=== PATIENT | male | born 1965 | race Caucasian/White ===

== ENCOUNTER 2017-09-18 12:34 | Day surgery (SDC) | payer OTHER ==
[~2017-09-18 12:34] MED LIST: ACET325 PO; ALBIPROI INH; ALBU90OI INH; ATOR20 PO; AZIT250 PO; Augmentin 875-1 EACH PO; Bactrim Ds Tab1 EACH PO; CODACE30 PO; FLUV80CR; GLIP10 PO; HYDACE5 PO; HYDGUAL120 PO; JANUMET PO; Janumet 50-5001 EACH PO; K-Dur 20 meq T20 MEQ PO; LISHYD2012; LISHYD2012 PO; LISI20 PO; LOVA20 PO; Lasix40 MG PO; Norco 10-325 T1 EACH PO; OXYACE5T PO; PRED20 PO; RXHYDACE PO; SITA50T2 PO; ZESTORETIC 20-1 EAC1 PO; ZESTORETIC 20-121 EA; [UNRECOGNIZED DRUG - OTHER]; [UNRECOGNIZED DRUG - REMARK]
[2018-01-01] MEDS ORDERED: LISI20 PO (14:42)
[2018-01-01] MEDS ORDERED: Bactrim Ds Tab1 EACH PO (14:43)
[2018-01-01] MEDS ORDERED: HYDR1TAB94 PO (14:44)
== END 2017-09-18 22:50 | disposition home or self-care (01) ==
LOC: WOUND 12:34
PROC: 0HBMXZZ Excision of Right Foot Skin, External Approach (ICD-10-PCS; principal; 2017-09-18)
DX: Z48.00 Encounter for change or removal of nonsurgical wound dressing (principal); E11.621 Type 2 diabetes mellitus with foot ulcer; I10 Essential (primary) hypertension; L97.519 Non-pressure chronic ulcer of other part of right foot with unspecified severity
CPT/HCPCS: 87070; 87075; 87077; 87147; 87186; 87205; G0463

== ENCOUNTER 2017-09-25 13:00 | Day surgery (SDC) | payer OTHER ==
[2018-01-01] MEDS ORDERED: LISI20 PO (14:42)
[2018-01-01] MEDS ORDERED: Bactrim Ds Tab1 EACH PO (14:43)
[2018-01-01] MEDS ORDERED: HYDR1TAB94 PO (14:44)
== END 2017-09-25 23:19 | disposition home or self-care (01) ==
LOC: WOUND 13:00
PROC: 0HBMXZZ Excision of Right Foot Skin, External Approach (ICD-10-PCS; principal; 2017-09-25)
DX: E11.621 Type 2 diabetes mellitus with foot ulcer (principal); L97.519 Non-pressure chronic ulcer of other part of right foot with unspecified severity; I10 Essential (primary) hypertension; L89.899 Pressure ulcer of other site, unspecified stage
CPT/HCPCS: G0463

== ENCOUNTER 2017-10-02 11:31 | Day surgery (SDC) | payer OTHER ==
[2018-01-01] MEDS ORDERED: LISI20 PO (14:42)
[2018-01-01] MEDS ORDERED: Bactrim Ds Tab1 EACH PO (14:43)
[2018-01-01] MEDS ORDERED: HYDR1TAB94 PO (14:44)
== END 2017-10-02 16:26 | disposition home or self-care (01) ==
LOC: WOUND 11:31
PROC: 0HBMXZZ Excision of Right Foot Skin, External Approach (ICD-10-PCS; principal; 2017-10-02)
DX: Z48.00 Encounter for change or removal of nonsurgical wound dressing (principal); E11.621 Type 2 diabetes mellitus with foot ulcer; I10 Essential (primary) hypertension; L89.899 Pressure ulcer of other site, unspecified stage
CPT/HCPCS: G0463

== ENCOUNTER 2017-10-08 12:59 | Day surgery (SDC) | payer OTHER ==
[2018-01-01] MEDS ORDERED: LISI20 PO (14:42)
[2018-01-01] MEDS ORDERED: Bactrim Ds Tab1 EACH PO (14:43)
[2018-01-01] MEDS ORDERED: HYDR1TAB94 PO (14:44)
== END 2017-10-08 22:58 | disposition home or self-care (01) ==
LOC: WOUND 12:59
DX: Z48.00 Encounter for change or removal of nonsurgical wound dressing (principal); E11.621 Type 2 diabetes mellitus with foot ulcer; I10 Essential (primary) hypertension; L89.899 Pressure ulcer of other site, unspecified stage; L97.519 Non-pressure chronic ulcer of other part of right foot with unspecified severity
CPT/HCPCS: G0463

== ENCOUNTER 2017-10-09 13:40 | Day surgery (SDC) | payer OTHER ==
[2018-01-01] MEDS ORDERED: LISI20 PO (14:42)
[2018-01-01] MEDS ORDERED: Bactrim Ds Tab1 EACH PO (14:43)
[2018-01-01] MEDS ORDERED: HYDR1TAB94 PO (14:44)
== END 2017-10-09 16:12 | disposition home or self-care (01) ==
LOC: WOUND
DX: Z48.00 Encounter for change or removal of nonsurgical wound dressing (principal); E11.621 Type 2 diabetes mellitus with foot ulcer; I10 Essential (primary) hypertension; L89.899 Pressure ulcer of other site, unspecified stage; L97.519 Non-pressure chronic ulcer of other part of right foot with unspecified severity
CPT/HCPCS: G0463

== ENCOUNTER 2017-10-16 12:58 | Day surgery (SDC) | payer OTHER ==
[2018-01-01] MEDS ORDERED: LISI20 PO (14:42)
[2018-01-01] MEDS ORDERED: Bactrim Ds Tab1 EACH PO (14:43)
[2018-01-01] MEDS ORDERED: HYDR1TAB94 PO (14:44)
== END 2017-10-16 15:57 | disposition home or self-care (01) ==
LOC: WOUND 12:58
PROC: 0HBMXZZ Excision of Right Foot Skin, External Approach (ICD-10-PCS; principal; 2017-10-16)
DX: Z48.00 Encounter for change or removal of nonsurgical wound dressing (principal); E11.621 Type 2 diabetes mellitus with foot ulcer; I10 Essential (primary) hypertension; L89.899 Pressure ulcer of other site, unspecified stage; L97.519 Non-pressure chronic ulcer of other part of right foot with unspecified severity
CPT/HCPCS: G0463

== ENCOUNTER 2017-11-05 12:55 | Inpatient (IN) | payer OTHER ==
[~2017-11-05] VITALS: Ht 172.7 cm; Wt 127.3 kg
[2017-11-05] MEDS ORDERED: Mobic15 MG PO (13:39)
[2017-11-05] MEDS ORDERED: FURO80 PO (13:40)
[2017-11-05] MEDS ORDERED: GLIP10 PO (13:40)
[2017-11-05] MEDS ORDERED: ZESTORETIC 20-121 EA PO (13:40)
[2017-11-05] MEDS ORDERED: JANUMET XR 50-1 EACH PO (13:40)
[2017-11-05] MEDS ORDERED: ATOR20 PO (13:41)
[2017-11-05] MEDS ORDERED: POTCHL20ER PO (13:41)
[2017-11-05 14:47] LABS: BASOPHILS ABSOLUTE AUTO 0.03 K/mm3 (0.00-0.23); BASOPHILS PERCENT AUTO 0 % (0-2); EOSINOPHILS PERCENT AUTO 2 % (0-6); Hematocrit 40.2 % (37.0-53.0); Hemoglobin 13.9 g/dL (13.5-17.5); IMMATURE GRAN ABSOLUTE AUTO 0.06 K/mm3 (0.00-0.10); IMMATURE GRAN PERCENT AUTO 1 % (0-1); LYMPHOCYTES PERCENT AUTO 15 % (21-46); MONOCYTES ABSOLUTE AUTO 0.88 K/mm3 (0.16-1.47); MONOCYTES PERCENT AUTO 10 % (4-13); Mean Corpuscular HGB 29.6 pg (26.0-34.0); Mean Corpuscular HGB Conc 34.6 g/dL (31.5-36.5); Mean Corpuscular Volume 86 fL (80-100); Mean Platelet Volume 10.5 fL (9.1-12.4); NEUTROPHILS ABSOLUTE AUTO 6.63 K/mm3 (1.96-9.15); NEUTROPHILS PERCENT AUTO 72 % (41-73); Platelet Count 288 K/mm3 (150-400); RDW Coefficient Variation 12.7 % (11.7-14.2); RDW Standard Deviation 39.6 fL (35.1-46.3)
[2017-11-05 15:19] LABS: Alanine Aminotransfer (ALT/SGP 34 U/L (12-78); Albumin, Blood 3.2 g/dL (3.4-5.0); Albumin/Globulin Ratio 0.7 (0.8-1.8); Alk Phos 94 U/L (50-136); Anion Gap 12 mmol/L (6-16); Aspartate Aminotrans (AST/SGOT 11 U/L (12-37); Bilirubin, Total 1.2 mg/dL (0.1-1.0); Blood Urea Nitrogen 18 mg/dL (8-24); Bun/Creatinine Ratio 28.7 (12.0-20.0); CO2, Blood 21 mmol/L (21-32); Calcium, Blood 8.8 mg/dL (8.5-10.1); Chloride, Blood 96 mmol/L (98-108); Creatinine, Blood 0.63 mg/dL (0.60-1.20); Globulin, Blood 4.6 g/dL (2.2-4.0); Glomerular Filtration Rate >60 (60-); Glucose, Blood 294 mg/dL (70-99); Potassium, Blood 4.1 mmol/L (3.5-5.5); Sodium, Blood 129 mmol/L (136-145); Total Protein, Blood 7.8 g/dL (6.4-8.2)
[2017-11-06 15:26] LABS: Vancomycin, Trough 18.5 ug/mL (5.0-10.0)
[2017-11-07 05:47] LABS: BASOPHILS ABSOLUTE AUTO 0.04 K/mm3 (0.00-0.23); BASOPHILS PERCENT AUTO 1 % (0-2); EOSINOPHILS ABSOLUTE AUTO 0.25 K/mm3 (0.00-0.68); EOSINOPHILS PERCENT AUTO 3 % (0-6); Hematocrit 39.9 % (37.0-53.0); Hemoglobin 13.9 g/dL (13.5-17.5); IMMATURE GRAN ABSOLUTE AUTO 0.02 K/mm3 (0.00-0.10); IMMATURE GRAN PERCENT AUTO 0 % (0-1); LYMPHOCYTES PERCENT AUTO 16 % (21-46); MONOCYTES ABSOLUTE AUTO 0.79 K/mm3 (0.16-1.47); MONOCYTES PERCENT AUTO 11 % (4-13); Mean Corpuscular HGB Conc 34.8 g/dL (31.5-36.5); Mean Corpuscular Volume 86 fL (80-100); Mean Platelet Volume 10.7 fL (9.1-12.4); NEUTROPHILS ABSOLUTE AUTO 5.05 K/mm3 (1.96-9.15); NEUTROPHILS PERCENT AUTO 69 % (41-73); Platelet Count 314 K/mm3 (150-400); RDW Coefficient Variation 12.8 % (11.7-14.2); RDW Standard Deviation 39.9 fL (35.1-46.3); Red Blood Cell Count 4.63 M/mm3 (4.30-5.90); White Blood Cell Count 7.35 K/mm3 (4.00-11.30)
[2017-11-07 06:11] LABS: Alanine Aminotransfer (ALT/SGP 45 U/L (12-78); Albumin/Globulin Ratio 0.6 (0.8-1.8); Alk Phos 90 U/L (50-136); Anion Gap 9 mmol/L (6-16); Aspartate Aminotrans (AST/SGOT 23 U/L (12-37); Bilirubin, Total 0.8 mg/dL (0.1-1.0); Blood Urea Nitrogen 15 mg/dL (8-24); Bun/Creatinine Ratio 25.1 (12.0-20.0); CO2, Blood 24 mmol/L (21-32); Calcium, Blood 8.6 mg/dL (8.5-10.1); Chloride, Blood 101 mmol/L (98-108); Globulin, Blood 4.7 g/dL (2.2-4.0); Glomerular Filtration Rate >60 (60-); Glucose, Blood 253 mg/dL (70-99); Potassium, Blood 4.1 mmol/L (3.5-5.5); Sodium, Blood 134 mmol/L (136-145); Total Protein, Blood 7.7 g/dL (6.4-8.2)
[2017-11-07 15:51] LABS: Vancomycin, Trough 19.2 ug/mL (5.0-10.0)
[2017-11-08 05:22] LABS: BASOPHILS ABSOLUTE AUTO 0.03 K/mm3 (0.00-0.23); BASOPHILS PERCENT AUTO 0 % (0-2); EOSINOPHILS ABSOLUTE AUTO 0.31 K/mm3 (0.00-0.68); EOSINOPHILS PERCENT AUTO 4 % (0-6); Hematocrit 38.6 % (37.0-53.0); Hemoglobin 13.2 g/dL (13.5-17.5); IMMATURE GRAN ABSOLUTE AUTO 0.03 K/mm3 (0.00-0.10); IMMATURE GRAN PERCENT AUTO 0 % (0-1); LYMPHOCYTES ABSOLUTE AUTO 1.57 K/mm3 (0.84-5.20); LYMPHOCYTES PERCENT AUTO 22 % (21-46); MONOCYTES ABSOLUTE AUTO 0.87 K/mm3 (0.16-1.47); MONOCYTES PERCENT AUTO 12 % (4-13); Mean Corpuscular HGB 29.2 pg (26.0-34.0); Mean Corpuscular HGB Conc 34.2 g/dL (31.5-36.5); Mean Corpuscular Volume 85 fL (80-100); Mean Platelet Volume 10.5 fL (9.1-12.4); NEUTROPHILS ABSOLUTE AUTO 4.47 K/mm3 (1.96-9.15); NEUTROPHILS PERCENT AUTO 61 % (41-73); Platelet Count 328 K/mm3 (150-400); RDW Coefficient Variation 12.6 % (11.7-14.2); RDW Standard Deviation 39.4 fL (35.1-46.3); Red Blood Cell Count 4.52 M/mm3 (4.30-5.90); White Blood Cell Count 7.28 K/mm3 (4.00-11.30)
[2017-11-08 05:47] LABS: Anion Gap 13 mmol/L (6-16); Blood Urea Nitrogen 21 mg/dL (8-24); Bun/Creatinine Ratio 32.8 (12.0-20.0); CO2, Blood 21 mmol/L (21-32); Calcium, Blood 8.6 mg/dL (8.5-10.1); Chloride, Blood 97 mmol/L (98-108); Creatinine, Blood 0.64 mg/dL (0.60-1.20); Glomerular Filtration Rate >60 (60-); Glucose, Blood 250 mg/dL (70-99); Potassium, Blood 3.6 mmol/L (3.5-5.5); Sodium, Blood 131 mmol/L (136-145)
[2017-11-11] MEDS ORDERED: CEPH500 PO (09:48)
[2017-11-11] MEDS ORDERED: INSDET100 SC (09:49)
[2018-01-01] MEDS ORDERED: LISI20 PO (14:42)
[2018-01-01] MEDS ORDERED: Bactrim Ds Tab1 EACH PO (14:43)
[2018-01-01] MEDS ORDERED: HYDR1TAB94 PO (14:44)
== END 2017-11-11 14:28 | disposition home or self-care (01) | DRG 616 ==
LOC: ER 12:55 → MEDS 16:39 → ENPENDDIS 11-11 09:00 → MEDS 11-11 14:28
PROVIDERS: Family Medicine; Nurse Practitioner Family; Podiatrist Foot & Ankle Surgery
PROC: 0Y6P0Z0 Detachment at Right 1st Toe, Complete, Open Approach (ICD-10-PCS; principal; 2017-11-06 13:15)
DX: E11.69 Type 2 diabetes mellitus with other specified complication (principal); L89.894 Pressure ulcer of other site, stage 4; I96 Gangrene, not elsewhere classified; E11.65 Type 2 diabetes mellitus with hyperglycemia; M86.9 Osteomyelitis, unspecified; E66.01 Morbid (severe) obesity due to excess calories; Z68.41 Body mass index [BMI] 40.0-44.9, adult; E11.52 Type 2 diabetes mellitus with diabetic peripheral angiopathy with gangrene; B95.61 Methicillin susceptible Staphylococcus aureus infection as the cause of diseases classified elsewhere; B95.1 Streptococcus, group B, as the cause of diseases classified elsewhere; E78.5 Hyperlipidemia, unspecified; I10 Essential (primary) hypertension; F17.220 Nicotine dependence, chewing tobacco, uncomplicated; Z91.040 Latex allergy status; Z91.048 Other nonmedicinal substance allergy status; Z79.84 Long term (current) use of oral hypoglycemic drugs; Z79.899 Other long term (current) drug therapy
CPT/HCPCS: 36415; 73630; 80048; 80053; 80202; 82947; 84295; 85025; 85651; 87071; 87075; 87077; 87147; 87186; 87205; 88305; 88311; 96365; 96375; 99285; A9270; J0690; J1815; J2250; J2543; J3010; J3370; J7030; J7050; J7120

== ENCOUNTER 2017-12-27 16:12 | Emergency (ER) | payer OTHER ==
[~2017-12-27] VITALS: Ht 172.7 cm; Wt 92.1 kg
[~2017-12-27 16:12] MED LIST changes: +CEPH500 PO; +FURO80 PO; +INSDET100 SC; +JANUMET XR 50-1 EACH PO; +Mobic15 MG PO; +POTCHL20ER PO; +ZESTORETIC 20-121 EA PO
[2017-12-27 17:40] LABS: BASOPHILS ABSOLUTE AUTO 0.03 K/mm3 (0.00-0.23); BASOPHILS PERCENT AUTO 0 % (0-2); EOSINOPHILS ABSOLUTE AUTO 0.23 K/mm3 (0.00-0.68); EOSINOPHILS PERCENT AUTO 3 % (0-6); Hematocrit 38.3 % (37.0-53.0); Hemoglobin 13.2 g/dL (13.5-17.5); IMMATURE GRAN ABSOLUTE AUTO 0.02 K/mm3 (0.00-0.10); IMMATURE GRAN PERCENT AUTO 0 % (0-1); LYMPHOCYTES ABSOLUTE AUTO 1.87 K/mm3 (0.84-5.20); LYMPHOCYTES PERCENT AUTO 27 % (21-46); MONOCYTES ABSOLUTE AUTO 0.85 K/mm3 (0.16-1.47); MONOCYTES PERCENT AUTO 12 % (4-13); Mean Corpuscular HGB 29.5 pg (26.0-34.0); Mean Corpuscular HGB Conc 34.5 g/dL (31.5-36.5); Mean Corpuscular Volume 86 fL (80-100); Mean Platelet Volume 10.4 fL (9.1-12.4); NEUTROPHILS ABSOLUTE AUTO 3.85 K/mm3 (1.96-9.15); NEUTROPHILS PERCENT AUTO 56 % (41-73); Platelet Count 285 K/mm3 (150-400); RDW Coefficient Variation 13.4 % (11.7-14.2); RDW Standard Deviation 41.2 fL (35.1-46.3); Red Blood Cell Count 4.48 M/mm3 (4.30-5.90); White Blood Cell Count 6.85 K/mm3 (4.00-11.30)
[2017-12-27] MEDS ORDERED: Vibramycin100 MG PO (17:51)
[2017-12-27 17:56] LABS: Alanine Aminotransfer (ALT/SGP 34 U/L (12-78); Albumin, Blood 3.4 g/dL (3.4-5.0); Albumin/Globulin Ratio 0.8 (0.8-1.8); Alk Phos 111 U/L (50-136); Anion Gap 9 mmol/L (6-16); Aspartate Aminotrans (AST/SGOT 16 U/L (12-37); Bilirubin, Total 0.6 mg/dL (0.1-1.0); Blood Urea Nitrogen 27 mg/dL (8-24); Bun/Creatinine Ratio 26.2 (12.0-20.0); CO2, Blood 20 mmol/L (21-32); Calcium, Blood 8.5 mg/dL (8.5-10.1); Chloride, Blood 103 mmol/L (98-108); Creatinine, Blood 1.03 mg/dL (0.60-1.20); Glomerular Filtration Rate >60 (60-); Glucose, Blood 196 mg/dL (70-99); Potassium, Blood 4.7 mmol/L (3.5-5.5); Sodium, Blood 132 mmol/L (136-145); Total Protein, Blood 7.4 g/dL (6.4-8.2)
[2018-01-01] MEDS ORDERED: LISI20 PO (14:42)
[2018-01-01] MEDS ORDERED: Bactrim Ds Tab1 EACH PO (14:43)
[2018-01-01] MEDS ORDERED: HYDR1TAB94 PO (14:44)
== END 2017-12-27 19:04 | disposition home or self-care (01) ==
LOC: ER 16:12
PROVIDERS: Emergency Medicine
DX: L03.031 Cellulitis of right toe (principal); E11.621 Type 2 diabetes mellitus with foot ulcer; L97.519 Non-pressure chronic ulcer of other part of right foot with unspecified severity; E78.00 Pure hypercholesterolemia, unspecified; I10 Essential (primary) hypertension; Z91.048 Other nonmedicinal substance allergy status; Z91.040 Latex allergy status; Z79.899 Other long term (current) drug therapy; Z79.4 Long term (current) use of insulin
CPT/HCPCS: 36415; 73660; 80053; 85025; 96365; 99283; J3370

== ENCOUNTER 2018-01-02 10:21 | Observation (INO) | payer OTHER ==
[~2018-01-02] VITALS: Ht 154.9 cm; Wt 127.5 kg
[~2018-01-02 10:21] MED LIST changes: +HYDR1TAB94 PO; +Vibramycin100 MG PO
== END 2018-01-03 12:55 | disposition home or self-care (01) ==
LOC: ORSCMMR 10:21 → SURS 15:38 → ORSCMMR 15:39 → SURS 16:32
DX: M86.171 Other acute osteomyelitis, right ankle and foot (principal); E11.621 Type 2 diabetes mellitus with foot ulcer; L97.512 Non-pressure chronic ulcer of other part of right foot with fat layer exposed
CPT/HCPCS: 82947; 87071; 87075; 87077; 87205; 88305; 88311; G0378; J0690; J2250; J3010; J7120

== ENCOUNTER 2018-03-25 20:52 | Emergency (ER) | payer OTHER ==
[~2018-03-25] VITALS: Ht 172.7 cm; Wt 124.7 kg
[2018-03-25 21:18] LABS: BASOPHILS ABSOLUTE AUTO 0.03 K/mm3 (0.00-0.23); BASOPHILS PERCENT AUTO 0 % (0-2); EOSINOPHILS ABSOLUTE AUTO 0.28 K/mm3 (0.00-0.68); EOSINOPHILS PERCENT AUTO 4 % (0-6); Hematocrit 39.6 % (37.0-53.0); Hemoglobin 13.9 g/dL (13.5-17.5); IMMATURE GRAN ABSOLUTE AUTO 0.03 K/mm3 (0.00-0.10); IMMATURE GRAN PERCENT AUTO 0 % (0-1); LYMPHOCYTES ABSOLUTE AUTO 2.74 K/mm3 (0.84-5.20); LYMPHOCYTES PERCENT AUTO 36 % (21-46); MONOCYTES ABSOLUTE AUTO 0.77 K/mm3 (0.16-1.47); MONOCYTES PERCENT AUTO 10 % (4-13); Mean Corpuscular HGB 30.1 pg (26.0-34.0); Mean Corpuscular HGB Conc 35.1 g/dL (31.5-36.5); Mean Corpuscular Volume 86 fL (80-100); Mean Platelet Volume 10.9 fL (9.1-12.4); NEUTROPHILS ABSOLUTE AUTO 3.76 K/mm3 (1.96-9.15); NEUTROPHILS PERCENT AUTO 49 % (41-73); Platelet Count 280 K/mm3 (150-400); RDW Coefficient Variation 12.5 % (11.7-14.2); RDW Standard Deviation 38.8 fL (35.1-46.3); Red Blood Cell Count 4.62 M/mm3 (4.30-5.90); White Blood Cell Count 7.61 K/mm3 (4.00-11.30)
[2018-03-25 21:36] LABS: Alanine Aminotransfer (ALT/SGP 58 U/L (12-78); Albumin, Blood 3.4 g/dL (3.4-5.0); Albumin/Globulin Ratio 0.9 (0.8-1.8); Alk Phos 84 U/L (50-136); Anion Gap 14 mmol/L (6-16); Aspartate Aminotrans (AST/SGOT 22 U/L (12-37); Bilirubin, Total 0.6 mg/dL (0.1-1.0); Blood Urea Nitrogen 11 mg/dL (8-24); Bun/Creatinine Ratio 14.6 (12.0-20.0); CO2, Blood 20 mmol/L (21-32); Calcium, Blood 8.3 mg/dL (8.5-10.1); Chloride, Blood 100 mmol/L (98-108); Creatinine, Blood 0.75 mg/dL (0.60-1.20); Globulin, Blood 3.7 g/dL (2.2-4.0); Glomerular Filtration Rate >60 (60-); Glucose, Blood 137 mg/dL (70-99); Potassium, Blood 3.6 mmol/L (3.5-5.5); Sodium, Blood 134 mmol/L (136-145); Total Protein, Blood 7.1 g/dL (6.4-8.2)
[2018-03-25] MEDS ORDERED: Pepcid20 MG PO (23:09)
== END 2018-03-25 23:18 | disposition home or self-care (01) ==
LOC: ER 20:52
PROVIDERS: Emergency Medicine
DX: K29.70 Gastritis, unspecified, without bleeding (principal); E66.01 Morbid (severe) obesity due to excess calories; R62.50 Unspecified lack of expected normal physiological development in childhood; Z91.048 Other nonmedicinal substance allergy status; Z91.040 Latex allergy status; Z79.899 Other long term (current) drug therapy; E11.9 Type 2 diabetes mellitus without complications; E78.5 Hyperlipidemia, unspecified; I10 Essential (primary) hypertension
CPT/HCPCS: 36415; 74022; 80053; 83690; 85025; 93005; 93010; 96374; 96375; 99284-25; J1885; J2405; J3010

== ENCOUNTER → 2018-04-29 | Outpatient (CLI) | payer OTHER ==
[~2018-04-29] MED LIST changes: +Pepcid20 MG PO
== END | disposition home or self-care (01) ==
LOC: PLD 10:43 → LAB SHORT 10:43
DX: M86.171 Other acute osteomyelitis, right ankle and foot (principal); L97.512 Non-pressure chronic ulcer of other part of right foot with fat layer exposed; E11.621 Type 2 diabetes mellitus with foot ulcer; L03.031 Cellulitis of right toe; Z89.421 Acquired absence of other right toe(s)
CPT/HCPCS: 88305; 88311

== ENCOUNTER → 2018-04-29 | Outpatient (CLI) | payer OTHER | END | disposition home or self-care (01) | LOC: LAB SHORT 15:00 → LAB 15:00 | DX: E11.621 Type 2 diabetes mellitus with foot ulcer (principal); L97.512 Non-pressure chronic ulcer of other part of right foot with fat layer exposed; L03.031 Cellulitis of right toe | CPT/HCPCS: 87071; 87075; 87077; 87147; 87186; 87205 ==

== ENCOUNTER 2018-05-02 10:38 | Day surgery (SDC) | payer OTHER | END 2018-05-02 11:04 | disposition home or self-care (01) | LOC: ATC 10:38 | DX: Z89.421 Acquired absence of other right toe(s) (principal); E11.9 Type 2 diabetes mellitus without complications; L03.031 Cellulitis of right toe | CPT/HCPCS: 96374; J0696 ==

== ENCOUNTER 2018-05-03 10:35 | Day surgery (SDC) | payer OTHER | END 2018-05-03 11:00 | disposition home or self-care (01) | LOC: ATC 10:35 | DX: Z89.421 Acquired absence of other right toe(s) (principal); E11.9 Type 2 diabetes mellitus without complications; L03.031 Cellulitis of right toe | CPT/HCPCS: 96374; J0696 ==

== ENCOUNTER 2018-05-03 11:08 | Emergency (ER) | payer OTHER ==
[~2018-05-03] VITALS: Ht 172.7 cm; Wt 93.0 kg
== END 2018-05-03 12:42 | disposition home or self-care (01) ==
LOC: ER 11:08
DX: S98.1 Traumatic amputation of one toe (principal); I10 Essential (primary) hypertension; E11.9 Type 2 diabetes mellitus without complications; E78.00 Pure hypercholesterolemia, unspecified; F17.220 Nicotine dependence, chewing tobacco, uncomplicated; Z91.048 Other nonmedicinal substance allergy status; Z91.040 Latex allergy status; Z79.899 Other long term (current) drug therapy
CPT/HCPCS: 99282

== ENCOUNTER 2018-05-22 17:04 | Emergency (ER) | payer OTHER ==
[~2018-05-22] VITALS: Ht 172.7 cm; Wt 104.8 kg
[2018-05-22] MEDS ORDERED: Amox Tr-K Clv1 EAC1 PO (17:13)
[2018-05-22] MEDS ORDERED: FURO40 PO (17:14)
[2018-05-22] MEDS ORDERED: GLIP10 PO (17:14)
[2018-05-22] MEDS ORDERED: Janumet 50-5001 EACH (17:15)
[2018-05-22] MEDS ORDERED: INSULANPEN (17:16)
[2018-05-22] MEDS ORDERED: POTCHL20ER PO (17:16)
[2018-05-22 18:31] LABS: BASOPHILS ABSOLUTE AUTO 0.04 K/mm3 (0.00-0.23); BASOPHILS PERCENT AUTO 1 % (0-2); EOSINOPHILS PERCENT AUTO 3 % (0-6); Hematocrit 40.2 % (37.0-53.0); Hemoglobin 13.9 g/dL (13.5-17.5); IMMATURE GRAN ABSOLUTE AUTO 0.03 K/mm3 (0.00-0.10); IMMATURE GRAN PERCENT AUTO 0 % (0-1); LYMPHOCYTES ABSOLUTE AUTO 2.04 K/mm3 (0.84-5.20); LYMPHOCYTES PERCENT AUTO 27 % (21-46); MONOCYTES PERCENT AUTO 11 % (4-13); Mean Corpuscular HGB Conc 34.6 g/dL (31.5-36.5); Mean Corpuscular Volume 87 fL (80-100); Mean Platelet Volume 10.6 fL (9.1-12.4); NEUTROPHILS ABSOLUTE AUTO 4.49 K/mm3 (1.96-9.15); NEUTROPHILS PERCENT AUTO 59 % (41-73); Platelet Count 316 K/mm3 (150-400); RDW Coefficient Variation 13.1 % (11.7-14.2); RDW Standard Deviation 40.9 fL (35.1-46.3); Red Blood Cell Count 4.64 M/mm3 (4.30-5.90)
[2018-05-22 18:46] LABS: Anion Gap 10 mmol/L (6-16); Blood Urea Nitrogen 25 mg/dL (8-24); Bun/Creatinine Ratio 31.7 (12.0-20.0); CO2, Blood 23 mmol/L (21-32); Calcium, Blood 9.2 mg/dL (8.5-10.1); Chloride, Blood 100 mmol/L (98-108); Creatinine, Blood 0.79 mg/dL (0.60-1.20); Glomerular Filtration Rate >60 (60-); Glucose, Blood 153 mg/dL (70-99); Potassium, Blood 3.5 mmol/L (3.5-5.5); Sodium, Blood 133 mmol/L (136-145)
== END 2018-05-22 19:55 | disposition home or self-care (01) ==
LOC: ER 17:04
PROVIDERS: Emergency Medicine
DX: L03.031 Cellulitis of right toe (principal); E11.9 Type 2 diabetes mellitus without complications; E78.5 Hyperlipidemia, unspecified; I10 Essential (primary) hypertension; Z91.048 Other nonmedicinal substance allergy status; Z91.040 Latex allergy status; Z79.899 Other long term (current) drug therapy; Z79.4 Long term (current) use of insulin
CPT/HCPCS: 36415; 73660; 80048; 85025; 85651; 86140; 99284-25

== ENCOUNTER → 2018-06-01 | Outpatient (CLI) | payer OTHER ==
[~2018-06-01] MED LIST changes: +Amox Tr-K Clv1 EAC1 PO; +FURO40 PO; +INSULANPEN; +Janumet 50-5001 EACH
== END | disposition home or self-care (01) ==
LOC: LAB SHORT 16:00 → LAB 16:00
DX: E11.621 Type 2 diabetes mellitus with foot ulcer (principal); L97.514 Non-pressure chronic ulcer of other part of right foot with necrosis of bone; M86.271 Subacute osteomyelitis, right ankle and foot
CPT/HCPCS: 87071; 87075; 87077; 87186; 87205

== ENCOUNTER 2018-06-08 10:23 | Day surgery (SDC) | payer OTHER ==
[~2018-06-08] VITALS: Ht 172.7 cm; Wt 127.3 kg
== END 2018-06-08 13:48 | disposition home or self-care (01) ==
LOC: ORSCSDS 10:23
PROVIDERS: Podiatrist
PROC: 0Y6R0Z0 Detachment at Right 2nd Toe, Complete, Open Approach (ICD-10-PCS; principal; 2018-06-08 12:00)
DX: E11.621 Type 2 diabetes mellitus with foot ulcer (principal); L97.514 Non-pressure chronic ulcer of other part of right foot with necrosis of bone; L03.031 Cellulitis of right toe; R62.50 Unspecified lack of expected normal physiological development in childhood; I10 Essential (primary) hypertension; E78.5 Hyperlipidemia, unspecified; Z79.84 Long term (current) use of oral hypoglycemic drugs; Z79.899 Other long term (current) drug therapy
CPT/HCPCS: 82947; 88305; 88311; J0690; J2250; J7120

== ENCOUNTER 2018-11-30 21:26 | Emergency (ER) | payer OTHER ==
[~2018-11-30] VITALS: Ht 172.7 cm; Wt 121.6 kg
== END 2018-12-01 00:36 | disposition home or self-care (01) ==
LOC: ER 21:26
DX: E11.621 Type 2 diabetes mellitus with foot ulcer (principal); L97.519 Non-pressure chronic ulcer of other part of right foot with unspecified severity; Z91.048 Other nonmedicinal substance allergy status; Z91.040 Latex allergy status; Z79.899 Other long term (current) drug therapy; Z79.4 Long term (current) use of insulin; E11.9 Type 2 diabetes mellitus without complications; I10 Essential (primary) hypertension; E78.00 Pure hypercholesterolemia, unspecified
CPT/HCPCS: 73620; 99283-25

== ENCOUNTER 2018-12-21 20:02 | Emergency (ER) | payer OTHER ==
[~2018-12-21] VITALS: Ht 172.7 cm; Wt 131.8 kg
[2018-12-21 20:31] LABS: BASOPHILS ABSOLUTE AUTO 0.04 K/mm3 (0.00-0.23); BASOPHILS PERCENT AUTO 1 % (0-2); EOSINOPHILS ABSOLUTE AUTO 0.23 K/mm3 (0.00-0.68); EOSINOPHILS PERCENT AUTO 3 % (0-6); Hematocrit 41.3 % (37.0-53.0); Hemoglobin 14.1 g/dL (13.5-17.5); IMMATURE GRAN ABSOLUTE AUTO 0.04 K/mm3 (0.00-0.10); IMMATURE GRAN PERCENT AUTO 1 % (0-1); LYMPHOCYTES ABSOLUTE AUTO 2.42 K/mm3 (0.84-5.20); LYMPHOCYTES PERCENT AUTO 32 % (21-46); MONOCYTES ABSOLUTE AUTO 0.89 K/mm3 (0.16-1.47); MONOCYTES PERCENT AUTO 12 % (4-13); Mean Corpuscular HGB 30.3 pg (26.0-34.0); Mean Corpuscular HGB Conc 34.1 g/dL (31.5-36.5); Mean Corpuscular Volume 89 fL (80-100); Mean Platelet Volume 10.5 fL (9.1-12.4); NEUTROPHILS ABSOLUTE AUTO 3.97 K/mm3 (1.96-9.15); NEUTROPHILS PERCENT AUTO 52 % (41-73); Platelet Count 264 K/mm3 (150-400); RDW Standard Deviation 44.8 fL (35.1-46.3); Red Blood Cell Count 4.66 M/mm3 (4.30-5.90); White Blood Cell Count 7.59 K/mm3 (4.00-11.30)
[2018-12-21 20:54] LABS: Alanine Aminotransfer (ALT/SGP 52 U/L (12-78); Albumin, Blood 3.4 g/dL (3.4-5.0); Albumin/Globulin Ratio 0.9 (0.8-1.8); Alk Phos 79 U/L (50-136); Anion Gap 11 mmol/L (6-16); Aspartate Aminotrans (AST/SGOT 23 U/L (12-37); Bilirubin, Total 0.6 mg/dL (0.1-1.0); Blood Urea Nitrogen 20 mg/dL (8-24); Bun/Creatinine Ratio 29.9 (12.0-20.0); CO2, Blood 23 mmol/L (21-32); Calcium, Blood 8.3 mg/dL (8.5-10.1); Chloride, Blood 97 mmol/L (98-108); Creatinine, Blood 0.67 mg/dL (0.60-1.20); Globulin, Blood 3.9 g/dL (2.2-4.0); Glomerular Filtration Rate >60 (60-); Glucose, Blood 241 mg/dL (70-99); Potassium, Blood 3.4 mmol/L (3.5-5.5); Sodium, Blood 131 mmol/L (136-145); Total Protein, Blood 7.3 g/dL (6.4-8.2); Troponin I <0.015 ng/mL (0.000-0.040)
== END 2018-12-21 22:32 | disposition home or self-care (01) ==
LOC: ER 20:02
PROVIDERS: Physician Assistant
DX: R07.9 Chest pain, unspecified (principal); R06.02 Shortness of breath; I10 Essential (primary) hypertension; E11.9 Type 2 diabetes mellitus without complications; E78.00 Pure hypercholesterolemia, unspecified; Z91.048 Other nonmedicinal substance allergy status; Z91.040 Latex allergy status; Z79.899 Other long term (current) drug therapy; Z79.4 Long term (current) use of insulin
CPT/HCPCS: 36415; 71046; 80053; 84484; 85025; 93005; 93010; 99284-25

== ENCOUNTER 2019-02-28 12:50 | Emergency (ER) | payer OTHER ==
[~2019-02-28] VITALS: Ht 172.7 cm; Wt 121.6 kg
[2019-02-28 13:16] LABS: Base Excess Venous -7.2 mmol/L; Bicarbonate Venous 19.6 mmol/L (24.0-30.0); PCO2 Venous 31.4 mmHg (38-42); PO2 Venous 150 mmHg (38-42); pH Blood Venous 7.37 (7.34-7.37)
[2019-02-28 13:21] LABS: BASOPHILS ABSOLUTE AUTO 0.05 K/mm3 (0.00-0.23); BASOPHILS PERCENT AUTO 1 % (0-2); EOSINOPHILS ABSOLUTE AUTO 0.16 K/mm3 (0.00-0.68); EOSINOPHILS PERCENT AUTO 2 % (0-6); Hematocrit 40.8 % (37.0-53.0); Hemoglobin 13.9 g/dL (13.5-17.5); IMMATURE GRAN ABSOLUTE AUTO 0.07 K/mm3 (0.00-0.10); IMMATURE GRAN PERCENT AUTO 1 % (0-1); LYMPHOCYTES ABSOLUTE AUTO 1.76 K/mm3 (0.84-5.20); LYMPHOCYTES PERCENT AUTO 26 % (21-46); MONOCYTES ABSOLUTE AUTO 0.78 K/mm3 (0.16-1.47); MONOCYTES PERCENT AUTO 11 % (4-13); Mean Corpuscular HGB 29.8 pg (26.0-34.0); Mean Corpuscular HGB Conc 34.1 g/dL (31.5-36.5); Mean Corpuscular Volume 87 fL (80-100); Mean Platelet Volume 11.3 fL (9.1-12.4); NEUTROPHILS ABSOLUTE AUTO 4.08 K/mm3 (1.96-9.15); NEUTROPHILS PERCENT AUTO 59 % (41-73); Platelet Count 260 K/mm3 (150-400); RDW Coefficient Variation 12.7 % (11.7-14.2); RDW Standard Deviation 40.8 fL (35.1-46.3); Red Blood Cell Count 4.67 M/mm3 (4.30-5.90)
[2019-02-28 13:21] LABS: Source, Urine Clean Catch
[2019-02-28 13:32] LABS: Bilirubin, Urine Neg (Neg); Blood, Urine Neg (Neg); Glucose Qualitative, Urine 4+ (Neg); Ketones, Urine Neg (Neg); Leukocyte Esterase, Urine Neg (Neg); Nitrite, Urine Neg (Neg); Protein, Urine Neg (Neg); Specific Gravity, Urine 1.005 (1.003-1.022); Urobilinogen, Urine NORM (Normal); pH, Urine 6.5 (5.0-8.0)
[2019-02-28 13:41] LABS: Alanine Aminotransfer (ALT/SGP 42 U/L (12-78); Albumin, Blood 3.6 g/dL (3.4-5.0); Alk Phos 100 U/L (50-136); Anion Gap 14 mmol/L (6-16); Aspartate Aminotrans (AST/SGOT 12 U/L (12-37); Beta-hydroxybutyrate 0.9 mg/dL (0.2-2.8); Bilirubin, Total 0.4 mg/dL (0.1-1.0); Blood Urea Nitrogen 13 mg/dL (8-24); Bun/Creatinine Ratio 17.6 (12.0-20.0); CO2, Blood 19 mmol/L (21-32); Calcium, Blood 8.2 mg/dL (8.5-10.1); Chloride, Blood 97 mmol/L (98-108); Creatinine, Blood 0.74 mg/dL (0.60-1.20); Globulin, Blood 3.7 g/dL (2.2-4.0); Glomerular Filtration Rate >60 (60-); Glucose, Blood 518 mg/dL (70-99); Sodium, Blood 130 mmol/L (136-145); Total Protein, Blood 7.3 g/dL (6.4-8.2)
[2019-02-28 13:43] LABS: Appearance, Urine Clear (Clear); Color, Urine Pale Yellow (P-Yellow)
== END 2019-02-28 14:42 | disposition home or self-care (01) ==
LOC: ER 12:50
PROVIDERS: Emergency Medicine
DX: E11.621 Type 2 diabetes mellitus with foot ulcer (principal); E11.65 Type 2 diabetes mellitus with hyperglycemia; L97.519 Non-pressure chronic ulcer of other part of right foot with unspecified severity; Z91.048 Other nonmedicinal substance allergy status; Z91.040 Latex allergy status; Z79.899 Other long term (current) drug therapy; Z79.4 Long term (current) use of insulin; E78.00 Pure hypercholesterolemia, unspecified; I10 Essential (primary) hypertension
CPT/HCPCS: 36415; 71045; 80053; 81003; 82010; 82803; 85025; 93005; 93010; 99284-25; J1815

== ENCOUNTER 2019-03-14 01:10 | Inpatient (IN) | payer OTHER ==
[~2019-03-14] VITALS: Ht 172.7 cm; Wt 112.0 kg
[2019-03-14 02:34] LABS: BASOPHILS ABSOLUTE AUTO 0.03 K/mm3 (0.00-0.23); BASOPHILS PERCENT AUTO 0 % (0-2); EOSINOPHILS ABSOLUTE AUTO 0.26 K/mm3 (0.00-0.68); EOSINOPHILS PERCENT AUTO 3 % (0-6); Hematocrit 43.8 % (37.0-53.0); Hemoglobin 14.8 g/dL (13.5-17.5); IMMATURE GRAN ABSOLUTE AUTO 0.06 K/mm3 (0.00-0.10); IMMATURE GRAN PERCENT AUTO 1 % (0-1); LYMPHOCYTES ABSOLUTE AUTO 2.32 K/mm3 (0.84-5.20); LYMPHOCYTES PERCENT AUTO 28 % (21-46); MONOCYTES ABSOLUTE AUTO 0.76 K/mm3 (0.16-1.47); MONOCYTES PERCENT AUTO 9 % (4-13); Mean Corpuscular HGB 29.6 pg (26.0-34.0); Mean Corpuscular HGB Conc 33.8 g/dL (31.5-36.5); Mean Corpuscular Volume 88 fL (80-100); Mean Platelet Volume 10.9 fL (9.1-12.4); NEUTROPHILS ABSOLUTE AUTO 4.79 K/mm3 (1.96-9.15); NEUTROPHILS PERCENT AUTO 58 % (41-73); Platelet Count 292 K/mm3 (150-400); RDW Standard Deviation 41.3 fL (35.1-46.3); White Blood Cell Count 8.22 K/mm3 (4.00-11.30)
[2019-03-14 02:53] LABS: Albumin, Blood 3.8 g/dL (3.4-5.0); Albumin/Globulin Ratio 0.8 (0.8-1.8); Bilirubin, Total 0.4 mg/dL (0.1-1.0); Bun/Creatinine Ratio 18.8 (12.0-20.0); Calcium, Blood 9.8 mg/dL (8.5-10.1); Creatinine, Blood 1.33 mg/dL (0.60-1.20); Globulin, Blood 4.5 g/dL (2.2-4.0); Potassium, Blood 3.4 mmol/L (3.5-5.5); Total Protein, Blood 8.3 g/dL (6.4-8.2)
[2019-03-14 05:51] LABS: BASOPHILS ABSOLUTE AUTO 0.05 K/mm3 (0.00-0.23); BASOPHILS PERCENT AUTO 1 % (0-2); EOSINOPHILS ABSOLUTE AUTO 0.27 K/mm3 (0.00-0.68); EOSINOPHILS PERCENT AUTO 4 % (0-6); Hematocrit 41.9 % (37.0-53.0); Hemoglobin 14.2 g/dL (13.5-17.5); IMMATURE GRAN ABSOLUTE AUTO 0.07 K/mm3 (0.00-0.10); IMMATURE GRAN PERCENT AUTO 1 % (0-1); LYMPHOCYTES ABSOLUTE AUTO 2.04 K/mm3 (0.84-5.20); LYMPHOCYTES PERCENT AUTO 27 % (21-46); MONOCYTES ABSOLUTE AUTO 0.82 K/mm3 (0.16-1.47); MONOCYTES PERCENT AUTO 11 % (4-13); Mean Corpuscular HGB 29.5 pg (26.0-34.0); Mean Corpuscular HGB Conc 33.9 g/dL (31.5-36.5); Mean Corpuscular Volume 87 fL (80-100); Mean Platelet Volume 10.6 fL (9.1-12.4); NEUTROPHILS ABSOLUTE AUTO 4.46 K/mm3 (1.96-9.15); NEUTROPHILS PERCENT AUTO 58 % (41-73); Platelet Count 277 K/mm3 (150-400); RDW Coefficient Variation 13.2 % (11.7-14.2); RDW Standard Deviation 41.7 fL (35.1-46.3); Red Blood Cell Count 4.81 M/mm3 (4.30-5.90); White Blood Cell Count 7.71 K/mm3 (4.00-11.30)
[2019-03-14 06:04] LABS: Bun/Creatinine Ratio 18.2 (12.0-20.0); Calcium, Blood 9.5 mg/dL (8.5-10.1); Creatinine, Blood 1.43 mg/dL (0.60-1.20); Potassium, Blood 3.6 mmol/L (3.5-5.5)
--- NOTE | 2019-03-14 17:54 | NUR ---
SHIFT SUMMARY PT HAS DONE WELL TODAY, AMBULATING SEVERAL TIMES IN HALLWAYS. PAIN CONTROLLED WITH TYLENOL. HOSPITALIST AWARE NO PODIATRY CONSULT UNTIL FRIDAY.
[2019-03-15 05:02] LABS: Anion Gap 5 mmol/L (6-16); Blood Urea Nitrogen 21 mg/dL (8-24); Bun/Creatinine Ratio 23.2 (12.0-20.0); CO2, Blood 24 mmol/L (21-32); Calcium, Blood 8.9 mg/dL (8.5-10.1); Chloride, Blood 108 mmol/L (98-108); Creatinine, Blood 0.91 mg/dL (0.60-1.20); Glomerular Filtration Rate >60 (60-); Glucose, Blood 241 mg/dL (70-99); Potassium, Blood 4.6 mmol/L (3.5-5.5); Sodium, Blood 137 mmol/L (136-145)
--- NOTE | 2019-03-15 07:46 | NUR ---
SHIFT SUMMARY PT RESTED WELL T/O NIGHT. AAOX4. DISCOMFORT WNL, NO NAUSEA/EMESIS. WOUND TO RLE BOBBY WITH NON-SKID SOCK IN PLACE. PT UP AMBULATING WELL IN ROOM. IV ABX PER ORDERS. NO CHANGES THIS SHIFT. ELEVATED BP NOTED, PT REPORTING TO BEING "WOKE UP". REPORT TO DAY SHIFT RN. PT OUT IN HALLS AMBULATING AND TALKING WITH STAFF AT THIS TIME.
--- NOTE | 2019-03-15 08:28 | NUR ---
HTN HTN NOTED; WILL ASK TO RESUME HOME BP MEDS WHEN MD ROUNDS. PT DENIES DIZZINESS, CP, PALPTATIONS, OR SOB.
--- NOTE | 2019-03-15 11:31 | NUR ---
DR BANKS CONSULT DR BEATTY'S OFFICE CALLED THIS AM, OFFICE RETURNED CALL AND DR BANKS TO SEE PATIENT THIS EVENING AFTER CLINIC. PT UPDATED AND EXCITED.
--- NOTE | 2019-03-15 15:21 | NUR ---
Initial palliative care consult: John is a 53 year old gentleman with a non-healing foot wound on his right foot that he states he has had for about a year and a half. 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 He used to work at [employer], however at this time due to his foot infection he is unable to work. He does not drive, he relies on his caregiver and friends for transportation. He reports that he has a caregiver, Michelle, who comes to help with cooking and sometimes grocery shopping Wednesdays and . His spring encaser through [employer] is Abad. He reports that Abad is working on increasing his caregiver hours at home. At this time he is ambulatory and reports that he walks about 2.5 miles per day to help with his blood sugar control. He reports hyperglycemia at home despite following a diabetic diet and managing his carbohydrates. He blames his foot infection for his elevated blood sugars. He has a nurse, Gely, who helps with medication management in the home. Michelle draws up his insulin for him as he has difficulty seeing the small markings on the syringe. He reports that his insurance company will not cover the insulin pens, however the current system of Michelle drawing up the scheduled daily dose of insulin seems to be working at this time according to him. He currently has no discomfort. He reports the medical case worker visited with him earlier today and he has the new dietary paperwork put in a safe place for when he goes home. We discussed weight loss, dietary restrictions, activity per MD orders. Plan is for Dr. Stanton to consult with pt this evening. John is familiar with Dr. Stanton as he is his certified medical records coder as an outpatient. He confirms his full code status at this time. PC will continue to follow for advanced care planning and symptom management.
[2019-03-15 16:54] LABS: Vancomycin, Trough 12.8 ug/mL (5.0-10.0)
--- NOTE | 2019-03-15 18:08 | NUR ---
SHIFT SUMMARY PT HAS DONE VERY WELL TODAY. AMBULATING FREQ, PAIN MANAGED WITH NON-PHARMALOGICAL, CONSULT CALLED AND AWAITING DR BANKS TO VISIT PT JOE, HOSPITALIST CALLED DUE TO TRENDING BS AND NEW ORDERS RECIEVED.
--- NOTE | 2019-03-16 06:15 | NUR ---
PT HAD NO ACUTE CHANGES T/O NIGHT; VSS. NO DRNG NOTED FROM RIGHT FOOT ULCER. PT DENIED PAIN/N/V. PT AMB INDEP IN HALLS FREQUENTLY T/O NIGHT. PT NPO POST MIDNIGHT, AWAITING PODIATRY CONSULT. IV ABX CONT PER ORDERS. PT PLEASANT AND COOPERATIVE W/CARE, IS USING CALL LIGHT FOR ASSISTANCE, WILL CONT TO MONITOR UNTIL REP GIVEN TO ONCOMING RN.
--- NOTE | 2019-03-16 17:22 | NUR ---
SHIFT SUMMARY PT HAS DONE WELL TODAY. DR BANKS INTO SEE PT AND EVAL FOOT. WILL COME BACK TOMORROW AND POSSIBILY PLACE CAST. VIKTORIYA APPLIED PER HIS REQUEST.
--- NOTE | 2019-03-16 19:59 | NUR ---
PT OUT OF ROOM. WILL DO ASSESSMENT WHEN PT RETURNS.
[2019-03-17 04:22] LABS: Vancomycin, Trough 13.1 ug/mL (5.0-10.0)
--- NOTE | 2019-03-17 06:19 | NUR ---
PT VSS T/O NIGHT. PT DENIED PAIN/N/V. DRESSING TO R FOOT INTACT. RLE SWOLLEN, PT ENC TO ELEVATE WHILE IN BED. PT AMB FREQUENTLY IN HALLS. IV ABX CONT PER ORDERS. PLAN FOR DEBRIEDMENT BY DR NIX TODAY.
--- NOTE | 2019-03-17 07:25 | NUR ---
PT SLEEPING WAKES TO VERBAL STIMULI PT OOB TO BATHROOM THEN BACK TO BED ASKED PT IF HE HAS ANY PAIN STATED NO DUE TO THE NEUROPATHY STATED DR IS COMING THIS AM TO DEBRIDE THE R FOOT POSS CASTING
--- NOTE | 2019-03-17 09:46 | NUR ---
DR LEONARDO BY TO SEE PT CALLED DR NIX OFFICE RE PLAN
--- NOTE | 2019-03-17 12:23 | NUR ---
PT EATING LUNCH MEDS GIVEN SCHED
--- NOTE | 2019-03-17 15:58 | NUR ---
pt stated he had another bm still awaiting dr proctor
--- NOTE | 2019-03-17 18:50 | NUR ---
dr proctor by to see pt dressing changed with debridement called dr ballesteros not available to discharge pt this robert will discharge pt in am
--- NOTE | 2019-03-17 19:04 | NUR ---
AMBULATING IN HALLWAY WITH IV POLE.
--- NOTE | 2019-03-17 22:00 | NUR ---
AMBULATING IN HALLWAY WITH IV POLE.
--- NOTE | 2019-03-18 05:15 | NUR ---
AMBULATING IN HALLS WITH IV POLE. STOPPING TO TALK WITH STAFF ALONG THE WAY. WILL CONTINUE TO MONITOR.
--- NOTE | 2019-03-18 06:37 | NUR ---
SHIFT SUMMARY HAD AMBULATED IN HALLS MULTIPLE TIMES THIS SHIFT. IS EXCITED ABOUT GOING HOME TODAY. NO C/O PAIN, DISCOMFORT, FURTHER NEEDS AT THIS TIME. SAFETY MEASURES IN PLACE. WILL GIVE HAND OFF TO ONCOMING SHIFT USING SBAR.
[2019-03-18] MEDS ORDERED: LEVFLO500 PO (08:44)
[2019-03-18] MEDS ORDERED: SANTYL30 GM TOP (08:44)
[2019-03-18] MEDS ORDERED: DOCU100 PO (08:45)
[2019-03-18] MEDS ORDERED: TYLENOL325 MG PO (08:45)
--- NOTE | 2019-03-18 08:50 | NUR ---
DISCHARGE PT EDUCATED ON AND RECEIVED PRINTED DC INSTRUCTIONS. PT VERBALIZED AN UNDERSTANDING. IV DC'D. RX FAXED OVER TO [facility] PER PT REQUEST. PT REFUSES WOUND CARE THIS MORNING BEFORE DISCHARGE. PT DENIES PAIN, N/V, SOB. PT INDEPENDENT. PT LEFT WITH ALL PERSONAL BELONGINGS.
== END 2019-03-18 08:50 | disposition home or self-care (01) | DRG 872 ==
LOC: ER 01:10 → SURS 05:12
PROVIDERS: Emergency Medicine; Internal Medicine; ADMIT Hospitalist
PROC: 0HBMXZZ Excision of Right Foot Skin, External Approach (ICD-10-PCS; principal; 2019-03-17)
DX: A41.9 Sepsis, unspecified organism (principal); N17.9 Acute kidney failure, unspecified; E87.1 Hypo-osmolality and hyponatremia; M86.9 Osteomyelitis, unspecified; R65.20 Severe sepsis without septic shock; I95.9 Hypotension, unspecified; E11.621 Type 2 diabetes mellitus with foot ulcer; I10 Essential (primary) hypertension; E66.01 Morbid (severe) obesity due to excess calories; L97.511 Non-pressure chronic ulcer of other part of right foot limited to breakdown of skin; E11.42 Type 2 diabetes mellitus with diabetic polyneuropathy; E78.5 Hyperlipidemia, unspecified; F17.200 Nicotine dependence, unspecified, uncomplicated; Z66 Do not resuscitate; Z91.040 Latex allergy status; Z91.048 Other nonmedicinal substance allergy status; Z89.421 Acquired absence of other right toe(s); Z79.84 Long term (current) use of oral hypoglycemic drugs; Z79.899 Other long term (current) drug therapy; Z68.37 Body mass index [BMI] 37.0-37.9, adult
CPT/HCPCS: 36415; 73620; 80048; 80053; 80202; 82565; 82947; 83605; 85025; 85651; 86140; 87040; 93925; 96365; 96375; 99284-25; A9270; J1650; J2543; J3370; J3480; J7030; J7050

== ENCOUNTER 2019-03-18 20:46 | Emergency (ER) | payer OTHER ==
[~2019-03-18] VITALS: Ht 180.3 cm; Wt 112.5 kg
[~2019-03-18 20:46] MED LIST changes: +DOCU100 PO; +LEVFLO500 PO; +SANTYL30 GM TOP; +TYLENOL325 MG PO
== END 2019-03-18 23:14 | disposition home or self-care (01) ==
LOC: ER 20:46
DX: L97.519 Non-pressure chronic ulcer of other part of right foot with unspecified severity (principal); E11.9 Type 2 diabetes mellitus without complications; I10 Essential (primary) hypertension; Z91.048 Other nonmedicinal substance allergy status; Z91.040 Latex allergy status; Z79.899 Other long term (current) drug therapy; Z79.4 Long term (current) use of insulin; Z87.891 Personal history of nicotine dependence
CPT/HCPCS: 99283

== ENCOUNTER 2019-03-22 22:01 | Emergency (ER) | payer OTHER ==
[~2019-03-22] VITALS: Ht 172.7 cm; Wt 115.2 kg
[2019-03-22] MEDS ORDERED: Tylenol325 MG PO (22:34)
== END 2019-03-22 22:42 | disposition home or self-care (01) ==
LOC: ER 22:01
DX: E11.621 Type 2 diabetes mellitus with foot ulcer (principal); L97.519 Non-pressure chronic ulcer of other part of right foot with unspecified severity; G89.18 Other acute postprocedural pain; Z91.048 Other nonmedicinal substance allergy status; Z91.040 Latex allergy status; Z79.899 Other long term (current) drug therapy; Z79.4 Long term (current) use of insulin; E78.00 Pure hypercholesterolemia, unspecified; I10 Essential (primary) hypertension
CPT/HCPCS: 99283

== ENCOUNTER 2019-05-18 01:47 | Emergency (ER) | payer OTHER ==
[~2019-05-18] VITALS: Ht 172.7 cm; Wt 122.5 kg
[~2019-05-18 01:47] MED LIST changes: +Tylenol325 MG PO
[2019-05-18 02:13] LABS: Source, Urine Clean Catch
[2019-05-18 02:15] LABS: Bilirubin, Urine Neg (Neg); Blood, Urine Neg (Neg); Glucose Qualitative, Urine 4+ (Neg); Ketones, Urine Neg (Neg); Leukocyte Esterase, Urine Neg (Neg); Nitrite, Urine Neg (Neg); Protein, Urine Neg (Neg); Urobilinogen, Urine NORM (Normal)
[2019-05-18 02:19] LABS: Appearance, Urine Clear (Clear); Color, Urine Yellow (P-Yellow)
[2019-05-18 02:43] LABS: BASOPHILS ABSOLUTE AUTO 0.04 K/mm3 (0.00-0.23); BASOPHILS PERCENT AUTO 1 % (0-2); EOSINOPHILS ABSOLUTE AUTO 0.24 K/mm3 (0.00-0.68); EOSINOPHILS PERCENT AUTO 3 % (0-6); Hematocrit 39.8 % (37.0-53.0); Hemoglobin 13.3 g/dL (13.5-17.5); IMMATURE GRAN ABSOLUTE AUTO 0.02 K/mm3 (0.00-0.10); IMMATURE GRAN PERCENT AUTO 0 % (0-1); LYMPHOCYTES ABSOLUTE AUTO 2.27 K/mm3 (0.84-5.20); LYMPHOCYTES PERCENT AUTO 30 % (21-46); MONOCYTES ABSOLUTE AUTO 0.77 K/mm3 (0.16-1.47); MONOCYTES PERCENT AUTO 10 % (4-13); Mean Corpuscular HGB 29.2 pg (26.0-34.0); Mean Corpuscular HGB Conc 33.4 g/dL (31.5-36.5); Mean Corpuscular Volume 87 fL (80-100); Mean Platelet Volume 10.9 fL (9.1-12.4); NEUTROPHILS ABSOLUTE AUTO 4.31 K/mm3 (1.96-9.15); NEUTROPHILS PERCENT AUTO 56 % (41-73); Platelet Count 245 K/mm3 (150-400); RDW Coefficient Variation 12.7 % (11.7-14.2); RDW Standard Deviation 40.5 fL (35.1-46.3); Red Blood Cell Count 4.56 M/mm3 (4.30-5.90); White Blood Cell Count 7.65 K/mm3 (4.00-11.30)
[2019-05-18 03:03] LABS: Alanine Aminotransfer (ALT/SGP 63 U/L (12-78); Albumin, Blood 3.4 g/dL (3.4-5.0); Albumin/Globulin Ratio 0.9 (0.8-1.8); Alk Phos 73 U/L (50-136); Anion Gap 11 mmol/L (6-16); Aspartate Aminotrans (AST/SGOT 23 U/L (12-37); Bilirubin, Total 0.6 mg/dL (0.1-1.0); Blood Urea Nitrogen 23 mg/dL (8-24); Bun/Creatinine Ratio 36.5 (12.0-20.0); CO2, Blood 21 mmol/L (21-32); Calcium, Blood 8.6 mg/dL (8.5-10.1); Chloride, Blood 106 mmol/L (98-108); Creatinine, Blood 0.63 mg/dL (0.60-1.20); Globulin, Blood 3.7 g/dL (2.2-4.0); Glomerular Filtration Rate >60 (60-); Glucose, Blood 197 mg/dL (70-99); Potassium, Blood 3.5 mmol/L (3.5-5.5); Sodium, Blood 138 mmol/L (136-145); Total Protein, Blood 7.1 g/dL (6.4-8.2)
== END 2019-05-18 03:25 | disposition home or self-care (01) ==
LOC: ER 01:47
PROVIDERS: Emergency Medicine
DX: L97.919 Non-pressure chronic ulcer of unspecified part of right lower leg with unspecified severity (principal); E11.9 Type 2 diabetes mellitus without complications; I10 Essential (primary) hypertension; E78.00 Pure hypercholesterolemia, unspecified; Z91.040 Latex allergy status; Z91.048 Other nonmedicinal substance allergy status; Z79.4 Long term (current) use of insulin; Z79.899 Other long term (current) drug therapy
CPT/HCPCS: 80053; 81003; 85025; 99283

== ENCOUNTER 2019-06-18 10:56 | Day surgery (SDC) | payer OTHER ==
[~2019-06-18] VITALS: Ht 172.7 cm; Wt 126.5 kg
--- NOTE | 2019-06-18 12:26 | NUR ---
06/18/19 1226 Yessi Aguirre PT NOTED TO HAVE MULTIPLE SMALL OPEN SORES ON LOWER LEG AND FOOT.
--- NOTE | 2019-06-18 13:14 | NUR ---
06/18/19 1314 Toya Calle REPORT TO LAURYN CHEUNG
== END 2019-06-18 13:30 | disposition home or self-care (01) ==
LOC: ORSCSDS 10:56
PROVIDERS: Podiatrist Foot & Ankle Surgery
PROC: 0L8N0ZZ Division of Right Lower Leg Tendon, Open Approach (ICD-10-PCS; principal; 2019-06-18 12:00)
DX: E11.621 Type 2 diabetes mellitus with foot ulcer (principal); M24.573 Contracture, unspecified ankle; I10 Essential (primary) hypertension; Z79.4 Long term (current) use of insulin; Z79.899 Other long term (current) drug therapy; G47.33 Obstructive sleep apnea (adult) (pediatric); E66.01 Morbid (severe) obesity due to excess calories; Z68.41 Body mass index [BMI] 40.0-44.9, adult
CPT/HCPCS: 82947; J0171; J0690; J2704; J3010; J7120

== ENCOUNTER 2019-08-23 20:47 | Emergency (ER) | payer OTHER ==
[~2019-08-23] VITALS: Ht 172.7 cm; Wt 117.0 kg
[2019-08-23 21:17] LABS: BASOPHILS ABSOLUTE AUTO 0.04 K/mm3 (0.00-0.23); BASOPHILS PERCENT AUTO 0 % (0-2); EOSINOPHILS ABSOLUTE AUTO 0.25 K/mm3 (0.00-0.68); EOSINOPHILS PERCENT AUTO 3 % (0-6); Hematocrit 40.5 % (37.0-53.0); Hemoglobin 13.7 g/dL (13.5-17.5); IMMATURE GRAN ABSOLUTE AUTO 0.06 K/mm3 (0.00-0.10); IMMATURE GRAN PERCENT AUTO 1 % (0-1); LYMPHOCYTES ABSOLUTE AUTO 2.38 K/mm3 (0.84-5.20); LYMPHOCYTES PERCENT AUTO 24 % (21-46); MONOCYTES ABSOLUTE AUTO 0.87 K/mm3 (0.16-1.47); MONOCYTES PERCENT AUTO 9 % (4-13); Mean Corpuscular HGB 29.4 pg (26.0-34.0); Mean Corpuscular HGB Conc 33.8 g/dL (31.5-36.5); Mean Corpuscular Volume 87 fL (80-100); Mean Platelet Volume 10.8 fL (9.1-12.4); NEUTROPHILS ABSOLUTE AUTO 6.21 K/mm3 (1.96-9.15); NEUTROPHILS PERCENT AUTO 63 % (41-73); Platelet Count 308 K/mm3 (150-400); RDW Coefficient Variation 13.6 % (11.7-14.2); RDW Standard Deviation 42.5 fL (35.1-46.3); Red Blood Cell Count 4.66 M/mm3 (4.30-5.90); White Blood Cell Count 9.81 K/mm3 (4.00-11.30)
[2019-08-23 21:32] LABS: Alanine Aminotransfer (ALT/SGP 62 U/L (12-78); Albumin, Blood 3.4 g/dL (3.4-5.0); Albumin/Globulin Ratio 0.8 (0.8-1.8); Alk Phos 84 U/L (50-136); Anion Gap 14 mmol/L (6-16); Aspartate Aminotrans (AST/SGOT 20 U/L (12-37); Bilirubin, Total 0.4 mg/dL (0.1-1.0); Blood Urea Nitrogen 20 mg/dL (8-24); Bun/Creatinine Ratio 29.3 (12.0-20.0); CO2, Blood 21 mmol/L (21-32); Calcium, Blood 8.8 mg/dL (8.5-10.1); Chloride, Blood 99 mmol/L (98-108); Creatinine, Blood 0.68 mg/dL (0.60-1.20); Glomerular Filtration Rate >60 (60-); Glucose, Blood 239 mg/dL (70-99); Potassium, Blood 3.4 mmol/L (3.5-5.5); Sodium, Blood 134 mmol/L (136-145); Total Protein, Blood 7.4 g/dL (6.4-8.2); Troponin I <0.015 ng/mL (0.000-0.040)
[2019-08-24] MEDS ORDERED: Protonix40 MG PO (00:31)
[2019-08-24] MEDS ORDERED: BENZ100A PO (00:34)
== END 2019-08-24 00:58 | disposition home or self-care (01) ==
LOC: ER 20:47
PROVIDERS: Emergency Medicine
DX: J20.9 Acute bronchitis, unspecified (principal); K21.9 Gastro-esophageal reflux disease without esophagitis; E11.9 Type 2 diabetes mellitus without complications; I10 Essential (primary) hypertension; E78.00 Pure hypercholesterolemia, unspecified; Z91.048 Other nonmedicinal substance allergy status; Z91.040 Latex allergy status; Z79.899 Other long term (current) drug therapy; Z79.4 Long term (current) use of insulin
CPT/HCPCS: 36415; 71046; 71260; 80053; 83880; 84484; 85025; 85379; 93005; 93010; 99285-25; Q9967

== ENCOUNTER 2019-09-27 10:13 | Emergency (ER) | payer OTHER ==
[~2019-09-27] VITALS: Ht 172.7 cm; Wt 107.0 kg
[~2019-09-27 10:13] MED LIST changes: +BENZ100A PO; +Protonix40 MG PO
[2019-09-27] MEDS ORDERED: Keflex500 MG PO (12:14)
[2019-09-27] MEDS ORDERED: Bactrim Ds Tab1 EACH PO (12:14)
== END 2019-09-27 12:20 | disposition home or self-care (01) ==
LOC: ER 10:13
DX: L02.811 Cutaneous abscess of head [any part, except face] (principal); L03.811 Cellulitis of head [any part, except face]; Z91.048 Other nonmedicinal substance allergy status; Z91.040 Latex allergy status; Z79.899 Other long term (current) drug therapy; Z79.4 Long term (current) use of insulin; E11.9 Type 2 diabetes mellitus without complications; E78.00 Pure hypercholesterolemia, unspecified; I10 Essential (primary) hypertension; K21.9 Gastro-esophageal reflux disease without esophagitis
CPT/HCPCS: 99282

== ENCOUNTER 2019-11-06 23:10 | Emergency (ER) | payer OTHER ==
[~2019-11-06] VITALS: Ht 172.7 cm; Wt 136.1 kg
[~2019-11-06 23:10] MED LIST changes: +Keflex500 MG PO
== END 2019-11-07 01:00 | disposition home or self-care (01) ==
LOC: ER 23:10
DX: F41.9 Anxiety disorder, unspecified (principal); J06.9 Acute upper respiratory infection, unspecified; Z91.040 Latex allergy status; Z91.048 Other nonmedicinal substance allergy status; Z79.899 Other long term (current) drug therapy; Z79.4 Long term (current) use of insulin; E11.9 Type 2 diabetes mellitus without complications; I10 Essential (primary) hypertension; K21.9 Gastro-esophageal reflux disease without esophagitis; F17.220 Nicotine dependence, chewing tobacco, uncomplicated
CPT/HCPCS: 71046; 99283-25

== ENCOUNTER 2019-11-12 23:56 | Emergency (ER) | payer OTHER ==
[~2019-11-12] VITALS: Ht 172.7 cm; Wt 120.2 kg
[2019-11-13] MEDS ORDERED: Janumet 50-1,01 EACH PO (00:41)
[2019-11-13] MEDS ORDERED: ALBU90OI INH (01:44)
[2019-11-13] MEDS ORDERED: Pseudoephedrine30 MG PO (01:44)
== END 2019-11-13 01:52 | disposition home or self-care (01) ==
LOC: ER 23:56
DX: J40 Bronchitis, not specified as acute or chronic (principal); J34.89 Other specified disorders of nose and nasal sinuses; Z91.048 Other nonmedicinal substance allergy status; Z91.040 Latex allergy status; Z79.4 Long term (current) use of insulin; Z79.899 Other long term (current) drug therapy; E11.9 Type 2 diabetes mellitus without complications; I10 Essential (primary) hypertension; K21.9 Gastro-esophageal reflux disease without esophagitis; F17.220 Nicotine dependence, chewing tobacco, uncomplicated
CPT/HCPCS: 71046; 99283-25

== ENCOUNTER 2019-11-23 18:06 | Observation (INO) | payer OTHER ==
[~2019-11-23] VITALS: Ht 172.7 cm; Wt 136.1 kg
[~2019-11-23 18:06] MED LIST changes: -INSULANPEN; +INSULANPEN SC; +Janumet 50-1,01 EACH PO; +Pseudoephedrine30 MG PO
[2019-11-23 19:22] LABS: BASOPHILS ABSOLUTE AUTO 0.03 K/mm3 (0.00-0.23); BASOPHILS PERCENT AUTO 0 % (0-2); EOSINOPHILS PERCENT AUTO 1 % (0-6); Hematocrit 40.9 % (37.0-53.0); IMMATURE GRAN ABSOLUTE AUTO 0.09 K/mm3 (0.00-0.10); IMMATURE GRAN PERCENT AUTO 1 % (0-1); LYMPHOCYTES ABSOLUTE AUTO 1.55 K/mm3 (0.84-5.20); LYMPHOCYTES PERCENT AUTO 17 % (21-46); MONOCYTES ABSOLUTE AUTO 0.78 K/mm3 (0.16-1.47); MONOCYTES PERCENT AUTO 9 % (4-13); Mean Corpuscular HGB 29.5 pg (26.0-34.0); Mean Corpuscular HGB Conc 34.2 g/dL (31.5-36.5); Mean Corpuscular Volume 86 fL (80-100); Mean Platelet Volume 10.1 fL (9.1-12.4); NEUTROPHILS PERCENT AUTO 72 % (41-73); Platelet Count 290 K/mm3 (150-400); RDW Coefficient Variation 14.2 % (11.7-14.2); RDW Standard Deviation 44.5 fL (35.1-46.3); Red Blood Cell Count 4.75 M/mm3 (4.30-5.90); White Blood Cell Count 9.15 K/mm3 (4.00-11.30)
[2019-11-23 19:44] LABS: Alanine Aminotransfer (ALT/SGP 75 U/L (12-78); Albumin, Blood 3.8 g/dL (3.4-5.0); Alk Phos 71 U/L (50-136); Anion Gap 15 mmol/L (6-16); Aspartate Aminotrans (AST/SGOT 38 U/L (12-37); Bilirubin, Total 0.7 mg/dL (0.1-1.0); Blood Urea Nitrogen 17 mg/dL (8-24); Bun/Creatinine Ratio 16.8 (12.0-20.0); CO2, Blood 19 mmol/L (21-32); Calcium, Blood 8.6 mg/dL (8.5-10.1); Chloride, Blood 90 mmol/L (98-108); Creatinine, Blood 1.01 mg/dL (0.60-1.20); Globulin, Blood 3.8 g/dL (2.2-4.0); Glomerular Filtration Rate >60 (60-); Glucose, Blood 51 mg/dL (70-99); Potassium, Blood 3.5 mmol/L (3.5-5.5); Sodium, Blood 124 mmol/L (136-145); Total Protein, Blood 7.6 g/dL (6.4-8.2); Troponin I <0.015 ng/mL (0.000-0.040)
[2019-11-24] MEDS ORDERED: POTCHL20ER PO (12:02)
[2019-11-24] MEDS ORDERED: FAMO20 PO (12:03)
[2019-11-24] MEDS ORDERED: ZESTORETIC 20-121 EA PO (12:04)
[2019-11-24] MEDS ORDERED: FURO80 PO (12:05)
[2019-11-24] MEDS ORDERED: PANT40 PO (12:09)
== END 2019-11-24 10:59 | disposition home or self-care (01) ==
LOC: ER 18:06 → ERHOLD 18:07
PROVIDERS: Physician Assistant; ADMIT Internal Medicine
DX: E11.649 Type 2 diabetes mellitus with hypoglycemia without coma (principal); I10 Essential (primary) hypertension; E66.01 Morbid (severe) obesity due to excess calories; F17.220 Nicotine dependence, chewing tobacco, uncomplicated; E78.5 Hyperlipidemia, unspecified; Z91.040 Latex allergy status; Z88.8 Allergy status to other drugs, medicaments and biological substances; Z79.4 Long term (current) use of insulin; Z68.42 Body mass index [BMI] 45.0-49.9, adult
CPT/HCPCS: 36415; 71260; 80053; 82947; 83880; 84484; 85025; 93005; 93010; 93971; 94640; 96361; 96374; 99285-25; G0378; J7042; Q9967

== ENCOUNTER 2020-03-20 23:53 | Emergency (ER) | payer OTHER ==
[~2020-03-20] VITALS: Ht 172.7 cm; Wt 113.4 kg
[~2020-03-20 23:53] MED LIST changes: +FAMO20 PO; +PANT40 PO
== END 2020-03-21 00:16 | disposition home or self-care (01) ==
LOC: ER 23:53
DX: N39.0 Urinary tract infection, site not specified (principal); M79.671 Pain in right foot; Z91.048 Other nonmedicinal substance allergy status; Z91.040 Latex allergy status; Z79.4 Long term (current) use of insulin; Z79.899 Other long term (current) drug therapy; E11.9 Type 2 diabetes mellitus without complications; E78.00 Pure hypercholesterolemia, unspecified; I10 Essential (primary) hypertension
CPT/HCPCS: 99283

== ENCOUNTER 2020-09-14 18:30 | Emergency (ER) | payer OTHER ==
[~2020-09-14] VITALS: Ht 172.7 cm; Wt 127.0 kg
== END 2020-09-14 19:57 | disposition home or self-care (01) ==
LOC: ER 18:30
DX: S43.401A Unspecified sprain of right shoulder joint, initial encounter (principal); E11.9 Type 2 diabetes mellitus without complications; E78.00 Pure hypercholesterolemia, unspecified; I10 Essential (primary) hypertension; Z91.09 Other allergy status, other than to drugs and biological substances; Z91.040 Latex allergy status; Z79.899 Other long term (current) drug therapy; Z79.4 Long term (current) use of insulin; W01.0XXA Fall on same level from slipping, tripping and stumbling without subsequent striking against object, initial encounter
CPT/HCPCS: 73030; 99283-25

== ENCOUNTER 2020-10-07 08:20 | Emergency (ER) | payer OTHER ==
[~2020-10-07] VITALS: Ht 172.7 cm; Wt 136.1 kg
[~2020-10-07 08:20] MED LIST changes: +ATOR40TA PO; +INSULANI SC; -INSULANPEN SC
[2020-10-07] MEDS ORDERED: CYCL10 PO (10:11)
[2020-10-07] MEDS ORDERED: HYDR1TAB94 PO (10:11)
== END 2020-10-07 11:41 | disposition home or self-care (01) ==
LOC: ER 08:20
DX: M54.32 Sciatica, left side (principal); E78.00 Pure hypercholesterolemia, unspecified; I10 Essential (primary) hypertension; E11.9 Type 2 diabetes mellitus without complications; Z79.4 Long term (current) use of insulin; Z79.899 Other long term (current) drug therapy; Z91.09 Other allergy status, other than to drugs and biological substances; Z91.040 Latex allergy status
CPT/HCPCS: 99283; A9270

== ENCOUNTER 2020-10-16 09:33 | Emergency (ER) | payer OTHER ==
[~2020-10-16] VITALS: Ht 172.7 cm; Wt 113.4 kg
[~2020-10-16 09:33] MED LIST changes: +CYCL10 PO
[2020-10-16 10:35] LABS: BASOPHILS ABSOLUTE AUTO 0.03 K/mm3 (0.00-0.23); BASOPHILS PERCENT AUTO 0 % (0-2); EOSINOPHILS ABSOLUTE AUTO 0.08 K/mm3 (0.00-0.68); EOSINOPHILS PERCENT AUTO 1 % (0-6); Hemoglobin 15.4 g/dL (13.5-17.5); IMMATURE GRAN ABSOLUTE AUTO 0.04 K/mm3 (0.00-0.10); IMMATURE GRAN PERCENT AUTO 0 % (0-1); LYMPHOCYTES ABSOLUTE AUTO 1.37 K/mm3 (0.84-5.20); LYMPHOCYTES PERCENT AUTO 14 % (21-46); MONOCYTES PERCENT AUTO 12 % (4-13); Mean Corpuscular HGB 30.1 pg (26.0-34.0); Mean Corpuscular HGB Conc 33.5 g/dL (31.5-36.5); Mean Corpuscular Volume 90 fL (80-100); Mean Platelet Volume 10.7 fL (9.1-12.4); NEUTROPHILS ABSOLUTE AUTO 7.04 K/mm3 (1.96-9.15); NEUTROPHILS PERCENT AUTO 72 % (41-73); Platelet Count 277 K/mm3 (150-400); RDW Coefficient Variation 13.6 % (11.7-14.2); RDW Standard Deviation 44.5 fL (35.1-46.3); Red Blood Cell Count 5.12 M/mm3 (4.30-5.90); White Blood Cell Count 9.76 K/mm3 (4.00-11.30)
[2020-10-16 10:49] LABS: Alanine Aminotransfer (ALT/SGP 72 U/L (12-78); Albumin, Blood 3.4 g/dL (3.4-5.0); Albumin/Globulin Ratio 0.8 (0.8-1.8); Alk Phos 85 U/L (50-136); Anion Gap 14 mmol/L (6-16); Aspartate Aminotrans (AST/SGOT 28 U/L (12-37); Bilirubin, Total 0.7 mg/dL (0.1-1.0); Blood Urea Nitrogen 24 mg/dL (8-24); Bun/Creatinine Ratio 25.7 (12.0-20.0); CO2, Blood 21 mmol/L (21-32); Calcium, Blood 9.8 mg/dL (8.5-10.1); Chloride, Blood 99 mmol/L (98-108); Creatinine, Blood 0.93 mg/dL (0.60-1.20); Globulin, Blood 4.4 g/dL (2.2-4.0); Glomerular Filtration Rate >60 (60-); Glucose, Blood 182 mg/dL (70-99); Sodium, Blood 134 mmol/L (136-145); Total Protein, Blood 7.8 g/dL (6.4-8.2)
[2020-10-16] MEDS ORDERED: ACETAMINOPHEN500 MG PO (11:37)
== END 2020-10-16 11:51 | disposition home or self-care (01) ==
LOC: ER 09:33
PROVIDERS: Physician Assistant
DX: M79.605 Pain in left leg (principal); E11.9 Type 2 diabetes mellitus without complications; E78.00 Pure hypercholesterolemia, unspecified; I10 Essential (primary) hypertension; F17.220 Nicotine dependence, chewing tobacco, uncomplicated; Z91.09 Other allergy status, other than to drugs and biological substances; Z91.040 Latex allergy status; Z79.4 Long term (current) use of insulin; Z79.899 Other long term (current) drug therapy
CPT/HCPCS: 36415; 80053; 85025; 93971; 99284-25

== ENCOUNTER 2020-11-15 13:53 | Emergency (ER) | payer OTHER ==
[~2020-11-15] VITALS: Ht 172.7 cm; Wt 136.1 kg
[~2020-11-15 13:53] MED LIST changes: +ACETAMINOPHEN500 MG PO
[2020-11-15 14:29] LABS: BASOPHILS ABSOLUTE AUTO 0.03 K/mm3 (0.00-0.23); BASOPHILS PERCENT AUTO 0 % (0-2); EOSINOPHILS ABSOLUTE AUTO 0.15 K/mm3 (0.00-0.68); EOSINOPHILS PERCENT AUTO 2 % (0-6); Hematocrit 40.4 % (37.0-53.0); Hemoglobin 13.5 g/dL (13.5-17.5); IMMATURE GRAN ABSOLUTE AUTO 0.04 K/mm3 (0.00-0.10); IMMATURE GRAN PERCENT AUTO 1 % (0-1); LYMPHOCYTES ABSOLUTE AUTO 1.73 K/mm3 (0.84-5.20); LYMPHOCYTES PERCENT AUTO 25 % (21-46); MONOCYTES ABSOLUTE AUTO 0.63 K/mm3 (0.16-1.47); MONOCYTES PERCENT AUTO 9 % (4-13); Mean Corpuscular HGB 29.9 pg (26.0-34.0); Mean Corpuscular HGB Conc 33.4 g/dL (31.5-36.5); Mean Corpuscular Volume 90 fL (80-100); Mean Platelet Volume 9.7 fL (9.1-12.4); NEUTROPHILS ABSOLUTE AUTO 4.41 K/mm3 (1.96-9.15); NEUTROPHILS PERCENT AUTO 63 % (41-73); Platelet Count 280 K/mm3 (150-400); RDW Standard Deviation 45.7 fL (35.1-46.3); Red Blood Cell Count 4.51 M/mm3 (4.30-5.90); White Blood Cell Count 6.99 K/mm3 (4.00-11.30)
[2020-11-15 14:57] LABS: Alanine Aminotransfer (ALT/SGP 89 U/L (12-78); Albumin/Globulin Ratio 0.7 (0.8-1.8); Alk Phos 68 U/L (50-136); Anion Gap 13 mmol/L (6-16); Aspartate Aminotrans (AST/SGOT 54 U/L (12-37); Bilirubin, Total 0.5 mg/dL (0.1-1.0); Blood Urea Nitrogen 15 mg/dL (8-24); Bun/Creatinine Ratio 19.5 (12.0-20.0); CO2, Blood 22 mmol/L (21-32); Chloride, Blood 101 mmol/L (98-108); Creatinine, Blood 0.77 mg/dL (0.60-1.20); Globulin, Blood 4.1 g/dL (2.2-4.0); Glomerular Filtration Rate >60 (60-); Glucose, Blood 122 mg/dL (70-99); Potassium, Blood 4.2 mmol/L (3.5-5.5); Sodium, Blood 136 mmol/L (136-145); Total Protein, Blood 7.1 g/dL (6.4-8.2); Troponin I <0.015 ng/mL (0.000-0.040)
[2020-11-15] MEDS ORDERED: PROAIR RESPICL90 MCG INH (16:51)
== END 2020-11-15 17:10 | disposition home or self-care (01) ==
LOC: ER 13:53
PROVIDERS: Physician Assistant
DX: J40 Bronchitis, not specified as acute or chronic (principal); R06.02 Shortness of breath; E11.9 Type 2 diabetes mellitus without complications; E78.5 Hyperlipidemia, unspecified; I10 Essential (primary) hypertension; Z79.4 Long term (current) use of insulin; Z91.09 Other allergy status, other than to drugs and biological substances; Z79.899 Other long term (current) drug therapy; Z91.040 Latex allergy status
CPT/HCPCS: 36415; 71045; 80053; 84484; 85025; 93005; 93010; 94640; 99285-25

== ENCOUNTER 2021-01-05 05:28 | Emergency (ER) | payer OTHER ==
[~2021-01-05] VITALS: Ht 172.7 cm; Wt 120.2 kg
[~2021-01-05 05:28] MED LIST changes: -ATOR40TA PO; -INSULANI SC; +INSULANPEN SC; +PROAIR RESPICL90 MCG INH
== END 2021-01-05 09:10 | disposition home or self-care (01) ==
LOC: ER 05:28
DX: Z48.03 Encounter for change or removal of drains (principal); M79.671 Pain in right foot; E11.9 Type 2 diabetes mellitus without complications; I10 Essential (primary) hypertension; E78.00 Pure hypercholesterolemia, unspecified; F17.220 Nicotine dependence, chewing tobacco, uncomplicated
CPT/HCPCS: 99283; A9270

== ENCOUNTER 2021-01-17 10:30 | Inpatient (IN) | payer OTHER, MEDICARE ==
[~2021-01-17] VITALS: Ht 172.7 cm; Wt 130.5 kg
[~2021-01-17 10:30] MED LIST changes: +ATOR40TA PO; +INSULANI SC; -INSULANPEN SC
[2021-01-17 11:25] LABS: Alanine Aminotransfer (ALT/SGP 22 U/L (12-78); Albumin, Blood 2.9 g/dL (3.4-5.0); Albumin/Globulin Ratio 0.5 (0.8-1.8); Alk Phos 81 U/L (50-136); Anion Gap 13 mmol/L (6-16); Aspartate Aminotrans (AST/SGOT 13 U/L (12-37); Bilirubin, Total 1.2 mg/dL (0.1-1.0); Blood Urea Nitrogen 17 mg/dL (8-24); CO2, Blood 22 mmol/L (21-32); Calcium, Blood 9.2 mg/dL (8.5-10.1); Chloride, Blood 93 mmol/L (98-108); Globulin, Blood 5.3 g/dL (2.2-4.0); Glomerular Filtration Rate >60 (60-); Glucose, Blood 166 mg/dL (70-99); Potassium, Blood 3.9 mmol/L (3.5-5.5); Sodium, Blood 128 mmol/L (136-145); Total Protein, Blood 8.2 g/dL (6.4-8.2)
[2021-01-17 12:21] LABS: International Normalized Ratio 1.04; Prothrombin Time Results 11.2 Sec (9.7-11.5)
[2021-01-17 12:27] LABS: Influenza A, PCR NEGATIVE (NEGATIVE); Influenza B, PCR NEGATIVE (NEGATIVE); Resp Syncytial Virus, PCR NEGATIVE (NEGATIVE); SARS-Cov-2 (COVID-19) PCR, MMC NEGATIVE (NEGATIVE)
[2021-01-17] MEDS ORDERED: TRULICITY1.5 MG/0.1 SC (13:06)
[2021-01-17 13:07] LABS: BASOPHILS ABSOLUTE AUTO 0.04 K/mm3 (0.00-0.23); BASOPHILS PERCENT AUTO 0 % (0-2); EOSINOPHILS ABSOLUTE AUTO 0.06 K/mm3 (0.00-0.68); EOSINOPHILS PERCENT AUTO 0 % (0-6); Hematocrit 42.9 % (37.0-53.0); Hemoglobin 14.6 g/dL (13.5-17.5); IMMATURE GRAN PERCENT AUTO 1 % (0-1); LYMPHOCYTES ABSOLUTE AUTO 1.16 K/mm3 (0.84-5.20); LYMPHOCYTES PERCENT AUTO 7 % (21-46); MONOCYTES ABSOLUTE AUTO 1.52 K/mm3 (0.16-1.47); MONOCYTES PERCENT AUTO 10 % (4-13); Mean Corpuscular HGB 30.3 pg (26.0-34.0); Mean Corpuscular Volume 89 fL (80-100); NEUTROPHILS PERCENT AUTO 82 % (41-73); RDW Coefficient Variation 13.2 % (11.7-14.2); RDW Standard Deviation 43.1 fL (35.1-46.3); Red Blood Cell Count 4.82 M/mm3 (4.30-5.90); White Blood Cell Count 15.58 K/mm3 (4.00-11.30)
[2021-01-17] MEDS ORDERED: GLIP10ER PO (13:07)
[2021-01-17] MEDS ORDERED: JARDIANCE25 MG PO (13:07)
[2021-01-17 13:08] LABS: Mean Platelet Volume 10.7 fL (9.1-12.4)
[2021-01-17] MEDS ORDERED: JANUMET 50-5001 EACH PO (13:08)
[2021-01-17] MEDS ORDERED: MOBIC15 MG PO (13:08)
[2021-01-17 13:27] LABS: Source, Urine Catheter
[2021-01-17 13:28] LABS: Platelet Count 382 K/mm3 (150-400)
[2021-01-17 13:34] LABS: Appearance, Urine Clear (Clear); Bilirubin, Urine Neg (Neg); Blood, Urine Neg (Neg); Color, Urine Yellow (P-Yellow); Glucose Qualitative, Urine 4+ (Neg); Ketones, Urine 3+ (Neg); Leukocyte Esterase, Urine Neg (Neg); Nitrite, Urine Neg (Neg); Protein, Urine Neg (Neg); Urobilinogen, Urine NORM (Normal)
[2021-01-17] MEDS ORDERED: ALBU90OI INH (13:57)
--- NOTE | 2021-01-17 19:07 | NUR ---
ADMISSION AND SHIFT SUMMARY PT ARRIVED TO UNIT @ APPROX 1630 VIA WHEELCHAIR. PT WAS ABLE TO STAND AND TRANSFER TO BED c MINIMAL ASSISTANCE. FLUID BOLUS WAS STARTED UPON ARRIVAL TO UNIT, IV ABX AND CONTINUOUS FLUID INFUSION STARTED AFTER BOLUS WAS COMPLETED. TELE MONITOR IN PLACE. PT IS SINUS TACHYCARDIC, WAS TACHYCARDIC IN THE ED. A&Ox4, RA, NPO AFTER MIDNIGHT FOR POSSIBLE SURGERY TOMORROW. DENIES ANY DISTRESS. PODIATRY STILL NEEDING TO BE CONSULTED, WILL PASS ONTO ONCOMING RN. DRESSING IN PLACE ON R FOOT, C/D/I. DRESSING CHANGED PRIOR TO ARRIVAL TO UNIT. REPORTS PAIN PRIMARILY WITH MOVEMENT OF FOOT. TREATED PER EMAR x1. BED ALARM ON, CALL LIGHT WITHIN REACH. PT IS CURRENTLY SLEEPING. ADMISSION COMPLETED.
--- NOTE | 2021-01-18 01:15 | NUR ---
ATEMPTED TO CALL CONSULT FOR DR. NIX, ANSWERING SERVICE NUMBER NO LONGER IN SERVICE. MESSAGE LEFT ON OFFICE ANSWERING MACHINE TO CALL FOR NAME OF PATIENT. wILL HAVE DAY SHIFT FOLLOW UP NEEDED.
[2021-01-18 05:20] LABS: BASOPHILS ABSOLUTE AUTO 0.05 K/mm3 (0.00-0.23); BASOPHILS PERCENT AUTO 0 % (0-2); EOSINOPHILS ABSOLUTE AUTO 0.02 K/mm3 (0.00-0.68); EOSINOPHILS PERCENT AUTO 0 % (0-6); Hematocrit 37.6 % (37.0-53.0); Hemoglobin 12.9 g/dL (13.5-17.5); IMMATURE GRAN ABSOLUTE AUTO 0.09 K/mm3 (0.00-0.10); IMMATURE GRAN PERCENT AUTO 1 % (0-1); LYMPHOCYTES PERCENT AUTO 6 % (21-46); MONOCYTES ABSOLUTE AUTO 1.42 K/mm3 (0.16-1.47); MONOCYTES PERCENT AUTO 9 % (4-13); Mean Corpuscular HGB 30.6 pg (26.0-34.0); Mean Corpuscular HGB Conc 34.3 g/dL (31.5-36.5); Mean Corpuscular Volume 89 fL (80-100); Mean Platelet Volume 10.2 fL (9.1-12.4); NEUTROPHILS ABSOLUTE AUTO 13.03 K/mm3 (1.96-9.15); NEUTROPHILS PERCENT AUTO 84 % (41-73); Platelet Count 374 K/mm3 (150-400); RDW Coefficient Variation 13.3 % (11.7-14.2); RDW Standard Deviation 43.8 fL (35.1-46.3); Red Blood Cell Count 4.22 M/mm3 (4.30-5.90); White Blood Cell Count 15.61 K/mm3 (4.00-11.30)
--- NOTE | 2021-01-18 05:22 | NUR ---
Rn summary: Patient is a very pleasant delightful patient. He has been medicated x2 with ultram for rt foot burning pain. Patient did walk with walker to the BR at beginning of the shift using a walker and 2 assist. Also used urinal at bedside. Patient receiving IV fluids and ABX as ordered. Plan is for possible I/D of foot by Dr. Trujillo. Unable to reach answering service, will call consult on day shift. Uses call light appropriately. Will continue to monitor.
[2021-01-18 05:52] LABS: Alanine Aminotransfer (ALT/SGP 19 U/L (12-78); Albumin, Blood 2.5 g/dL (3.4-5.0); Albumin/Globulin Ratio 0.5 (0.8-1.8); Alk Phos 75 U/L (50-136); Anion Gap 12 mmol/L (6-16); Aspartate Aminotrans (AST/SGOT 18 U/L (12-37); Bilirubin, Total 0.9 mg/dL (0.1-1.0); Blood Urea Nitrogen 16 mg/dL (8-24); Bun/Creatinine Ratio 20.7 (12.0-20.0); CO2, Blood 21 mmol/L (21-32); Calcium, Blood 8.6 mg/dL (8.5-10.1); Chloride, Blood 95 mmol/L (98-108); Creatinine, Blood 0.77 mg/dL (0.60-1.20); Globulin, Blood 4.8 g/dL (2.2-4.0); Glomerular Filtration Rate >60 (60-); Glucose, Blood 121 mg/dL (70-99); Potassium, Blood 3.3 mmol/L (3.5-5.5); Sodium, Blood 128 mmol/L (136-145); Total Protein, Blood 7.3 g/dL (6.4-8.2)
--- NOTE | 2021-01-18 18:16 | NUR ---
Shift Summary A/Ox4, patient has been extremely pleasant to have. Up with SBA and FWW to bathroom. Consent to photo signed and photos taken of R foot ulcer prior to I&D. Medicated x 1 with good effect. Had I/D with Dr. Stanton this afternoon, arrived back at approx. 1800, slide transfer. Denies pain post op. Gauze and al wrap to R foot. R foot elevated above hip level. NS @ 100. Sitting in bed having dinner. Caregiver Michelle notified. Post-op vitals started. WCTM.
[2021-01-18 19:41] LABS: Vancomycin, Trough 15.3 ug/mL (5.0-10.0)
--- NOTE | 2021-01-19 04:56 | NUR ---
CALL TO HOSPITALIST / HR 160-180'S RECEIVED CALL FROM TELE MONITOR. PT HR 160-170'S SINUS W/PAC'S. CALL TO DR. WADDELL. RECEIVED OT ORDER FOR IV LOPRESSOR. PT DENIES CHEST PAIN, SOB. STATES HE FEELS JUST FINE.
[2021-01-19 05:24] LABS: Hematocrit 35.4 % (37.0-53.0); Hemoglobin 11.9 g/dL (13.5-17.5); Mean Corpuscular HGB 30.4 pg (26.0-34.0); Mean Corpuscular HGB Conc 33.6 g/dL (31.5-36.5); Mean Corpuscular Volume 90 fL (80-100); Mean Platelet Volume 10.2 fL (9.1-12.4); Platelet Count 365 K/mm3 (150-400); RDW Coefficient Variation 13.5 % (11.7-14.2); RDW Standard Deviation 44.5 fL (35.1-46.3); Red Blood Cell Count 3.92 M/mm3 (4.30-5.90); White Blood Cell Count 11.91 K/mm3 (4.00-11.30)
--- NOTE | 2021-01-19 05:51 | NUR ---
SHIFT SUMMARY: BP STABLE. TACHCARDIC. HR NOW 110'S PER TELE DATABASE MANAGER AFTER OT IV LOPRESSOR ADMINISTERED. SINUS TACHY W/ MANY PAC'S PER TELE MONITOR. PT DENIES ALL PAIN. DENIES CHEST PAIN. APPEARS SOB BUT STATES HE DOES NOT FEEL SOB. 02 SAT 95% ON RA. LSCTA. NO COUGHING. PT IS CURRENTLY SLEEPING. DRESSING TO RLE CDI. SMALL TO MODERATE AMT OF STRIKE THROUGH BLEEDING OBSERVED ON BANDAGE- OUTLINED AND TIME NOTED. PT INSTRUCTED TO NOT STAND ON FOOT TONIGHT. BLOOD HAS NOT SPREAD BEYOND MARKED BORDER AT THIS TIME. MEDICATED FOR PAIN X1 AT HS AND HAS REMAINED PAIN FREE FOR THE REST OF THE NIGHT. IV FLUIDS INFUSING PER ORDERS. WCTM.
[2021-01-19 05:53] LABS: Alanine Aminotransfer (ALT/SGP 16 U/L (12-78); Albumin, Blood 2.3 g/dL (3.4-5.0); Albumin/Globulin Ratio 0.5 (0.8-1.8); Alk Phos 69 U/L (50-136); Anion Gap 12 mmol/L (6-16); Aspartate Aminotrans (AST/SGOT 12 U/L (12-37); Bilirubin, Total 0.7 mg/dL (0.1-1.0); Blood Urea Nitrogen 15 mg/dL (8-24); Bun/Creatinine Ratio 19.8 (12.0-20.0); CO2, Blood 19 mmol/L (21-32); Calcium, Blood 8.5 mg/dL (8.5-10.1); Chloride, Blood 96 mmol/L (98-108); Creatinine, Blood 0.76 mg/dL (0.60-1.20); Globulin, Blood 4.9 g/dL (2.2-4.0); Glomerular Filtration Rate >60 (60-); Glucose, Blood 114 mg/dL (70-99); Potassium, Blood 3.8 mmol/L (3.5-5.5); Sodium, Blood 127 mmol/L (136-145); Total Protein, Blood 7.2 g/dL (6.4-8.2)
--- NOTE | 2021-01-19 10:40 | NUR ---
DIANNE NORMAL SALINE PATIENT TOLERATING PO WELL, DRINKING FLUIDS. PER DR. HOLMAN, DC NS.
--- NOTE | 2021-01-19 16:54 | NUR ---
WOUND PHOTO Photo and measurements were taken of wound prior to placing wound vac on. Photo could not be printed d/t printing issues. Size: 3 cm x 2 cm, Depth: 2 cm. Wound has exposed tissue within the wound bed. Edges are callused. No apparent odor. Patient denied pain during wound cleansing and vac placement. Suction to 120 mmHg, seal is intact, black foam used.
--- NOTE | 2021-01-19 19:25 | NUR ---
Shift Summary Wound vac placed and maintaining continuous suction @ 120 mmHg. Tolerating NPWT well. Michelle (caregiver) updated. Please see previous note on wound picture for measurements. Boot to R leg for all ambulation, weight bearing as tolerated. Tele: ST 100 PVCs. No acute changes, report given to oncoming RN.
[2021-01-19 19:29] LABS: Vancomycin, Trough 18.4 ug/mL (5.0-10.0)
[2021-01-20 05:22] LABS: Hematocrit 34.9 % (37.0-53.0); Hemoglobin 11.8 g/dL (13.5-17.5); Mean Corpuscular HGB Conc 33.8 g/dL (31.5-36.5); Mean Corpuscular Volume 89 fL (80-100); Mean Platelet Volume 10.2 fL (9.1-12.4); Platelet Count 359 K/mm3 (150-400); RDW Coefficient Variation 13.4 % (11.7-14.2); RDW Standard Deviation 43.8 fL (35.1-46.3); Red Blood Cell Count 3.93 M/mm3 (4.30-5.90); White Blood Cell Count 11.99 K/mm3 (4.00-11.30)
[2021-01-20 06:05] LABS: Alanine Aminotransfer (ALT/SGP 18 U/L (12-78); Albumin, Blood 2.3 g/dL (3.4-5.0); Albumin/Globulin Ratio 0.5 (0.8-1.8); Alk Phos 76 U/L (50-136); Anion Gap 11 mmol/L (6-16); Aspartate Aminotrans (AST/SGOT 19 U/L (12-37); Bilirubin, Total 0.7 mg/dL (0.1-1.0); Blood Urea Nitrogen 16 mg/dL (8-24); Bun/Creatinine Ratio 22.3 (12.0-20.0); CO2, Blood 19 mmol/L (21-32); Calcium, Blood 8.8 mg/dL (8.5-10.1); Chloride, Blood 96 mmol/L (98-108); Creatinine, Blood 0.72 mg/dL (0.60-1.20); Globulin, Blood 4.7 g/dL (2.2-4.0); Glomerular Filtration Rate >60 (60-); Glucose, Blood 160 mg/dL (70-99); Magnesium, Blood 2.1 mg/dL (1.6-2.4); Potassium, Blood 3.7 mmol/L (3.5-5.5); Sodium, Blood 126 mmol/L (136-145)
--- NOTE | 2021-01-20 06:08 | NUR ---
PT IS DEVELOPMENTALLY DELAYED, PLEASANT, NEW WOUNDVAC TO RIGHT FOOT, MEDICATED X1 FOR PAIN THIS SHIFT. TELE MONIOR. PT CONVERTED THIS SHIFT FROM SR TO AFIB, T/O DR CAMPOS FOR METOPROLOL 5MG X1 THEN A SECOND DOSE IN 30 MIN. PT WAS ASLEEP WHEN REPORT OF AFIB AND HR 130-160 REPORTED. WILL CONTINUE TO MONITOR AND REPORT TO ONCOMING SHIFT.
--- NOTE | 2021-01-20 18:32 | NUR ---
SHIFT SUMMARY PT A&OX4, ABLE TO MAKE NEEDS KNOWN. PLEASANT AND COOPERATIVE WITH CARE. PT MEDICATED FOR PAIN PER EMAR. DENIES CP / SOB N&V. PT CONT ON IV ABX, NO ASE NOTED. WOUND VAC TO R FOOT WOUND C/D/I. NO ISSUES WITH WOUND VAC NOTED. PT CALM AND COMFORTABLE IN ROOM THIS SHIFT, PT REQUIRES SBA WITH FWW. BED AT LOWEST POSITION. CALL LIGHT WITHIN REACH.
--- NOTE | 2021-01-20 19:00 | NUR ---
ASSUMED CARE RECEIVED REPORT FROM SKYE CHRISTIAN. PT RESTING, IN NO ACUTE DISTRESS. NO ACUTE NEEDS ASSESSED AT THIS TIME. CALL LIGHT, POSSESSIONS IN REACH.
[2021-01-21 05:13] LABS: Hematocrit 35.8 % (37.0-53.0); Hemoglobin 12.2 g/dL (13.5-17.5); Mean Corpuscular HGB 29.9 pg (26.0-34.0); Mean Corpuscular HGB Conc 34.1 g/dL (31.5-36.5); Mean Corpuscular Volume 88 fL (80-100); Mean Platelet Volume 9.9 fL (9.1-12.4); Platelet Count 367 K/mm3 (150-400); RDW Coefficient Variation 13.2 % (11.7-14.2); RDW Standard Deviation 42.8 fL (35.1-46.3); Red Blood Cell Count 4.08 M/mm3 (4.30-5.90); White Blood Cell Count 10.99 K/mm3 (4.00-11.30)
--- NOTE | 2021-01-21 05:29 | NUR ---
MILL HAND PLATE MILL SUMMARY PT RESTING, IN NO ACUTE DISTRESS. VS REVIEWED,WNL. PT HAS HAD NO ACUTE CHANGES IN CONDITION OVERNIGHT. HAS MAINTAINED NORMAL SINUS RHYTHM T/O NIGHT, NO EPISODES OF AFIB NOTED. SLEPT T/O. WOUND VAC REMAINS IN PLACE, DRSG C/D/I. DENIES NEEDS AT THIS TIME. CALL LIGHT, POSSESSIONS IN REACH, BED IN LOW POSITION. WILL REPORT OFF TO DAY RN.
[2021-01-21 05:48] LABS: Alanine Aminotransfer (ALT/SGP 20 U/L (12-78); Albumin, Blood 2.1 g/dL (3.4-5.0); Albumin/Globulin Ratio 0.4 (0.8-1.8); Alk Phos 74 U/L (50-136); Anion Gap 9 mmol/L (6-16); Aspartate Aminotrans (AST/SGOT 20 U/L (12-37); Bilirubin, Total 0.5 mg/dL (0.1-1.0); Blood Urea Nitrogen 13 mg/dL (8-24); Bun/Creatinine Ratio 20.9 (12.0-20.0); CO2, Blood 22 mmol/L (21-32); Calcium, Blood 8.8 mg/dL (8.5-10.1); Chloride, Blood 95 mmol/L (98-108); Creatinine, Blood 0.62 mg/dL (0.60-1.20); Globulin, Blood 4.9 g/dL (2.2-4.0); Glomerular Filtration Rate >60 (60-); Glucose, Blood 125 mg/dL (70-99); Potassium, Blood 3.7 mmol/L (3.5-5.5); Sodium, Blood 126 mmol/L (136-145)
[2021-01-21 05:51] LABS: C-REACTIVE PROTEIN, EXT RANGE >19.000 mg/dL (0.000-0.300)
--- NOTE | 2021-01-21 16:28 | NUR ---
SHIFT SUMMARY NO ACUTE CHANGES NOTE TO PT THIS SHIFT. PT A&OX4, ABLE TO MAKE NEEDS KNOWN, PLEASANT AND COOPERATIVE WITH CARE. PT MEDICATED FOR PAIN PER EMAR. NO C/O CP, SOB, OR N&V. WOUND VAC TO R FOOT IN PLACE, NO ISSUES NOTED TO DRESSING ON AA. PT CONTINUES ON IV ABX ORDERED, NO ASE NOTED. BED AT LOWEST POSITION. CALL LIGHT WITHIN REACH.
--- NOTE | 2021-01-21 19:00 | NUR ---
ASSUMED CARE RECEIVED REPORT FROM ANAHI Jauregiu RN. PT RESTING, IN NO ACUTE DISTRESS. NO ACUTE NEEDS ASSESSED AT THIS TIME, CALL LIGHT IN REACH
--- NOTE | 2021-01-22 03:49 | NUR ---
WEB CONTENT DEVELOPER SUMMARY PT ASLEEP, IN NO ACUTE DISTRESS. VS REVIEWED,WNL. WOUND VAC TO RT HEEL INTACT, DRSG C/D/I, SCANT AMOUNT OF SANGUINEOUS DRAINAGE NOTED. NO ACUTE CHANGES IN CONDITION TO REPORT OVERNIGHT, PAIN MANAGED WELL WITH SCHEDULED TORADOL. SLEPT THROUGHOUT NIGHT. NO ACUTE NEEDS ASSESSED AT THIS TIME. CALL LIGHT, POSSESSIONS IN REACH, BED IN LOW POSITION. WILL CONTINUE TO PROVIDE CARE UNTIL REPORT GIVEN TO ONCOMING RN.
[2021-01-22 05:57] LABS: BASOPHILS ABSOLUTE AUTO 0.03 K/mm3 (0.00-0.23); BASOPHILS PERCENT AUTO 0 % (0-2); EOSINOPHILS PERCENT AUTO 2 % (0-6); Hematocrit 35.9 % (37.0-53.0); Hemoglobin 12.2 g/dL (13.5-17.5); IMMATURE GRAN ABSOLUTE AUTO 0.16 K/mm3 (0.00-0.10); IMMATURE GRAN PERCENT AUTO 2 % (0-1); LYMPHOCYTES ABSOLUTE AUTO 1.43 K/mm3 (0.84-5.20); LYMPHOCYTES PERCENT AUTO 15 % (21-46); MONOCYTES ABSOLUTE AUTO 0.98 K/mm3 (0.16-1.47); MONOCYTES PERCENT AUTO 10 % (4-13); Mean Corpuscular Volume 88 fL (80-100); Mean Platelet Volume 10.1 fL (9.1-12.4); NEUTROPHILS ABSOLUTE AUTO 6.69 K/mm3 (1.96-9.15); NEUTROPHILS PERCENT AUTO 71 % (41-73); Platelet Count 441 K/mm3 (150-400); RDW Coefficient Variation 13.4 % (11.7-14.2); RDW Standard Deviation 43.1 fL (35.1-46.3); Red Blood Cell Count 4.07 M/mm3 (4.30-5.90); White Blood Cell Count 9.49 K/mm3 (4.00-11.30)
[2021-01-22 06:32] LABS: Alanine Aminotransfer (ALT/SGP 29 U/L (12-78); Albumin, Blood 2.1 g/dL (3.4-5.0); Albumin/Globulin Ratio 0.4 (0.8-1.8); Alk Phos 80 U/L (50-136); Anion Gap 10 mmol/L (6-16); Aspartate Aminotrans (AST/SGOT 30 U/L (12-37); Bilirubin, Total 0.4 mg/dL (0.1-1.0); Blood Urea Nitrogen 18 mg/dL (8-24); Bun/Creatinine Ratio 26.9 (12.0-20.0); CO2, Blood 23 mmol/L (21-32); Calcium, Blood 8.9 mg/dL (8.5-10.1); Chloride, Blood 97 mmol/L (98-108); Creatinine, Blood 0.67 mg/dL (0.60-1.20); Glomerular Filtration Rate >60 (60-); Glucose, Blood 158 mg/dL (70-99); Potassium, Blood 3.4 mmol/L (3.5-5.5); Sodium, Blood 130 mmol/L (136-145); Total Protein, Blood 7.1 g/dL (6.4-8.2)
[2021-01-22] MEDS ORDERED: ACET325 PO (14:02)
[2021-01-22] MEDS ORDERED: METO50ER PO (14:02)
[2021-01-22] MEDS ORDERED: TRAM50 PO (14:03)
[2021-01-22] MEDS ORDERED: VISBIOME 112.51 EACH PO (14:07)
[2021-01-22] MEDS ORDERED: AMOCLA875 PO (14:07)
--- NOTE | 2021-01-22 15:56 | NUR ---
DISCHARGE SUMMARY: PATIENT DENIED PAIN OR DISCOMFORT THROUGHOUT SHIFT. PATIENT UP TO CHAIR MULTIPLE TIMES. PATIENT STEADY ON FEET WITH FWW. PATIENT DENIED DIZZINESS OR SOB WITH ACTIVITY. PATIENT READY FOR DISCHARGE. DISCHARGE MEDICATIONS FAXED TO [facility] PER PATIENT REQUEST. SCRIPT FOR ULTRAM GIVEN TO CAREGIVER, JOSE. DISCHARGE INSTRUCTIONS AND EDUCATION PROVIDED. ALL QUESTIONS ADDRESSED. NO CONCERNS AT THIS TIME. WOUND VAC DRESSING CHANGE BY CHARGE RNS, JOSE AND TEETEE. HOME WOUND VAC APPLIANCE ATTACHED AND CHECKED FOR LEAKS. WORKING CORRECTLY. PATIENT DISCHARGED IN WHEELCHAIR WITH CAREGIVER. PATIENT STABLE AT TIME OF DISCHARGE.
== END 2021-01-22 15:40 | disposition home health service (06) | DRG 854 ==
LOC: ER 10:30 → MEDS 14:44 → ENPENDDIS 01-22 11:04 → MEDS 01-22 15:40
PROVIDERS: Internal Medicine; Nurse Practitioner Acute Care; Physician Assistant; Podiatrist; ADMIT Family Medicine
PROC: 0JBQ0ZZ Excision of Right Foot Subcutaneous Tissue and Fascia, Open Approach (ICD-10-PCS; principal; 2021-01-18 17:00)
DX: A41.51 Sepsis due to Escherichia coli [E. coli] (principal); E87.1 Hypo-osmolality and hyponatremia; L02.611 Cutaneous abscess of right foot; L97.412 Non-pressure chronic ulcer of right heel and midfoot with fat layer exposed; E11.52 Type 2 diabetes mellitus with diabetic peripheral angiopathy with gangrene; A40.1 Sepsis due to streptococcus, group B; E78.5 Hyperlipidemia, unspecified; I10 Essential (primary) hypertension; R62.50 Unspecified lack of expected normal physiological development in childhood; Z20.822 Contact with and (suspected) exposure to COVID-19; E11.621 Type 2 diabetes mellitus with foot ulcer; E66.01 Morbid (severe) obesity due to excess calories; I48.91 Unspecified atrial fibrillation; E86.0 Dehydration; K21.9 Gastro-esophageal reflux disease without esophagitis; T50.2X5A Adverse effect of carbonic-anhydrase inhibitors, benzothiadiazides and other diuretics, initial encounter; E11.628 Type 2 diabetes mellitus with other skin complications; F17.220 Nicotine dependence, chewing tobacco, uncomplicated; E11.42 Type 2 diabetes mellitus with diabetic polyneuropathy; Z91.040 Latex allergy status; Z91.048 Other nonmedicinal substance allergy status; Z90.89 Acquired absence of other organs; Z98.890 Other specified postprocedural states; Z89.431 Acquired absence of right foot; Z79.4 Long term (current) use of insulin; Z89.411 Acquired absence of right great toe; Z79.899 Other long term (current) drug therapy
CPT/HCPCS: 0241U; 36415; 73630; 80053; 80202; 81003; 82947; 83605; 83735; 84443; 85025; 85027; 85610; 85651; 85730; 86140; 87040; 87070; 87075; 87077; 87086; 87147; 87186; 87205; 93005; 93010; 93306; 96365; 97116; 97162; 99285-25; A9270; J0696; J1885; J1940; J2405; J2543; J2704; J3010; J3370; J7030; J7050

== ENCOUNTER → 2021-01-24 | Outpatient (CLI) | payer OTHER ==
[~2021-01-24] MED LIST changes: +AMOCLA875 PO; +ASCO500 PO; +Aspir 8181 MG PO; +BASAGLAR K100 UNIT/3 SC; +CEFTRIAXONE2 G7 IV; +FLUT.05NI; +GLIP10ER PO; +JANUMET 50-5001 EACH PO; +JARDIANCE25 MG PO; +LACT PO; +LISI10 PO; +METO50ER PO; +MOBIC15 MG PO; +TICA90TA PO; +TRAM50 PO; +TRULICITY1.5 MG/0.1 SC; +VISBIOME 112.51 EACH PO; +ZINC220 PO; +ZINC50 M3 PO
== END ==
LOC: LAB SHORT 17:28 → LAB 17:28
DX: L03.111 Cellulitis of right axilla (principal)
CPT/HCPCS: 87070; 87205

== ENCOUNTER → 2021-01-29 | Outpatient (CLI) | payer OTHER | END | disposition home or self-care (01) | LOC: PLD 18:48 → LAB SHORT 18:48 | DX: E11.42 Type 2 diabetes mellitus with diabetic polyneuropathy (principal); E11.621 Type 2 diabetes mellitus with foot ulcer; L03.115 Cellulitis of right lower limb; L97.312 Non-pressure chronic ulcer of right ankle with fat layer exposed | CPT/HCPCS: 87070; 87075; 87077; 87147; 87186; 87205 ==

== ENCOUNTER 2021-01-31 00:20 | Day surgery (SDC) | payer OTHER ==
[~2021-01-31 00:20] MED LIST changes: -ASCO500 PO; -Aspir 8181 MG PO; -BASAGLAR K100 UNIT/3 SC; -CEFTRIAXONE2 G7 IV; -FLUT.05NI; -LACT PO; -LISI10 PO; -TICA90TA PO; -ZINC220 PO; -ZINC50 M3 PO
[2021-02-01] MEDS ORDERED: FURO80 PO (17:11)
[2021-02-01] MEDS ORDERED: FLUT.05NI (17:12)
[2021-02-01] MEDS ORDERED: ASCO500 PO (17:16)
[2021-02-01] MEDS ORDERED: ZINC50 M3 PO (17:17)
== END 2021-01-31 10:52 | disposition home or self-care (01) ==
LOC: ATC 00:20
DX: E11.621 Type 2 diabetes mellitus with foot ulcer (principal); L97.412 Non-pressure chronic ulcer of right heel and midfoot with fat layer exposed; L97.312 Non-pressure chronic ulcer of right ankle with fat layer exposed; L03.115 Cellulitis of right lower limb; I10 Essential (primary) hypertension; E11.42 Type 2 diabetes mellitus with diabetic polyneuropathy; M21.41 Flat foot [pes planus] (acquired), right foot; Z79.4 Long term (current) use of insulin; Z79.899 Other long term (current) drug therapy
CPT/HCPCS: 96365; J0696

== ENCOUNTER 2021-02-01 09:31 | Day surgery (SDC) | payer OTHER ==
[2021-02-01] MEDS ORDERED: FURO80 PO (17:11)
[2021-02-01] MEDS ORDERED: FLUT.05NI (17:12)
[2021-02-01] MEDS ORDERED: ASCO500 PO (17:16)
[2021-02-01] MEDS ORDERED: ZINC50 M3 PO (17:17)
== END 2021-02-01 10:59 | disposition home or self-care (01) ==
LOC: ATC 09:31
DX: E11.621 Type 2 diabetes mellitus with foot ulcer (principal); L97.312 Non-pressure chronic ulcer of right ankle with fat layer exposed; L97.412 Non-pressure chronic ulcer of right heel and midfoot with fat layer exposed; L03.115 Cellulitis of right lower limb; Z79.899 Other long term (current) drug therapy; Z79.4 Long term (current) use of insulin; Z91.040 Latex allergy status; I10 Essential (primary) hypertension; E78.00 Pure hypercholesterolemia, unspecified; E66.9 Obesity, unspecified; Z68.38 Body mass index [BMI] 38.0-38.9, adult; Z89.411 Acquired absence of right great toe; Z89.421 Acquired absence of other right toe(s)
CPT/HCPCS: 96365; J0696

== ENCOUNTER 2021-02-02 00:41 | Day surgery (SDC) | payer OTHER ==
[~2021-02-02 00:41] MED LIST changes: +ASCO500 PO; +FLUT.05NI; +ZINC50 M3 PO
== END 2021-02-02 11:10 | disposition home or self-care (01) ==
LOC: ATC 00:41
DX: E11.621 Type 2 diabetes mellitus with foot ulcer (principal); L97.412 Non-pressure chronic ulcer of right heel and midfoot with fat layer exposed; L97.312 Non-pressure chronic ulcer of right ankle with fat layer exposed; L03.115 Cellulitis of right lower limb; E11.42 Type 2 diabetes mellitus with diabetic polyneuropathy; M21.41 Flat foot [pes planus] (acquired), right foot; I10 Essential (primary) hypertension; E78.00 Pure hypercholesterolemia, unspecified; E66.9 Obesity, unspecified; Z68.38 Body mass index [BMI] 38.0-38.9, adult; Z91.040 Latex allergy status; Z79.4 Long term (current) use of insulin; Z79.899 Other long term (current) drug therapy
CPT/HCPCS: 96365; J0696

== ENCOUNTER 2021-02-03 10:06 | Day surgery (SDC) | payer OTHER ==
[2021-02-04] MEDS ORDERED: CEFTRIAXONE2 G7 IV (11:05)
== END 2021-02-03 11:00 | disposition home or self-care (01) ==
LOC: ATC 10:06
DX: E11.621 Type 2 diabetes mellitus with foot ulcer (principal); L97.412 Non-pressure chronic ulcer of right heel and midfoot with fat layer exposed; L97.312 Non-pressure chronic ulcer of right ankle with fat layer exposed; L03.115 Cellulitis of right lower limb; I10 Essential (primary) hypertension; M21.41 Flat foot [pes planus] (acquired), right foot; E11.42 Type 2 diabetes mellitus with diabetic polyneuropathy; Z79.899 Other long term (current) drug therapy; Z79.4 Long term (current) use of insulin
CPT/HCPCS: 96365; J0696

== ENCOUNTER 2021-02-04 10:15 | Day surgery (SDC) | payer OTHER ==
[2021-02-04] MEDS ORDERED: CEFTRIAXONE2 G7 IV (11:05)
== END 2021-02-04 11:20 | disposition home or self-care (01) ==
LOC: ATC 10:15
DX: E11.621 Type 2 diabetes mellitus with foot ulcer (principal); L97.412 Non-pressure chronic ulcer of right heel and midfoot with fat layer exposed; L97.312 Non-pressure chronic ulcer of right ankle with fat layer exposed; L03.115 Cellulitis of right lower limb; I10 Essential (primary) hypertension; Z91.040 Latex allergy status; Z79.4 Long term (current) use of insulin; Z79.899 Other long term (current) drug therapy; M21.41 Flat foot [pes planus] (acquired), right foot; E11.42 Type 2 diabetes mellitus with diabetic polyneuropathy
CPT/HCPCS: 96365; J0696

== ENCOUNTER 2021-02-05 00:23 | Day surgery (SDC) | payer OTHER ==
[~2021-02-05 00:23] MED LIST changes: +CEFTRIAXONE2 G7 IV
== END 2021-02-05 10:54 | disposition home or self-care (01) ==
LOC: ATC 00:23
DX: E11.621 Type 2 diabetes mellitus with foot ulcer (principal); L97.412 Non-pressure chronic ulcer of right heel and midfoot with fat layer exposed; E11.622 Type 2 diabetes mellitus with other skin ulcer; L97.312 Non-pressure chronic ulcer of right ankle with fat layer exposed; L03.115 Cellulitis of right lower limb; I10 Essential (primary) hypertension; E78.00 Pure hypercholesterolemia, unspecified; E66.9 Obesity, unspecified; E11.42 Type 2 diabetes mellitus with diabetic polyneuropathy; Z89.411 Acquired absence of right great toe; Z89.421 Acquired absence of other right toe(s); Z79.4 Long term (current) use of insulin; Z91.040 Latex allergy status; Z68.38 Body mass index [BMI] 38.0-38.9, adult
CPT/HCPCS: 96365; J0696

== ENCOUNTER 2021-02-06 03:40 | Day surgery (SDC) | payer OTHER | END 2021-02-06 11:20 | disposition home or self-care (01) | LOC: ATC 03:40 | DX: E11.621 Type 2 diabetes mellitus with foot ulcer (principal); E11.622 Type 2 diabetes mellitus with other skin ulcer; E11.42 Type 2 diabetes mellitus with diabetic polyneuropathy; L03.115 Cellulitis of right lower limb; L97.312 Non-pressure chronic ulcer of right ankle with fat layer exposed; L97.412 Non-pressure chronic ulcer of right heel and midfoot with fat layer exposed; I10 Essential (primary) hypertension; E66.9 Obesity, unspecified; Z89.411 Acquired absence of right great toe; Z89.421 Acquired absence of other right toe(s); Z79.4 Long term (current) use of insulin; Z68.38 Body mass index [BMI] 38.0-38.9, adult | CPT/HCPCS: 96365; J0696 ==

== ENCOUNTER 2021-02-07 13:28 | Inpatient (IN) | payer OTHER, MEDICARE ==
[~2021-02-07] VITALS: Ht 175.3 cm; Wt 124.7 kg
[2021-02-07 19:09] LABS: SARS-Cov-2 (COVID-19) PCR, MMC NEGATIVE (NEGATIVE)
--- NOTE | 2021-02-07 19:43 | NUR ---
ADMISSION, SHIFT SUMMARY PT ARRIVED TO PCU AT APPROXIMATELY 1815. PT WAS ABLE TO TRANSFER FROM RNEY TO BED THEN TO CHAIR SBA. PT HAD SLIGHTLY ELEVATED BP BUT WAS VERY TALKATIVE AND EXCITED TO BE CHATTING. PT HAS HX OF DEVELOPMENTAL DELAY, HE IS HIGH FUNCTIONING, LIVES ALONE IN AN APARTMENT AND HAS CAREGIVER CHECK ON HIM THROUGHOUT THE WEEK. PT WAS ABLE TO COMPLETE HISTORY AND SCREENING UPON ADMISSION. PT ON RA. PT HAS WOUND VAC ON THE RIGHT FOOT FOR AN ULCER THAT HAS BEEN DEVELOPING AND BEING TREATED WITH IN HOME WOUND CARE SERVICES FOR OVER 1 MONTH. THE WOUND VAC WAS CHANGED AND THE ULCER REDRESSED WHILE PT WAS IN THE ER. PT HAS A HEARING AID AND WAS PROVIDED WITH A CUP FOR HIM TO STORE IT NEEDED WHILE HERE. PT IS ALERT AND ORIENTED AND RESTING IN HIS ROOM AT THIS TIME
[2021-02-08 04:11] LABS: BASOPHILS ABSOLUTE AUTO 0.06 K/mm3 (0.00-0.23); BASOPHILS PERCENT AUTO 1 % (0-2); EOSINOPHILS ABSOLUTE AUTO 0.35 K/mm3 (0.00-0.68); EOSINOPHILS PERCENT AUTO 5 % (0-6); Hematocrit 40.4 % (37.0-53.0); Hemoglobin 13.3 g/dL (13.5-17.5); IMMATURE GRAN ABSOLUTE AUTO 0.02 K/mm3 (0.00-0.10); IMMATURE GRAN PERCENT AUTO 0 % (0-1); LYMPHOCYTES ABSOLUTE AUTO 1.67 K/mm3 (0.84-5.20); LYMPHOCYTES PERCENT AUTO 25 % (21-46); MONOCYTES ABSOLUTE AUTO 0.83 K/mm3 (0.16-1.47); MONOCYTES PERCENT AUTO 13 % (4-13); Mean Corpuscular HGB 29.1 pg (26.0-34.0); Mean Corpuscular HGB Conc 32.9 g/dL (31.5-36.5); Mean Corpuscular Volume 88 fL (80-100); Mean Platelet Volume 10.7 fL (9.1-12.4); NEUTROPHILS ABSOLUTE AUTO 3.66 K/mm3 (1.96-9.15); NEUTROPHILS PERCENT AUTO 56 % (41-73); Platelet Count 317 K/mm3 (150-400); RDW Coefficient Variation 14.3 % (11.7-14.2); RDW Standard Deviation 46.2 fL (35.1-46.3); Red Blood Cell Count 4.57 M/mm3 (4.30-5.90); White Blood Cell Count 6.59 K/mm3 (4.00-11.30)
[2021-02-08 04:32] LABS: Anion Gap 8 mmol/L (6-16); Blood Urea Nitrogen 26 mg/dL (8-24); Bun/Creatinine Ratio 35.6 (12.0-20.0); CO2, Blood 27 mmol/L (21-32); Calcium, Blood 9.5 mg/dL (8.5-10.1); Chloride, Blood 101 mmol/L (98-108); Creatinine, Blood 0.73 mg/dL (0.60-1.20); Glomerular Filtration Rate >60 (60-); Glucose, Blood 118 mg/dL (70-99); Potassium, Blood 3.6 mmol/L (3.5-5.5); Sodium, Blood 136 mmol/L (136-145)
--- NOTE | 2021-02-08 06:07 | NUR ---
SHIFT SUMMARY PT IS A 55 Y/O MALE, ADMITTED FOR CP. HE IS A&O X 3, WITH A MILD DEVELOPMENTAL DELAY. SBA IN THE ROOM. NO C/O CHEST PAIN, SOB OR NAUSEA, BUT PT DID REPORT A MILD DILLON. VITAL SIGNS STABLE. NO ACUTE CHANGES IN PT CONDITION NOTED DURING THE NIGHT. WOUND VAC IN PLACE TO RLE, WITH NO DRAINAGE NOTED. NO ACUTE CHANGES IN PT CONDITION NOTED DURING THE NIGHT. WILL CONTINUE TO MONITOR AND TREAT PER EMAR UNTIL HAND OFF TO DAY SHIFT RN.
--- NOTE | 2021-02-08 12:27 | NUR ---
WOUND CARE PT HAS MULTIPLE ULCERS ON THE RIGHT FOOT, THEY HAVE BEEN THERE FOR ABOUT A MONTH ACCORDING TO THE PT. PT ARRIVED WITH HIS WOUND VAC IN PLACE, A KAYE DECK WORKER WENT TO THE ED AND REDRESSED THE WOUND AND WOUND VAC PRIOR TO THE PT COMING TO PCU. PT REPORTED THE PLACEMENT OF THE WOUND VAC BEING VERY UNCOMFORTABLE TODAY. SKYE Ferro TOOK PICTURES, MEASUREMENTS AND REDRESSED THE WOUND FOR THE PT TODAY 02/08/21. THE PT TOLERATED THE REDRESSING WELL.
--- NOTE | 2021-02-08 19:06 | NUR ---
SHIFT SUMMARY PT HAD 1ST PORTION OF THE 2 DAY STRESS TEST COMPLETED THIS AFTERNOON. PT IS NPO AT MIDNIGHT FOR THE 2ND PORTION TOMORROW 02/09/21. PT HAS BEEN INDEPENDENT IN THE ROOM AND ABLE TO APPROPRIATELY MANAGE THE WOUND VAC. THE WOUND VAC WAS CHANGED TODAY, THE WOUNDS WERE REDRESSED AND THE PT REPORTS IT BEING MUCH MORE COMFORTABLE AND DENIES ANY PAIN. PT IS ALERT AND ORIENTED AND SITTING AT THE EDGE OF THE BED WATCHING TV AND HAVING A SANDWICH AT THIS TIME
[2021-02-09 04:17] LABS: BASOPHILS ABSOLUTE AUTO 0.06 K/mm3 (0.00-0.23); BASOPHILS PERCENT AUTO 1 % (0-2); EOSINOPHILS ABSOLUTE AUTO 0.39 K/mm3 (0.00-0.68); EOSINOPHILS PERCENT AUTO 5 % (0-6); Hematocrit 39.7 % (37.0-53.0); Hemoglobin 13.3 g/dL (13.5-17.5); IMMATURE GRAN ABSOLUTE AUTO 0.02 K/mm3 (0.00-0.10); IMMATURE GRAN PERCENT AUTO 0 % (0-1); LYMPHOCYTES ABSOLUTE AUTO 1.56 K/mm3 (0.84-5.20); LYMPHOCYTES PERCENT AUTO 22 % (21-46); MONOCYTES ABSOLUTE AUTO 0.88 K/mm3 (0.16-1.47); MONOCYTES PERCENT AUTO 12 % (4-13); Mean Corpuscular HGB 29.6 pg (26.0-34.0); Mean Corpuscular HGB Conc 33.5 g/dL (31.5-36.5); Mean Corpuscular Volume 88 fL (80-100); Mean Platelet Volume 10.6 fL (9.1-12.4); NEUTROPHILS ABSOLUTE AUTO 4.31 K/mm3 (1.96-9.15); NEUTROPHILS PERCENT AUTO 60 % (41-73); Platelet Count 294 K/mm3 (150-400); RDW Coefficient Variation 14.2 % (11.7-14.2); RDW Standard Deviation 45.3 fL (35.1-46.3); Red Blood Cell Count 4.49 M/mm3 (4.30-5.90); White Blood Cell Count 7.22 K/mm3 (4.00-11.30)
[2021-02-09 04:35] LABS: Alanine Aminotransfer (ALT/SGP 41 U/L (12-78); Albumin, Blood 3.1 g/dL (3.4-5.0); Albumin/Globulin Ratio 0.7 (0.8-1.8); Alk Phos 84 U/L (50-136); Anion Gap 6 mmol/L (6-16); Aspartate Aminotrans (AST/SGOT 18 U/L (12-37); Bilirubin, Total 0.7 mg/dL (0.1-1.0); Blood Urea Nitrogen 23 mg/dL (8-24); Bun/Creatinine Ratio 28.8 (12.0-20.0); CO2, Blood 29 mmol/L (21-32); Calcium, Blood 9.9 mg/dL (8.5-10.1); Chloride, Blood 98 mmol/L (98-108); Globulin, Blood 4.2 g/dL (2.2-4.0); Glomerular Filtration Rate >60 (60-); Glucose, Blood 185 mg/dL (70-99); Potassium, Blood 3.8 mmol/L (3.5-5.5); Sodium, Blood 133 mmol/L (136-145); Total Protein, Blood 7.3 g/dL (6.4-8.2)
--- NOTE | 2021-02-09 10:49 | NUR ---
PT ALERT AND ORIENTED X4. ON ROOM AIR SATING ABOVE 94%. TELE SHOWING SINUS TACH WITH PVC'S AND HR 107. DENIES CHEST PAIN/PRESSURE. VITAL SIGNS STABLE. DENIES OVERALL PAIN. 2ND PART OF STRESS TEST THIS AM. NPO THIS MORNING. DRINKING WATER WITH MORNING MEDICATIONS. CAREGIVER AT BEDSIDE. WOUND VAC TO RIGHT FOOT. PT ABLE TO MANAGE WOUND VAC APPROPRIATLY. UP TO BATHROOM WITH SBA FOR SAFETY. CALL LIGHT IN REACH. WILL CONTINUE TO MONITOR.
--- NOTE | 2021-02-09 15:15 | NUR ---
MANAGER TREASURY IN TO SEE PT. PT AGREEABLE TO ANGIOGRAM TOMORROW. WILL CONTINUE TO MONITOR.
[2021-02-09 17:11] LABS: SARS-Cov-2 (COVID-19) PCR, MMC NEGATIVE (NEGATIVE)
--- NOTE | 2021-02-09 17:40 | NUR ---
SHIFT SUMMARY: PT REMAINS STABLE, VITAL SIGNS STABLE. NO ACUTE CHANGES. FINISHED SECOND PART OF STRESS TEST TODAY. RIVER ORTIZ IN TO SEE PATIENT WITH RESULTS. CARDIOLOGY CONSULTED AND PLAN FOR ANGIO TOMORROW. PT ANXIOUS ABOUT PROCEDURE. REASSURED WITH DISCUSSION AND EXPLANATION. WOUND VAC DRESSING CHANGED. WOUNDS CLEANED AND PACKED PER WOUND VAC ORDERS. RUNNING AT 120MMHG. PT TOLERATED WELL. EATING DINNER AT THIS TIME, PLAN FOR NPO AFTER MIDNIGHT. CALL LIGHT IN REACH. WILL CONTINUE TO MONITOR AND REPORT OFF. CAREGIVER MARIETTA IN TO DROP OFF HOME MEDICATIONS, VERIFIED BY PHARMACY AND PLACED IN PATIENTS LOCKED DRAWER.
--- NOTE | 2021-02-09 20:14 | NUR ---
SHIFT ASSESSMENT 55 YO MALE PRESENTS IN BED, PLEASANT AFFECT, ABLE TO COMMUNICATE HIS NEEDS. A&O X 4, WITH SOME MILD DEVELOPMENTAL DELAY. AT TIMES MAY NEED REDIRECTION OR CONCISE EXPLANATION ABOUT UPCOMING ANGRIOGRAM. SINUS TACHYCARDIA AT 105, WITH PVC'S. PT SATING ABOVE 94% ON ROOM AIR. WOUND VAC IN PLACE ON RIGHT FOOT TO DIABETIC ULCER, SUCTIONING. PT IS ABLE TO UNCONNECT AND RECONNECT TUBING TO AMBULATE WITH BOOT TO THE BATHROOM, SBA TO MANAGE CORDS. PIV S/L TO RIGHT HAND. PT TO BE NPO AFTER MIDNIGHT FOR ANGIOGRAM IN THE MORNING. PT REPORTS THAT HE "HAD TO GET OUT OF HERE, I CAN'T STAY COOPED UP", SO HE WALKED ACROSS THE STREET TO [place]. CALL LIGHT IN PLACE. WILL CONTINUE TO MONITOR.
[2021-02-10 04:41] LABS: CHOL/HDL RATIO 3.9; Cholesterol 148 mg/dL (50-200); HDL Cholesterol 38 mg/dL (>39); LDL/HDL RATIO 2.1; Low Density Lipoprotein Chol 80 mg/dL (0-110); Triglycerides 149 mg/dL (30-160); Very Low Density Lipoprot Chol 29 mg/dL (6-32)
--- NOTE | 2021-02-10 05:43 | NUR ---
SHIFT SUMMARY PT SLEPT WELL THIS SHIFT. CALLED APPROPRIATELY FOR SBA TO BATHROOM FOR CORD MANAGEMENT. WOUND VAC IN PLACE, SUCTIONING. NO C/O CHEST PAIN OR SOB. NPO AFTER MIDNIGHT FOR ANGIOGRAM AT 0900. CALL LIGHT AT BEDSIDE, WILL CONTINUE TO MONITOR.
--- NOTE | 2021-02-10 09:32 | NUR ---
PT ALERT AND ORIENTED THIS AM. EXPRESSING ANXIETY AND NERVOUSNESS FOR ANGIO. ABLE TO TALK WITH PATIENT AND REASSURE WITH DISCUSISON. ON ROOM AIR SATING ABOVE 94%. TELE SHOWING SINUS TACH WITH HR 100-110'S. DENIES CHEST PAIN/PRESSURE. VITAL SIGNS STABLE. WOUND VAC IN PLACE TO RIGHT FOOT SUCTIONING AT 120 MMHG. PT DENIES OVERALL PAIN. SITTING IN CHAIR THIS AM COLORING. INDEPENDENT TO BATHROOM WITH SBA FOR SAFETY. CALLING APPROPRIATLY. ACHS IN PLACE. [place], HEARING AIR IN RIGHT EAR. WENT FOR ANGIO AT 0830 THIS AM VIA BED.
--- NOTE | 2021-02-10 10:42 | NUR ---
PT RETURNED FROM [facility]ENTER AT 1020. ALERT AND ORIENTED X4. ON ROOM AIR SATING ABOVE 94%. VITAL SIGNS STABLE. EKG DONE PER ORDERS. FLUIDS RUNNING AT 100 ML/HR FOR A TOTAL OF 500 ML. PT IN GOOD SPIRITS. RIGHT RADIAL SIGHT. TR BAND IN PLACE WITH 12ML IN BAND. NO SIGNS OF BLEEDING OR HEMATOMA. WILL CONTINUE TO MONITOR.
--- NOTE | 2021-02-10 15:45 | NUR ---
TR BAND REMOVED AT 1520. NO SIGNS OF BLEEDING, OR HEMATOMA. SIGHT REMAINS SOFT AND NONTENDER. SCANT AMOUNT OF DRAINAGE AT PUNCTURE SIGHT, REMAINS UNCHANGED. TEGADERM AND ARM BOARD IN PLACE. REINFORCED POST ANGIO CARE INSTRUCTIONS. PT VERBALIZED. CALL LIGHT IN REACH. WILL CONTINUE TO MONITOR.
--- NOTE | 2021-02-10 17:20 | NUR ---
SHIFT SUMMARY: ALERT AND ORIENTED X4. REMAINS STABLE, NO ACUTE CHANGES. SEE PREVIOUS NOTES FOR UPDATES. VITAL SIGNS REMAIN STABLE. AT THIS TIME DENIES PAIN AND UP IN CHAIR EATING DINNER. RIGHT RADIAL SIGHT, POST ANGIO. NO SIGNS OF BLEEDING OR HEMATOMA. SIGHT REMAINS SOFT AND NONTENDER. ARM BOARD IN PLACE. STENT CARD IN CHART AND HOME MEDICATIONS IN PATIENT LOCKED DRAWER. CALL LIGHT IN REACH AND BED IN LOW LOCKED POSITION. WILL CONTINUE TO MONITOR AND REPORT OFF.
--- NOTE | 2021-02-10 23:58 | NUR ---
SHIFT ASSESSMENT 5: PT IS SITTING AT BEDSIDE CHAIR. A&O X4. SATING ABOVE 94% ON ROOM AIR. VSS. RADIAL ANGRIOGRAM PERFORMED TODAY, TR BOARD IN PLACE TO RIGHT FOREARM . EDUCATED PT TO NOT BEND HIS HAND. SITE IS COVERED WITH A CLEAR TRANSPARENT DRESSING, NO DRAINAGE, BLEEDING OR BRUISING NOTED. IV IN LEFT AC IS FLUSHED WITH NORMAL SALINE. 8: PT ASLEEP, RESTING COMFORTABLY. WILL CONTINUE TO MONITOR.
[2021-02-11 05:20] LABS: Hematocrit 41.8 % (37.0-53.0); Hemoglobin 14.1 g/dL (13.5-17.5); Mean Corpuscular HGB 29.6 pg (26.0-34.0); Mean Corpuscular HGB Conc 33.7 g/dL (31.5-36.5); Mean Corpuscular Volume 88 fL (80-100); Mean Platelet Volume 10.8 fL (9.1-12.4); Platelet Count 312 K/mm3 (150-400); RDW Coefficient Variation 14.4 % (11.7-14.2); RDW Standard Deviation 46.1 fL (35.1-46.3); Red Blood Cell Count 4.76 M/mm3 (4.30-5.90); White Blood Cell Count 7.47 K/mm3 (4.00-11.30)
[2021-02-11 05:42] LABS: Anion Gap 9 mmol/L (6-16); Blood Urea Nitrogen 23 mg/dL (8-24); Bun/Creatinine Ratio 29.7 (12.0-20.0); CO2, Blood 26 mmol/L (21-32); Calcium, Blood 9.5 mg/dL (8.5-10.1); Chloride, Blood 94 mmol/L (98-108); Creatinine, Blood 0.77 mg/dL (0.60-1.20); Glomerular Filtration Rate >60 (60-); Glucose, Blood 218 mg/dL (70-99); Potassium, Blood 3.8 mmol/L (3.5-5.5); Sodium, Blood 129 mmol/L (136-145)
--- NOTE | 2021-02-11 06:09 | NUR ---
SHIFT SUMMARY PT S/P ANGIOGRAM. NO BRUISING, BLEEDING OR SWELLING NOTED TO RIGHT FOREARM PUNCTURE WOUND. ARMBOARD IN PLACE, EDUCATED TO NOT FLEX THE RIGHT FOREARM. EKG COMPLETED. VSS. NO ACUTE CHANGES, WILL CONTINUE TO MONITOR.
[2021-02-11] MEDS ORDERED: ZINC220 PO (10:18)
[2021-02-11] MEDS ORDERED: Aspir 8181 MG PO (10:18)
[2021-02-11] MEDS ORDERED: TICA90TA PO (10:18)
[2021-02-11] MEDS ORDERED: LISI10 PO (10:18)
--- NOTE | 2021-02-11 18:00 | NUR ---
DISCHARGE SUMMARY: TUFTING MACHINE OPERATOR SINGLE NEEDLE RODRIGUEZ WAS CALLED, PATIENT HAD A SET OF CLOTHES TO CHANGE INTO. IV'S WERE D/C'd WITH NO COMPLICATIONS, DRESSING APPLIED. PATIENT HAD ALREADY SWITCHED TO PERSONAL WOUND VAC AT THE CORRECT SETTINGS. TELEMETRY RETURNED, DISHCHARGE INSTRUCTIONS WERE GIVEN AND RETEACHING WAS UTILIZED, FOR BOTH MEDS AND DISCHARGE INSTRUCTIONS. PATIENT WAS EAGER TO DISCHARGE, PATIENT WAS WHEELED OUT WITH ALL HOME MEDS, PERSONAL BELONGINGS, INCLUDING PERSONAL WOUND VAC.
== END 2021-02-11 11:21 | disposition home health service (06) | DRG 247 ==
LOC: ER 13:28 → ERHOLD 13:29 → PCU 13:29 → UNDODEPER 17:55 → PCU 18:14
PROVIDERS: Emergency Medicine; Internal Medicine; Internal Medicine Cardiovascular Disease; ADMIT Hospitalist
PROC: 027034Z Dilation of Coronary Artery, One Artery with Drug-eluting Intraluminal Device, Percutaneous Approach (ICD-10-PCS; principal; 2021-02-10)
PROC: B2111ZZ Fluoroscopy of Multiple Coronary Arteries using Low Osmolar Contrast (ICD-10-PCS; 2021-02-10)
PROC: 4A023N7 Measurement of Cardiac Sampling and Pressure, Left Heart, Percutaneous Approach (ICD-10-PCS; 2021-02-10)
PROC: B2151ZZ Fluoroscopy of Left Heart using Low Osmolar Contrast (ICD-10-PCS; 2021-02-10)
DX: I21.4 Non-ST elevation (NSTEMI) myocardial infarction (principal); Z68.41 Body mass index [BMI] 40.0-44.9, adult; L97.219 Non-pressure chronic ulcer of right calf with unspecified severity; Z20.822 Contact with and (suspected) exposure to COVID-19; E11.621 Type 2 diabetes mellitus with foot ulcer; E78.5 Hyperlipidemia, unspecified; I48.91 Unspecified atrial fibrillation; I10 Essential (primary) hypertension; K21.9 Gastro-esophageal reflux disease without esophagitis; F17.220 Nicotine dependence, chewing tobacco, uncomplicated; E66.01 Morbid (severe) obesity due to excess calories; F81.89 Other developmental disorders of scholastic skills; Z91.040 Latex allergy status; Z91.048 Other nonmedicinal substance allergy status; Z79.84 Long term (current) use of oral hypoglycemic drugs; Z79.899 Other long term (current) drug therapy
CPT/HCPCS: 36415; 71046; 78452; 80048; 80053; 80061; 82947; 83036; 83735; 84484; 85025; 85027; 85347; 85651; 93005; 93010; 93017; 93458; 96365; 96372; 99152; 99153; 99284-25; 99285-25; A9270; A9500; C1725; C1769; C1874; C1887; C1894; C9600; G0378; J0696; J0706; J1644; J1650; J2250; J2785; J3010; J7030; J7040; J7050; Q9967; U0004

== ENCOUNTER 2021-03-21 14:46 | Inpatient (IN) | payer OTHER ==
[~2021-03-21] VITALS: Ht 172.7 cm; Wt 124.7 kg
[~2021-03-21 14:46] MED LIST changes: +Aspir 8181 MG PO; +LISI10 PO; +TICA90TA PO; +ZINC220 PO
[2021-03-21 15:59] LABS: BASOPHILS ABSOLUTE AUTO 0.04 K/mm3 (0.00-0.23); BASOPHILS PERCENT AUTO 1 % (0-2); EOSINOPHILS PERCENT AUTO 17 % (0-6); Hematocrit 38.3 % (37.0-53.0); Hemoglobin 12.6 g/dL (13.5-17.5); IMMATURE GRAN ABSOLUTE AUTO 0.04 K/mm3 (0.00-0.10); IMMATURE GRAN PERCENT AUTO 1 % (0-1); LYMPHOCYTES ABSOLUTE AUTO 1.81 K/mm3 (0.84-5.20); LYMPHOCYTES PERCENT AUTO 21 % (21-46); MONOCYTES ABSOLUTE AUTO 0.83 K/mm3 (0.16-1.47); MONOCYTES PERCENT AUTO 9 % (4-13); Mean Corpuscular HGB 28.8 pg (26.0-34.0); Mean Corpuscular HGB Conc 32.9 g/dL (31.5-36.5); Mean Corpuscular Volume 88 fL (80-100); Mean Platelet Volume 10.7 fL (9.1-12.4); NEUTROPHILS ABSOLUTE AUTO 4.62 K/mm3 (1.96-9.15); NEUTROPHILS PERCENT AUTO 52 % (41-73); Platelet Count 306 K/mm3 (150-400); RDW Coefficient Variation 16.2 % (11.7-14.2); RDW Standard Deviation 51.5 fL (35.1-46.3); Red Blood Cell Count 4.37 M/mm3 (4.30-5.90); White Blood Cell Count 8.84 K/mm3 (4.00-11.30)
[2021-03-21 16:21] LABS: Alanine Aminotransfer (ALT/SGP 26 U/L (12-78); Albumin, Blood 2.9 g/dL (3.4-5.0); Albumin/Globulin Ratio 0.6 (0.8-1.8); Alk Phos 115 U/L (50-136); Anion Gap 9 mmol/L (6-16); Aspartate Aminotrans (AST/SGOT 15 U/L (12-37); Bilirubin, Total 0.5 mg/dL (0.1-1.0); Blood Urea Nitrogen 17 mg/dL (8-24); Bun/Creatinine Ratio 24.3 (12.0-20.0); CO2, Blood 22 mmol/L (21-32); Calcium, Blood 9.1 mg/dL (8.5-10.1); Chloride, Blood 105 mmol/L (98-108); Globulin, Blood 4.6 g/dL (2.2-4.0); Glomerular Filtration Rate >60 (60-); Glucose, Blood 204 mg/dL (70-99); Sodium, Blood 136 mmol/L (136-145); Total Protein, Blood 7.5 g/dL (6.4-8.2)
[2021-03-21] MEDS ORDERED: BASAGLAR K100 UNIT/3 SC (20:02)
[2021-03-21] MEDS ORDERED: JANUMET 50-5001 EACH PO (20:05)
--- NOTE | 2021-03-22 06:31 | NUR ---
SHIFT SUMMARY; LIUDMILA WAS ADMITTED FOR OSTEOMYLITIS. HE WAS SENT OVER BY DR. BANKS IN PLANS ON SURGICAL INTERVENTION. LIUDMILA IS AOX3, ABLE TO MAKE NEEDS KNOWN, CLEAR SPEECH, DESPITE HAVING A DEVELOPMENTAL DELAY. DR. BANKS WAS NOTIFED BY ER DOCTOR THAT PATIENT WAS ADMITTED TO THE FLOOR. DIABETIC ULCER ON THE RIGHT LATERAL ANKLE AND THE BOTTOM OF THE HEEL. LATERAL ANKLE HAS PINK GRANULATION TISSUE WITH SLOUGH IN THE MIDDLE, ROLLED EDGES AND SURROUNDING RED INFLAMMATION. DRAINAGE IS SEROUSSANGUOUS, MODERATE. MEASURES 1.3X1.1. BOTTOM OF HEEL MEASURES 1.3X1.1, DOWN TO THE BONE, VERY PALE WOUND BED. COUPOUS ABOUTS OF DRAINAGE, SEROUS SANGUOUS. PAINFUL TO PUT PRESSURE ON. PLACED WET TO DRY DRESSING WHICH HAD TO BE CHANGED LATER IN THE NIGHT. VS WNL, AFEBRILE. IV ANTIBOTICS WERE GIVEN. NPO AFTER MIDNIGHT FOR POSSIBLE SURGERY. HAS BEEN PLEASANT AND COOPERATIVE THIS SHIFT. CALL LIGHT IN REACH, USES APPROPRIATLY.
--- NOTE | 2021-03-22 17:29 | NUR ---
SHIFT SUMMARY PT AXO, PLEASANT AND COOPERATIVE WITH CARE. VSS. NPO FOR PROCEDURE ALL DAY. CBG ACHS, THOUGH PT NPO, SEE RESULTS. CORRECTION COVERAGE HELD R/T NPO. DRESSING CHANGED THIS SHIFT. AWAITING DR BANKS ARRIVAL SO THAT PT CAN HAVE PROCEDURE. NO OTHER CHANGES THIS SHIFT. PT UP WITH SBA TO BATHROOM. SIGNIFICANT OTHER IN ROOM AT THIS TIME WHO HAS PERMISSION FROM CHARGE NURSE TO STAY UNTIL PROCEDURE IS DONE R/T PT'S DEVELOPMENTAL DELAY. BED IN LOW POSITION, CALL LIGHT WITHIN REACH.
--- NOTE | 2021-03-22 20:10 | NUR ---
PT RETURNED FROM PACU AT 1999. PT AAOX4 AND PLEASANT. DENIES PAIN OF R FOOT CURRENTLY. PT ABLE TO STAND AND PIVOT TO BED FROM OR RTROPIC. VSS. WILL CONTINUE TO MONITOR.
[2021-03-23 05:06] LABS: BASOPHILS ABSOLUTE AUTO 0.01 K/mm3 (0.00-0.23); BASOPHILS PERCENT AUTO 0 % (0-2); EOSINOPHILS ABSOLUTE AUTO 0.01 K/mm3 (0.00-0.68); EOSINOPHILS PERCENT AUTO 0 % (0-6); Hematocrit 40.6 % (37.0-53.0); Hemoglobin 13.4 g/dL (13.5-17.5); IMMATURE GRAN ABSOLUTE AUTO 0.03 K/mm3 (0.00-0.10); IMMATURE GRAN PERCENT AUTO 0 % (0-1); LYMPHOCYTES ABSOLUTE AUTO 0.72 K/mm3 (0.84-5.20); LYMPHOCYTES PERCENT AUTO 10 % (21-46); MONOCYTES ABSOLUTE AUTO 0.12 K/mm3 (0.16-1.47); MONOCYTES PERCENT AUTO 2 % (4-13); Mean Corpuscular HGB 28.6 pg (26.0-34.0); Mean Corpuscular Volume 87 fL (80-100); Mean Platelet Volume 10.5 fL (9.1-12.4); NEUTROPHILS ABSOLUTE AUTO 6.09 K/mm3 (1.96-9.15); NEUTROPHILS PERCENT AUTO 87 % (41-73); Platelet Count 381 K/mm3 (150-400); RDW Coefficient Variation 16.1 % (11.7-14.2); RDW Standard Deviation 50.8 fL (35.1-46.3); Red Blood Cell Count 4.68 M/mm3 (4.30-5.90); White Blood Cell Count 6.98 K/mm3 (4.00-11.30)
--- NOTE | 2021-03-23 05:21 | NUR ---
PIT BOSS SUMMARY PT RETURNED FROM I&D OF R FOOT AT START OF SHIFT. WOUND WRAPPED WITH GAUZE AND ROYA WRAP BY DR NIX. PT DENIES PAIN FROM AREA THROUGH THE NIGHT. SMALL AMOUNT OF RED DRAINAGE THROUGH DRESSING. PT INSTRUCTED TO DO 75% WEIGHT BEARING OR LESS PER DR NIX ORDERS. PT HAS USED URINAL AT BEDSIDE WITH GOOD OUTPUT. VSS, WILL CONTINUE TO MONITOR.
[2021-03-23 06:14] LABS: Anion Gap 12 mmol/L (6-16); Blood Urea Nitrogen 17 mg/dL (8-24); Bun/Creatinine Ratio 25.1 (12.0-20.0); CO2, Blood 22 mmol/L (21-32); Calcium, Blood 9.7 mg/dL (8.5-10.1); Chloride, Blood 100 mmol/L (98-108); Creatinine, Blood 0.68 mg/dL (0.60-1.20); Glomerular Filtration Rate >60 (60-); Glucose, Blood 214 mg/dL (70-99); Potassium, Blood 4.2 mmol/L (3.5-5.5); Sodium, Blood 134 mmol/L (136-145)
--- NOTE | 2021-03-23 07:40 | NUR ---
03/23/21 0740 Zo Lugo VERIFICATIONS: EDIT CHART.
--- NOTE | 2021-03-23 18:03 | NUR ---
SHIFT SUMMARY PT A&OX4, ABLE TO MAKE NEEDS KNOWN, PLEASANT AND COOPERATIVE TO CARE. NO C/O PAIN OR ANY DISCOMFORT THIS SHIFT. DENIES CP, SOB, OR N&V. NO ACUTE CHANGES NOTED TO PT THIS SHIFT. DRESSING TO R FOOT WOUND C/D/I. PT DENIES PAIN TO AA. PT TO BEAR WEIGHT TO AA 75% OR LESS ORDERED. URINAL AT BEDSIDE, PT DENIES DYSURIA. BED AT LOWEST POSIION. CALL LIGHT WITHIN REACH.
--- NOTE | 2021-03-23 22:01 | NUR ---
HAD VISITOR AT SHIFT COMMENCE. CHEERFUL AFFECT. DRESSING OF RLE INTACT. ORIENTED X 4. CALL LIGHT IN REACH
--- NOTE | 2021-03-24 03:40 | NUR ---
SENIOR TECHNICAL SUPPORT ENGINEER SUMMARY HAS BEEN RESTING QUIETLY WITH FEW INTERRUPTIONS SINCE AROUND 1100 PM. DRESSING OF RIGHT FOOT INTACT. MEDICATED FOR PAIN X 1 - SEE NOV. CALL LIGHT IN REACH
[2021-03-24] MEDS ORDERED: CEPH500 PO (14:52)
[2021-03-24] MEDS ORDERED: LACT PO (14:53)
--- NOTE | 2021-03-24 15:32 | NUR ---
Discharge Summary A/Ox4, pleasant and cooperative with care. Excited about being able to go home today. Reviewed discharge paperwork with patient, questions answered to his satisfaction. Patient stated [facility] will be notified on Friday to resume HH by him. Patient to follow up with Dr. Stanton and PCP per discharge instructions, patient verbalized understanding. Meds faxed to pharmacy. IV removed, WNL. Copy of d/c papers given to patient. Personal belongings sent home. Escorted by MANAGER [employer] via w/c.
== END 2021-03-24 15:14 | disposition home or self-care (01) | DRG 982 ==
LOC: ER 14:46 → MEDS 19:37 → ERHOLD 19:37 → MEDS 21:36
PROVIDERS: Internal Medicine; Physician Assistant; Podiatrist; ADMIT Family Medicine
PROC: 0QBG0ZZ Excision of Right Tibia, Open Approach (ICD-10-PCS; principal; 2021-03-22 08:45)
DX: E11.621 Type 2 diabetes mellitus with foot ulcer (principal); M86.8X7 Other osteomyelitis, ankle and foot; Z68.41 Body mass index [BMI] 40.0-44.9, adult; L97.414 Non-pressure chronic ulcer of right heel and midfoot with necrosis of bone; E11.69 Type 2 diabetes mellitus with other specified complication; E78.5 Hyperlipidemia, unspecified; I10 Essential (primary) hypertension; K21.9 Gastro-esophageal reflux disease without esophagitis; E88.81 Metabolic syndrome and other insulin resistance; E66.9 Obesity, unspecified; I25.10 Atherosclerotic heart disease of native coronary artery without angina pectoris; D63.8 Anemia in other chronic diseases classified elsewhere; E11.610 Type 2 diabetes mellitus with diabetic neuropathic arthropathy; R62.50 Unspecified lack of expected normal physiological development in childhood; F17.220 Nicotine dependence, chewing tobacco, uncomplicated; Z91.040 Latex allergy status; Z98.890 Other specified postprocedural states; Z90.89 Acquired absence of other organs; Z89.431 Acquired absence of right foot; Z79.82 Long term (current) use of aspirin; Z79.51 Long term (current) use of inhaled steroids; Z79.899 Other long term (current) drug therapy; Z79.4 Long term (current) use of insulin; I25.2 Old myocardial infarction; Z95.5 Presence of coronary angioplasty implant and graft
CPT/HCPCS: 36415; 80048; 80053; 82947; 85025; 87071; 87075; 87205; 88305; 88311; 93925; 94762; 96374; 99284-25; A9270; J1100; J2250; J2405; J2704; J3370; J7050; J7120

== ENCOUNTER 2021-04-25 12:35 | Inpatient (IN) | payer OTHER ==
[~2021-04-25] VITALS: Ht 172.7 cm; Wt 119.2 kg
[~2021-04-25 12:35] MED LIST changes: +BASAGLAR K100 UNIT/3 SC; +LACT PO
[2021-04-25] MEDS ORDERED: CEPH500 PO (17:12)
[2021-04-25] MEDS ORDERED: Lisinopril10 MG PO (17:13)
[2021-04-25] MEDS ORDERED: TRULICITY1.5 MG/0.1 SC (17:16)
[2021-04-25 17:48] LABS: BASOPHILS ABSOLUTE AUTO 0.07 K/mm3 (0.00-0.23); BASOPHILS PERCENT AUTO 1 % (0-2); EOSINOPHILS ABSOLUTE AUTO 0.18 K/mm3 (0.00-0.68); EOSINOPHILS PERCENT AUTO 2 % (0-6); Hematocrit 42.4 % (37.0-53.0); Hemoglobin 13.7 g/dL (13.5-17.5); IMMATURE GRAN ABSOLUTE AUTO 0.09 K/mm3 (0.00-0.10); IMMATURE GRAN PERCENT AUTO 1 % (0-1); LYMPHOCYTES PERCENT AUTO 24 % (21-46); MONOCYTES ABSOLUTE AUTO 1.23 K/mm3 (0.16-1.47); MONOCYTES PERCENT AUTO 13 % (4-13); Mean Corpuscular HGB 27.6 pg (26.0-34.0); Mean Corpuscular HGB Conc 32.3 g/dL (31.5-36.5); Mean Corpuscular Volume 85 fL (80-100); NEUTROPHILS PERCENT AUTO 59 % (41-73); Platelet Count 464 K/mm3 (150-400); RDW Coefficient Variation 15.7 % (11.7-14.2); RDW Standard Deviation 49.7 fL (35.1-46.3); Red Blood Cell Count 4.97 M/mm3 (4.30-5.90); White Blood Cell Count 9.17 K/mm3 (4.00-11.30)
[2021-04-25 18:09] LABS: Alanine Aminotransfer (ALT/SGP 31 U/L (12-78); Albumin, Blood 3.5 g/dL (3.4-5.0); Albumin/Globulin Ratio 0.6 (0.8-1.8); Alk Phos 130 U/L (50-136); Anion Gap 11 mmol/L (6-16); Aspartate Aminotrans (AST/SGOT 17 U/L (12-37); Blood Urea Nitrogen 29 mg/dL (8-24); Bun/Creatinine Ratio 31.9 (12.0-20.0); CO2, Blood 25 mmol/L (21-32); Chloride, Blood 96 mmol/L (98-108); Creatinine, Blood 0.91 mg/dL (0.60-1.20); Globulin, Blood 5.8 g/dL (2.2-4.0); Glomerular Filtration Rate >60 (60-); Glucose, Blood 129 mg/dL (70-99); Potassium, Blood 3.4 mmol/L (3.5-5.5); Sodium, Blood 132 mmol/L (136-145); Total Protein, Blood 9.3 g/dL (6.4-8.2)
[2021-04-25 20:54] LABS: SARS-Cov-2 (COVID-19) PCR, MMC NEGATIVE (NEGATIVE)
[2021-04-25] MEDS ORDERED: Flonase 0.05% N16 GM (21:50)
[2021-04-25] MEDS ORDERED: LACT PO (21:51)
[2021-04-25] MEDS ORDERED: ZESTORETIC 20-1 EACH PO (21:59)
[2021-04-26 05:34] LABS: BASOPHILS ABSOLUTE AUTO 0.07 K/mm3 (0.00-0.23); BASOPHILS PERCENT AUTO 1 % (0-2); EOSINOPHILS PERCENT AUTO 4 % (0-6); Hematocrit 36.1 % (37.0-53.0); Hemoglobin 11.5 g/dL (13.5-17.5); IMMATURE GRAN ABSOLUTE AUTO 0.06 K/mm3 (0.00-0.10); IMMATURE GRAN PERCENT AUTO 1 % (0-1); LYMPHOCYTES ABSOLUTE AUTO 1.75 K/mm3 (0.84-5.20); LYMPHOCYTES PERCENT AUTO 24 % (21-46); MONOCYTES ABSOLUTE AUTO 1.12 K/mm3 (0.16-1.47); MONOCYTES PERCENT AUTO 15 % (4-13); Mean Corpuscular HGB 27.4 pg (26.0-34.0); Mean Corpuscular HGB Conc 31.9 g/dL (31.5-36.5); Mean Corpuscular Volume 86 fL (80-100); Mean Platelet Volume 10.3 fL (9.1-12.4); NEUTROPHILS ABSOLUTE AUTO 3.96 K/mm3 (1.96-9.15); NEUTROPHILS PERCENT AUTO 55 % (41-73); Platelet Count 375 K/mm3 (150-400); RDW Coefficient Variation 15.7 % (11.7-14.2); RDW Standard Deviation 49.5 fL (35.1-46.3); White Blood Cell Count 7.26 K/mm3 (4.00-11.30)
[2021-04-26 06:10] LABS: Anion Gap 11 mmol/L (6-16); Blood Urea Nitrogen 26 mg/dL (8-24); Bun/Creatinine Ratio 29.7 (12.0-20.0); CO2, Blood 23 mmol/L (21-32); Calcium, Blood 9.1 mg/dL (8.5-10.1); Chloride, Blood 100 mmol/L (98-108); Creatinine, Blood 0.88 mg/dL (0.60-1.20); Glomerular Filtration Rate >60 (60-); Glucose, Blood 119 mg/dL (70-99); Potassium, Blood 3.5 mmol/L (3.5-5.5); Sodium, Blood 134 mmol/L (136-145)
--- NOTE | 2021-04-26 06:34 | NUR ---
SHIFT SUMMARY PT WAS A NEW ADMIT DURING THE NIGHT, ARRIVING ON THE FLOOR AT 2021. HE IS A&O X 3, WITH MILD DEVELOPMENTAL DELAY. HE WAS ADMITTED FOR R FOOT OSTEOMYELITIS AND POSSIBLE R BKA TODAY. PT IS ABLE TO AMBULATE INDEPENDENTLY. PT WAS MEDICATED FOR RLE PAIN WITH PRN TYLENOL. NO C/O NAUSEA OR SOB. VITAL SIGNS STABLE. PT RECEIVING NS + K @ 100 ML/HR. PT HAS BEEN NPO SINCE MIDNIGHT IN PREP FOR SURGICAL PROCEDURE. NO OTHER ACUTE CHANGES IN PT CONDITION NOTED SINCE ADMISSION. WILL CONTINUE TO MONITOR AND TREAT PER EMAR UNTIL HAND OFF TO DAY SHIFT RN.
--- NOTE | 2021-04-26 07:30 | NUR ---
ASSUMED CARE: PT RESTING QUIETLY AT THIS TIME. NO ACUTE NEEDS OR CONCERNS NOTED.
--- NOTE | 2021-04-26 11:59 | NUR ---
PT WAS ASKING WHEN SURGERY WILL BE. DISCUSSED WITH DAY SURGERY STAFF WHO STATED THIS AFTERNOON. MADE PT AWARE AND CALLED HIS VP SCIENTIFIC SO SHE COULD BE HERE TO BE EXTRA EARS FOR PT DUE TO DEVELOPMENTAL DELAY.
--- NOTE | 2021-04-26 14:25 | NUR ---
PT TAKEN TO DAY SURGERY WITH CAREGIVER ACCOMPANYING PT. TRANSFERRED VIA BED BY HOSPITAL STAFF
--- NOTE | 2021-04-26 15:05 | NUR ---
History, Chart, Medications and Allergies reviewed before start of procedure. Patient confirms NPO status and agrees with scheduled surgery. Pre-Op teaching done. Pt verbalizes understanding. PT IN TO DAYSURGERY BY BED WITH CAREGIVER, REPORTS PT SIGNS OWN CONSENTS. PT APPEARS A/O NOW. PT LUNG SOUNDS CLEAR TO LEFT SIDE, SLIGHT WHEEZE TO RIGHT SIDE, WILL DISCUSS WITH ANESTHESIA.
--- NOTE | 2021-04-26 17:31 | NUR ---
REPORT CALLED TO SKYE HENDRIX
--- NOTE | 2021-04-27 06:22 | NUR ---
SHIFT SUMMARY POD1 R BKA, A/O X4, VSS, TOLERATING DIET, PAIN WELL MANAGED PER EMAR, PT UP TO CHAIR FOR 1 HOUR PER PATIENT REQUEST, DID WELL c TRANSFERRING USING 2 PERSON SBA/GB/FWW AND NEEDING COACHING ON SAFE POSITIONING WHILE USING A FWW. C/O HEARING POPPING SOUND FROM INCISION SITE, STUMP SOCK REMOVED AND GAUZE INSPECTED, FOUND SCANT DRY DRAINAGE ON GAUZE UNDER ROYA WRAP INDICATING NO CURRENT ACTIVE BLEEDING, GAUZE NOT REMOVED, STUMP SOCK REPLACE, PATIENT SATISFIED AND REASSURED THAT INCISION WAS WNL/INTACT. NO ACUTE EVENTS THIS SHIFT. CALL LIGHT IN REACH, WILL CTM AND REPORT TO DAY RN
--- NOTE | 2021-04-27 17:57 | NUR ---
DR AMADA KEMP HERE AND DRESSING CHANGE COMPLETED BY PHYSICIAN TO RLE. PT REPORTS PAIN IS WELL CONTROLLED WITH PO MEDS, PT TRANSFERRED FROM BED TO CHAIR WITH 1 PERSON ASSIST . PTS GIRLFRIEND HERE TO VISIT. PT CHEERFUL, COOPERATIVE.
--- NOTE | 2021-04-28 04:03 | NUR ---
SHIFT SUMMARY NO ACUTE CHANGES THIS SHIFT. PT CONT TO DENY PAIN TO R BKA. STUMP SOCK REMAINS CDI. PT USING URINAL TO VOID. UP WITH 1 SBA USING FWW TO BSC. PT USES CALL LIGHT FREQUENTLY.
--- NOTE | 2021-04-28 19:38 | NUR ---
SHIFT SUMMARY PT IS POD#2 [address] R BKA WITH DR. KEMP. PAIN MANAGED WITH PO PERCOCET. PT IS TOLERATING PO WELL AND HAS HAD GOOD URINARY OUTPUT. PT IS A 1 ASSIST WITH THERAPY. HE SAT UP TO THE CHAIR X1 HOUR TODAY. VSS. WILL MONITOR UNTIL REPORT TO DEANGELO RN.
--- NOTE | 2021-04-29 07:34 | NUR ---
SUMMARY STUMP SOCK D/I. PT MOVES WELL IN BED AND SITS ON EDGE OPF BED WITH ASSIST.
--- NOTE | 2021-04-29 09:41 | NUR ---
DR. NAQVI ROUNDED ON PT. DISCUSSED ELEVATED HR, BOWEL CARE AND BURNING/ITCHING TO THE STUMP. WILL CONTINUE TO MONITOR.
--- NOTE | 2021-04-29 16:35 | NUR ---
LOW BLOOD PRESSURE PT HAD A BELOW NORMAL BP READING. ASSESSED PT AND HE WAS A&O LAYING ON HIS SIDE WITH THE HEAD OF THE BED ELEVATED. HEART SOUNDS WERE NORMAL. RADIAL PULSES STRONG BILATERALLY. PT DENIES ANY DIZZINESS OR SYMPTOMS. WILL CONTINUE TO MONITOR.
--- NOTE | 2021-04-29 16:59 | NUR ---
SHIFT SUMMARY POD 3 FOR RIGHT BKA DUE TO OSTEOMYLITIS. PT IS A&O X4 WITH SOME HX OF DEVELOPMENTAL DELAY. PT IS A STANDBY ASSIST W/GAIT BELT AND WALKER. WOUNDCARE DONE TODAY BY . PT TOLERATED WELL. ABD PADS AND ROYA BANDAGES REAPPLIED TO RIGHT STUMP. PT WAS ABLE TO HAVE A BM TODAY AND IS PASSING FLATUS. PT WAS ABLE TO GET UP TO CHAIR X2 TODAY WELL THE BEDSIDE COMMODE WITH ASSISTANCE. PT HAD A LOW BP THIS AFTERNOON. PT ASSESSED AND HEART AND PULSES GOOD AND PT DENIED DIZZINESS OR SYMPTOMS. CONTINUE TO MONITOR. PLAN IS TO TRANSFER TO A SNF ONCE PT IS CLEARED BY PHYSICAL THERAPY.
--- NOTE | 2021-04-30 08:05 | NUR ---
SUMMARY PT WITH NO ACUTE CHANGES. HOPING FOR SNF SOON.
--- NOTE | 2021-04-30 11:13 | NUR ---
SPOKE WITH PT'S PHARMACY AND CONFIRMED THAT PT TAKES 60 UNITS OF LANTUS DAILY.
[2021-04-30 14:49] LABS: SARS-Cov-2 (COVID-19) PCR, MMC NEGATIVE (NEGATIVE)
--- NOTE | 2021-04-30 18:01 | NUR ---
SHIFT SUMMARY PT IS A/O X4, 1-2X ASSIST UP TO CHAIR. S/P R BKA, STUMP SOCK IN PLACE, CDI, CHANGED TODAY BY PHYSICIAN PER PT. PT HAS NOT C/O PAIN TODAY. HE IS TOLERATING PO INTAKE AND VOIDING USING URINAL, ALSO HAD BM TODAY. PT WAS UP TO CHAIR TODAY, NOW BACK TO BED AND VISITING WITH FRIEND. PLAN IS TO DC TO REHAB FACILITY WHEN BED IS AVAILABLE. PT RESTING AT THIS TIME. CALL LIGHT IN REACH.
--- NOTE | 2021-04-30 19:38 | NUR ---
RECEIVED REPORT AND ASSUMED CARE OF PT. HE IS ABLE TO MAKE HIS NEEDS KNOWN AND DIRECT HIS CARE. PT PLEASANT AND COOPERATIVE. REQUESTING ICE WATER, DENIES ANY OTHER NEEDS AT THIS TIME. JYOTI.
--- NOTE | 2021-05-01 06:00 | NUR ---
SHIFT SUMMARY: LIUDMILA IS A&O X 4. VSS, NO ACUTE EVENTS OVERNIGHT. DRESSING TO RIGHT BKA C/D&I. HE IS TOLERATING PO INTAKE WELL, URINATING WITHOUT DIFFICULTY, AND REPORTS HAVING HAD A BOWEL MOVEMENT YESTERDAY. HE REPORTS GOOD PAIN CONTROL WITH ONE TALBET OF OXYCODONE. HE IS A ONE PERSON ASSIST FOR TRANSFERS. HE IS LYING IN BED WITH THE CALL LIGHT IN REACH. WILL REPORT TO ROSANA MARTINES RN.
--- NOTE | 2021-05-01 15:41 | NUR ---
[facility]
--- NOTE | 2021-05-01 17:37 | NUR ---
DISCHARGE PT DC'D TO [facility] AT 1735. PT IS A/O X4, PAIN BEING MANAGED WITH PO PAIN MEDS. TOLERATING PO INTAKE AND VOIDING. DC PACKET SENT WITH [facility] TRANSPORT. PT TRANSPORTED VIA WHEELCHAIR W/[facility]. SCRIPT IN PACKET. REPORT CALLED TO RN AT [facility]. PERSONAL BELONGINGS SENT WITH PT.
== END 2021-05-01 17:35 | DRG 617 ==
LOC: ER 12:35 → SURS 20:06 → MEDS 20:06 → SURS 04-26 17:15
PROVIDERS: Internal Medicine; Orthopaedic Surgery; Physician Assistant; ADMIT Internal Medicine
PROC: 0Y6H0Z1 Detachment at Right Lower Leg, High, Open Approach (ICD-10-PCS; principal; 2021-04-26 16:00)
DX: E11.69 Type 2 diabetes mellitus with other specified complication (principal); Z68.41 Body mass index [BMI] 40.0-44.9, adult; E87.1 Hypo-osmolality and hyponatremia; E11.51 Type 2 diabetes mellitus with diabetic peripheral angiopathy without gangrene; Z20.822 Contact with and (suspected) exposure to COVID-19; E87.6 Hypokalemia; I25.10 Atherosclerotic heart disease of native coronary artery without angina pectoris; E78.5 Hyperlipidemia, unspecified; I10 Essential (primary) hypertension; K21.9 Gastro-esophageal reflux disease without esophagitis; D63.8 Anemia in other chronic diseases classified elsewhere; E66.01 Morbid (severe) obesity due to excess calories; R62.50 Unspecified lack of expected normal physiological development in childhood; Z91.040 Latex allergy status; Z91.09 Other allergy status, other than to drugs and biological substances; I25.2 Old myocardial infarction; Z95.5 Presence of coronary angioplasty implant and graft; Z79.84 Long term (current) use of oral hypoglycemic drugs; Z79.899 Other long term (current) drug therapy; Z90.89 Acquired absence of other organs; Z98.890 Other specified postprocedural states; Z89.431 Acquired absence of right foot; Z79.82 Long term (current) use of aspirin
CPT/HCPCS: 36415; 80048; 80053; 82947; 85025; 88307; 88311; 97110; 97161; 97166; 97530; 97535; 99284-25; A9270; J0330; J0690; J1100; J1650; J1885; J2250; J2370; J2405; J2704; J3010; J3480; J7120; U0004

== ENCOUNTER 2021-05-25 18:55 | Inpatient (IN) | payer OTHER ==
[~2021-05-25] VITALS: Ht 172.7 cm; Wt 116.7 kg
[~2021-05-25 18:55] MED LIST changes: +Flonase 0.05% N16 GM; +Lisinopril10 MG PO; +ZESTORETIC 20-1 EACH PO
[2021-05-25 19:50] LABS: BASOPHILS ABSOLUTE AUTO 0.05 K/mm3 (0.00-0.23); BASOPHILS PERCENT AUTO 1 % (0-2); EOSINOPHILS ABSOLUTE AUTO 0.29 K/mm3 (0.00-0.68); EOSINOPHILS PERCENT AUTO 3 % (0-6); IMMATURE GRAN ABSOLUTE AUTO 0.05 K/mm3 (0.00-0.10); IMMATURE GRAN PERCENT AUTO 1 % (0-1); LYMPHOCYTES ABSOLUTE AUTO 1.56 K/mm3 (0.84-5.20); LYMPHOCYTES PERCENT AUTO 14 % (21-46); MONOCYTES ABSOLUTE AUTO 0.74 K/mm3 (0.16-1.47); MONOCYTES PERCENT AUTO 7 % (4-13); Mean Corpuscular HGB 27.4 pg (26.0-34.0); Mean Corpuscular HGB Conc 32.5 g/dL (31.5-36.5); Mean Corpuscular Volume 84 fL (80-100); Mean Platelet Volume 10.9 fL (9.1-12.4); NEUTROPHILS ABSOLUTE AUTO 8.35 K/mm3 (1.96-9.15); NEUTROPHILS PERCENT AUTO 76 % (41-73); Platelet Count 370 K/mm3 (150-400); RDW Coefficient Variation 15.5 % (11.7-14.2); Red Blood Cell Count 4.74 M/mm3 (4.30-5.90); White Blood Cell Count 11.04 K/mm3 (4.00-11.30)
[2021-05-25 19:59] LABS: Anion Gap 12 mmol/L (6-16); Blood Urea Nitrogen 32 mg/dL (8-24); Bun/Creatinine Ratio 27.6 (12.0-20.0); CO2, Blood 23 mmol/L (21-32); Calcium, Blood 9.2 mg/dL (8.5-10.1); Chloride, Blood 102 mmol/L (98-108); Creatinine, Blood 1.16 mg/dL (0.60-1.20); Glomerular Filtration Rate >60 (60-); Glucose, Blood 263 mg/dL (70-99); Potassium, Blood 3.9 mmol/L (3.5-5.5); Sodium, Blood 137 mmol/L (136-145)
[2021-05-25 21:39] LABS: SARS-Cov-2 (COVID-19) PCR, MMC NEGATIVE (NEGATIVE)
[2021-05-26 04:43] LABS: BASOPHILS ABSOLUTE AUTO 0.04 K/mm3 (0.00-0.23); BASOPHILS PERCENT AUTO 1 % (0-2); EOSINOPHILS ABSOLUTE AUTO 0.32 K/mm3 (0.00-0.68); EOSINOPHILS PERCENT AUTO 4 % (0-6); Hematocrit 35.3 % (37.0-53.0); Hemoglobin 11.4 g/dL (13.5-17.5); IMMATURE GRAN ABSOLUTE AUTO 0.06 K/mm3 (0.00-0.10); IMMATURE GRAN PERCENT AUTO 1 % (0-1); LYMPHOCYTES ABSOLUTE AUTO 2.03 K/mm3 (0.84-5.20); LYMPHOCYTES PERCENT AUTO 23 % (21-46); MONOCYTES ABSOLUTE AUTO 0.79 K/mm3 (0.16-1.47); MONOCYTES PERCENT AUTO 9 % (4-13); Mean Corpuscular HGB 27.3 pg (26.0-34.0); Mean Corpuscular HGB Conc 32.3 g/dL (31.5-36.5); Mean Corpuscular Volume 84 fL (80-100); Mean Platelet Volume 10.2 fL (9.1-12.4); NEUTROPHILS ABSOLUTE AUTO 5.62 K/mm3 (1.96-9.15); NEUTROPHILS PERCENT AUTO 63 % (41-73); Platelet Count 302 K/mm3 (150-400); RDW Coefficient Variation 15.8 % (11.7-14.2); RDW Standard Deviation 48.3 fL (35.1-46.3); Red Blood Cell Count 4.18 M/mm3 (4.30-5.90); White Blood Cell Count 8.86 K/mm3 (4.00-11.30)
[2021-05-26 05:18] LABS: Alanine Aminotransfer (ALT/SGP 39 U/L (12-78); Albumin, Blood 3.3 g/dL (3.4-5.0); Albumin/Globulin Ratio 0.9 (0.8-1.8); Alk Phos 104 U/L (50-136); Anion Gap 9 mmol/L (6-16); Aspartate Aminotrans (AST/SGOT 15 U/L (12-37); Bilirubin, Total 0.6 mg/dL (0.1-1.0); Blood Urea Nitrogen 33 mg/dL (8-24); Bun/Creatinine Ratio 34.3 (12.0-20.0); CO2, Blood 26 mmol/L (21-32); Calcium, Blood 8.5 mg/dL (8.5-10.1); Chloride, Blood 104 mmol/L (98-108); Creatinine, Blood 0.96 mg/dL (0.60-1.20); Globulin, Blood 3.7 g/dL (2.2-4.0); Glomerular Filtration Rate >60 (60-); Glucose, Blood 108 mg/dL (70-99); Potassium, Blood 3.1 mmol/L (3.5-5.5); Sodium, Blood 139 mmol/L (136-145)
--- NOTE | 2021-05-26 10:25 | NUR ---
DRESSING CHANGE AT APPROX. [address] CHARLES WITH DRESSING CHANGE OF RIGHT BKA. PT TOLERATED WELL.
--- NOTE | 2021-05-26 11:43 | NUR ---
PT WENT TO OR AT AROUND 1045.
[2021-05-26 15:09] LABS: Glucose, Blood 182 mg/dL (70-99)
--- NOTE | 2021-05-26 17:36 | NUR ---
SHIFT SUMMARY POD 0 FOR I&D ON RIGHT BKA. PT TOLERATED PROCEDURE WELL. PT A&O X4. PAIN MANAGED BY EMAR. WOUNDVAC, GAUZE AND SLEEVE APPLIED TO R STUMP SURGICAL SITE AND C/D/I. PT TOLERATING FOOD AND FLUIDS WELL W/O COMPLAINT OF N/V. IV PATENT AND FUNCTIONING IN RIGHT AC. PT USES URINAL ON HIS OWN AND CALLS APPROPRIATELY. CALL LIGHT WITHIN REACH. WILL CONTINUE TO MONITOR.
[2021-05-27 05:10] LABS: BASOPHILS ABSOLUTE AUTO 0.04 K/mm3 (0.00-0.23); BASOPHILS PERCENT AUTO 1 % (0-2); EOSINOPHILS ABSOLUTE AUTO 0.28 K/mm3 (0.00-0.68); EOSINOPHILS PERCENT AUTO 5 % (0-6); Hematocrit 32.5 % (37.0-53.0); Hemoglobin 10.4 g/dL (13.5-17.5); IMMATURE GRAN ABSOLUTE AUTO 0.03 K/mm3 (0.00-0.10); IMMATURE GRAN PERCENT AUTO 1 % (0-1); LYMPHOCYTES ABSOLUTE AUTO 1.53 K/mm3 (0.84-5.20); LYMPHOCYTES PERCENT AUTO 27 % (21-46); MONOCYTES PERCENT AUTO 11 % (4-13); Mean Corpuscular HGB 27.2 pg (26.0-34.0); Mean Corpuscular Volume 85 fL (80-100); Mean Platelet Volume 10.5 fL (9.1-12.4); NEUTROPHILS ABSOLUTE AUTO 3.19 K/mm3 (1.96-9.15); NEUTROPHILS PERCENT AUTO 56 % (41-73); Platelet Count 266 K/mm3 (150-400); RDW Coefficient Variation 15.5 % (11.7-14.2); RDW Standard Deviation 47.8 fL (35.1-46.3); Red Blood Cell Count 3.82 M/mm3 (4.30-5.90); White Blood Cell Count 5.67 K/mm3 (4.00-11.30)
[2021-05-27 05:28] LABS: Anion Gap 7 mmol/L (6-16); Blood Urea Nitrogen 18 mg/dL (8-24); Bun/Creatinine Ratio 25.2 (12.0-20.0); CO2, Blood 24 mmol/L (21-32); Calcium, Blood 8.3 mg/dL (8.5-10.1); Chloride, Blood 110 mmol/L (98-108); Creatinine, Blood 0.72 mg/dL (0.60-1.20); Glomerular Filtration Rate >60 (60-); Glucose, Blood 126 mg/dL (70-99); Magnesium, Blood 2.3 mg/dL (1.6-2.4); Potassium, Blood 3.7 mmol/L (3.5-5.5); Sodium, Blood 141 mmol/L (136-145)
--- NOTE | 2021-05-27 18:41 | NUR ---
SHIFT SUMMARY POD 1 FOR WOUND DEHISCENCE AND I&D TO RIGHT BKA. WOUNDVAC IN PLACE AND SUCTIONING AT 120 WITH SLEEVE OVER STUMP WELL. WOUNDVAC SUCTIONING SANGINOUS FLUID. PT A&O X4. PT DOES HAVE SOME DEVELOPMENTAL DELAY BUT IS VERY PLEASANT. PT HAS REPORTED MINIMAL PAIN TODAY. TREATED PER EMAR. PT WORKED WITH PHYSICAL THERAPY TODAY AND WAS GIVEN SOME EXERCISES TO DO. PT IS ANXIOUS TO WORK ON THOSE EXERCISES HE CAN TOLERATE. PT SPENT MOST OF THE DAY UP IN HIS CHAIR AND TOLERATED THAT WELL. PT USES A FWW WITH GAIT BELT AND IS A 1 PERSON ASSIST. IV IS IN LEFT AC AND IS PATENT AND CURRENTLY INFUSING. CALL LIGHT WITHIN REACH.
--- NOTE | 2021-05-28 07:27 | NUR ---
SUMMARY PT WITH LITTLE DISCOMFORT.COOPERATIVE WITH CARE.RECEIVING IV ANTIBIOTICS PER NEW IV SITE.
--- NOTE | 2021-05-28 15:00 | NUR ---
Wvac dressing changed to right stump per Dr. Velazquez and chargeback specialistYany. Pt c/o being painful after dressing change. Medicate per EMAR. WVAC to 120 mmhg, no air leaks. Draining bloody drainage. New stump sock applied.
--- NOTE | 2021-05-28 18:12 | NUR ---
shift summary John has been alert and cooperative this shift. WVAC draining red drainage. Medicated for pain per EMAR. Able to work with therapy. Sat in chair this afternoon, moves self in bed and dangles without assistance. Voids without difficulty. No BM this shift. VSS, no acute changes. Will continue to monitor and report to tower climber RN.
--- NOTE | 2021-05-29 04:15 | NUR ---
SHIFT SUMMARY: PT HAS BEEN PLEASANT THROUGHOUT NIGHT. S/P I&D TO RIGHT BKA. WOUND VAC AND STUMP SOCK C/D/I. WOUND VAC DRAINING SS FLUID. PT C/O PAIN ONCE THIS SHIFT. MEDICATED WITH NORCO PER EMAR. USING URINAL INDEPENDENTLY AND VOIDING WELL. CBG STABLE. PT ABLE TO SIT ON EDGE OF BED WITHOUT ASSISTANCE. STUMP ELEVATED T/O SHIFT. VS WNL.
[2021-05-29 06:09] LABS: Creatinine, Blood 0.78 mg/dL (0.60-1.20); Vancomycin, Trough 17.3 ug/mL (5.0-10.0)
--- NOTE | 2021-05-29 17:14 | NUR ---
SHIFT SUMMARY PT HAS BEEN A&O X4 T/O SHIFT. PT IN PLEASENT MOOD. PT HAS BEEN UP TO CHAIR FOR MOST OF SHIFT, ENJOYED COLORING, AND AMBULATING IN HALLS VIA WC. PT HAS DENIED PAIN T/O SHIFT. WORKED W/ THERAPY. VSS. WOUND VAC WNL W/ RED DRAINAGE. PLAN FOR HOME W/ HOME HEALTH TOMORROW.
--- NOTE | 2021-05-30 12:15 | NUR ---
OK PER DR. SCHMITT FOR DISCHARGE AND FOLLOW UP FRIDAY OR FRIDAY WITH DR. KEMP OR DR. SCHMITT.
[2021-05-30] MEDS ORDERED: VISBIOME 112.51 EACH PO (12:44)
[2021-05-30] MEDS ORDERED: AMOX875 PO (12:45)
[2021-05-30] MEDS ORDERED: Norco 5-325 Ta1 EACH PO (13:32)
--- NOTE | 2021-05-30 13:33 | NUR ---
IV D/C'D L HAND INTACT, SITE CLEAR.
--- NOTE | 2021-05-30 13:41 | NUR ---
DISCHARGE PT'S CAREGIVER PROVIDED WITH WRITTEN AND VERBAL DISCHARGE INSTRUCTIONS. PRESCRIPTION SENT HOME FOR PAIN MEDICATION, OTHER PRESCRIPTIONS FAXED TO PT'S PHARMACY. [facility] WAS NOTIFIED OF PT DISCHARGE AND MONICA TURCIOS SENDING ORDER TO [facility]. PAIN MANAGED WITH PO PAIN MEDICATION AT TIME OF DISCHARGE. PT ESCORTED OUT IN W/C AT TIME OF DISCHARGE. VSS. PT LEFT WITH [facility]SH[facility] T[employer]I.
--- NOTE | 2021-05-30 15:47 | NUR ---
WOUND VAC DRESSING CHANGED PRIOR TO DISCHARGE. PICTURES TAKEN AND PLACED ON CHART.
== END 2021-05-30 13:45 | disposition home or self-care (01) | DRG 465 ==
LOC: ER 18:55 → ERHOLD 20:20 → SURS 20:20
PROVIDERS: Anesthesiology; Orthopaedic Surgery; Pharmacist; Student in an Organized Health Care Education/Training Program; ADMIT Internal Medicine
PROC: 0JBN0ZZ Excision of Right Lower Leg Subcutaneous Tissue and Fascia, Open Approach (ICD-10-PCS; principal; 2021-05-26 10:15)
DX: T87.43 Infection of amputation stump, right lower extremity (principal); I25.10 Atherosclerotic heart disease of native coronary artery without angina pectoris; E78.5 Hyperlipidemia, unspecified; E66.01 Morbid (severe) obesity due to excess calories; E11.9 Type 2 diabetes mellitus without complications; E11.51 Type 2 diabetes mellitus with diabetic peripheral angiopathy without gangrene; E66.9 Obesity, unspecified; Z91.040 Latex allergy status; Z88.8 Allergy status to other drugs, medicaments and biological substances; I25.2 Old myocardial infarction; I10 Essential (primary) hypertension; Z79.899 Other long term (current) drug therapy; Z79.82 Long term (current) use of aspirin; Z79.4 Long term (current) use of insulin; Z68.39 Body mass index [BMI] 39.0-39.9, adult
CPT/HCPCS: 36415; 80048; 80053; 80202; 82565; 82947; 83735; 85025; 87071; 87075; 87077; 87186; 87205; 94762; 97110; 97162; 97166; 97530; 97535; 99284; A9270; J0690; J1650; J1815; J2370; J2704; J3010; J3370; J3480; J7030; J7050; J7120; U0004

== ENCOUNTER 2021-08-01 04:40 | Day surgery (SDC) | payer OTHER ==
[~2021-08-01 04:40] MED LIST changes: +AMOX875 PO; +Norco 5-325 Ta1 EACH PO
== END 2021-08-01 23:05 | disposition home or self-care (01) ==
LOC: WOUND 04:40
DX: E11.622 Type 2 diabetes mellitus with other skin ulcer (principal); L97.812 Non-pressure chronic ulcer of other part of right lower leg with fat layer exposed; T87.9 Unspecified complications of amputation stump
CPT/HCPCS: A9270; G0463

== ENCOUNTER 2021-08-08 03:20 | Day surgery (SDC) | payer OTHER | END 2021-08-08 23:54 | disposition home or self-care (01) | LOC: WOUND 03:20 | DX: E11.622 Type 2 diabetes mellitus with other skin ulcer (principal); L97.812 Non-pressure chronic ulcer of other part of right lower leg with fat layer exposed; T87.9 Unspecified complications of amputation stump | CPT/HCPCS: A9270 ==

== ENCOUNTER 2021-08-22 02:01 | Day surgery (SDC) | payer OTHER | END 2021-08-22 23:14 | disposition home or self-care (01) | LOC: WOUND 02:01 | DX: T87.89 Other complications of amputation stump (principal); E11.622 Type 2 diabetes mellitus with other skin ulcer; L97.812 Non-pressure chronic ulcer of other part of right lower leg with fat layer exposed; E11.621 Type 2 diabetes mellitus with foot ulcer; L97.519 Non-pressure chronic ulcer of other part of right foot with unspecified severity; Y83.5 Amputation of limb(s) as the cause of abnormal reaction of the patient, or of later complication, without mention of misadventure at the time of the procedure; Z89.511 Acquired absence of right leg below knee | CPT/HCPCS: A9270 ==

== ENCOUNTER 2021-08-28 05:47 | Day surgery (SDC) | payer OTHER | END 2021-08-28 22:55 | disposition home or self-care (01) | LOC: WOUND 05:47 | DX: E11.622 Type 2 diabetes mellitus with other skin ulcer (principal); L97.812 Non-pressure chronic ulcer of other part of right lower leg with fat layer exposed; T87.2 Complications of other reattached body part | CPT/HCPCS: G0463 ==

== ENCOUNTER 2021-09-05 02:48 | Day surgery (SDC) | payer OTHER | END 2021-09-05 23:06 | disposition home or self-care (01) | LOC: WOUND 02:48 | PROC: 0JBN0ZZ Excision of Right Lower Leg Subcutaneous Tissue and Fascia, Open Approach (ICD-10-PCS; principal; 2021-09-05) | DX: T87.89 Other complications of amputation stump (principal); L97.812 Non-pressure chronic ulcer of other part of right lower leg with fat layer exposed; E11.622 Type 2 diabetes mellitus with other skin ulcer; Z89.511 Acquired absence of right leg below knee; Y83.5 Amputation of limb(s) as the cause of abnormal reaction of the patient, or of later complication, without mention of misadventure at the time of the procedure | CPT/HCPCS: A9270 ==

== ENCOUNTER 2021-09-12 05:51 | Day surgery (SDC) | payer OTHER | END 2021-09-12 23:21 | disposition home or self-care (01) | LOC: WOUND 05:51 | PROC: 0JBN0ZZ Excision of Right Lower Leg Subcutaneous Tissue and Fascia, Open Approach (ICD-10-PCS; principal; 2021-09-12) | DX: T87.89 Other complications of amputation stump (principal); L97.812 Non-pressure chronic ulcer of other part of right lower leg with fat layer exposed; E11.622 Type 2 diabetes mellitus with other skin ulcer; Z89.511 Acquired absence of right leg below knee; Y83.5 Amputation of limb(s) as the cause of abnormal reaction of the patient, or of later complication, without mention of misadventure at the time of the procedure | CPT/HCPCS: A9270 ==

== ENCOUNTER 2021-09-26 05:15 | Day surgery (SDC) | payer OTHER | END 2021-09-26 23:45 | disposition home or self-care (01) | LOC: WOUND 05:15 | DX: E11.622 Type 2 diabetes mellitus with other skin ulcer (principal); L97.812 Non-pressure chronic ulcer of other part of right lower leg with fat layer exposed; T87.9 Unspecified complications of amputation stump | CPT/HCPCS: A9270 ==

== ENCOUNTER 2021-10-03 01:45 | Day surgery (SDC) | payer OTHER | END 2021-10-03 22:41 | disposition home or self-care (01) | LOC: WOUND 01:45 | DX: T87.89 Other complications of amputation stump (principal); Y83.5 Amputation of limb(s) as the cause of abnormal reaction of the patient, or of later complication, without mention of misadventure at the time of the procedure; E11.610 Type 2 diabetes mellitus with diabetic neuropathic arthropathy | CPT/HCPCS: A9270 ==

== ENCOUNTER 2021-10-10 00:41 | Day surgery (SDC) | payer OTHER | END 2021-10-10 23:08 | disposition home or self-care (01) | LOC: WOUND 00:41 | DX: T87.89 Other complications of amputation stump (principal); Z89.511 Acquired absence of right leg below knee; E11.9 Type 2 diabetes mellitus without complications | CPT/HCPCS: A9270 ==

== ENCOUNTER 2021-10-17 01:23 | Day surgery (SDC) | payer OTHER | END 2021-10-17 23:10 | disposition home or self-care (01) | LOC: WOUND 01:23 | DX: T87.89 Other complications of amputation stump (principal); E11.9 Type 2 diabetes mellitus without complications | CPT/HCPCS: A9270 ==

== ENCOUNTER 2021-10-24 03:17 | Day surgery (SDC) | payer OTHER | END 2021-10-25 03:00 | disposition home or self-care (01) | LOC: WOUND 03:17 | DX: T87.89 Other complications of amputation stump (principal); Z89.511 Acquired absence of right leg below knee; E11.9 Type 2 diabetes mellitus without complications | CPT/HCPCS: A9270 ==

== ENCOUNTER 2021-11-07 00:14 | Day surgery (SDC) | payer OTHER | END 2021-11-07 23:26 | disposition home or self-care (01) | LOC: WOUND 00:14 | DX: T87.89 Other complications of amputation stump (principal); E11.622 Type 2 diabetes mellitus with other skin ulcer; L97.812 Non-pressure chronic ulcer of other part of right lower leg with fat layer exposed; Y83.8 Other surgical procedures as the cause of abnormal reaction of the patient, or of later complication, without mention of misadventure at the time of the procedure | CPT/HCPCS: A9270 ==

== ENCOUNTER 2021-11-21 01:48 | Day surgery (SDC) | payer OTHER | END 2021-11-21 23:43 | disposition home or self-care (01) | LOC: WOUND 01:48 | DX: T87.89 Other complications of amputation stump (principal); E11.622 Type 2 diabetes mellitus with other skin ulcer; L97.812 Non-pressure chronic ulcer of other part of right lower leg with fat layer exposed | CPT/HCPCS: A9270 ==

== ENCOUNTER 2021-11-28 03:28 | Day surgery (SDC) | payer OTHER | END 2021-11-28 23:06 | disposition home or self-care (01) | LOC: WOUND 03:28 | DX: E11.622 Type 2 diabetes mellitus with other skin ulcer (principal); L97.812 Non-pressure chronic ulcer of other part of right lower leg with fat layer exposed; T87.9 Unspecified complications of amputation stump; Z89.511 Acquired absence of right leg below knee | CPT/HCPCS: A9270 ==

== ENCOUNTER 2021-12-05 01:02 | Day surgery (SDC) | payer OTHER | END 2021-12-05 23:26 | disposition home or self-care (01) | LOC: WOUND 01:02 | DX: E11.622 Type 2 diabetes mellitus with other skin ulcer (principal); L97.812 Non-pressure chronic ulcer of other part of right lower leg with fat layer exposed; T87.9 Unspecified complications of amputation stump | CPT/HCPCS: A9270 ==

== ENCOUNTER 2021-12-19 00:18 | Day surgery (SDC) | payer OTHER | END 2021-12-19 23:10 | disposition home or self-care (01) | LOC: WOUND 00:18 | DX: E11.622 Type 2 diabetes mellitus with other skin ulcer (principal); L97.812 Non-pressure chronic ulcer of other part of right lower leg with fat layer exposed; T87.9 Unspecified complications of amputation stump; Z89.511 Acquired absence of right leg below knee | CPT/HCPCS: A9270 ==

== ENCOUNTER 2022-01-02 01:26 | Day surgery (SDC) | payer OTHER | END 2022-01-02 23:29 | disposition home or self-care (01) | LOC: WOUND 01:26 | DX: E11.622 Type 2 diabetes mellitus with other skin ulcer (principal); L97.812 Non-pressure chronic ulcer of other part of right lower leg with fat layer exposed; T87.9 Unspecified complications of amputation stump | CPT/HCPCS: A9270 ==

== ENCOUNTER 2022-01-09 03:05 | Day surgery (SDC) | payer OTHER | END 2022-01-09 23:25 | disposition home or self-care (01) | LOC: WOUND 03:05 | DX: E11.622 Type 2 diabetes mellitus with other skin ulcer (principal); L97.812 Non-pressure chronic ulcer of other part of right lower leg with fat layer exposed; T87.81 Dehiscence of amputation stump; L97.828 Non-pressure chronic ulcer of other part of left lower leg with other specified severity | CPT/HCPCS: A9270 ==

== ENCOUNTER 2022-01-16 01:13 | Day surgery (SDC) | payer OTHER | END 2022-01-16 22:51 | disposition home or self-care (01) | LOC: WOUND 01:13 | DX: T87.89 Other complications of amputation stump (principal); E11.621 Type 2 diabetes mellitus with foot ulcer; I87.2 Venous insufficiency (chronic) (peripheral); L97.512 Non-pressure chronic ulcer of other part of right foot with fat layer exposed | CPT/HCPCS: A9270 ==

== ENCOUNTER 2022-01-23 00:42 | Day surgery (SDC) | payer OTHER | END 2022-01-23 22:58 | disposition home or self-care (01) | LOC: WOUND 00:42 | DX: T87.89 Other complications of amputation stump (principal); I87.2 Venous insufficiency (chronic) (peripheral); E11.622 Type 2 diabetes mellitus with other skin ulcer; L97.812 Non-pressure chronic ulcer of other part of right lower leg with fat layer exposed | CPT/HCPCS: A9270 ==

== ENCOUNTER 2022-01-30 02:23 | Day surgery (SDC) | payer OTHER | END 2022-01-30 23:59 | disposition home or self-care (01) | LOC: WOUND 02:23 | DX: T87.89 Other complications of amputation stump (principal); E11.622 Type 2 diabetes mellitus with other skin ulcer; L97.812 Non-pressure chronic ulcer of other part of right lower leg with fat layer exposed; I87.2 Venous insufficiency (chronic) (peripheral); E11.621 Type 2 diabetes mellitus with foot ulcer; L97.519 Non-pressure chronic ulcer of other part of right foot with unspecified severity | CPT/HCPCS: A9270 ==

== ENCOUNTER 2022-02-06 08:15 | Day surgery (SDC) | payer OTHER | END 2022-02-06 23:02 | disposition home or self-care (01) | LOC: WOUND 08:15 | DX: E11.622 Type 2 diabetes mellitus with other skin ulcer (principal); L97.812 Non-pressure chronic ulcer of other part of right lower leg with fat layer exposed; L97.822 Non-pressure chronic ulcer of other part of left lower leg with fat layer exposed; T87.9 Unspecified complications of amputation stump; I87.2 Venous insufficiency (chronic) (peripheral) | CPT/HCPCS: A9270; G0463 ==

== ENCOUNTER 2022-02-13 01:06 | Day surgery (SDC) | payer OTHER | END 2022-02-13 23:30 | disposition home or self-care (01) | LOC: WOUND 01:06 | DX: E11.622 Type 2 diabetes mellitus with other skin ulcer (principal); L97.812 Non-pressure chronic ulcer of other part of right lower leg with fat layer exposed; L97.822 Non-pressure chronic ulcer of other part of left lower leg with fat layer exposed; T87.9 Unspecified complications of amputation stump; I87.2 Venous insufficiency (chronic) (peripheral); E11.621 Type 2 diabetes mellitus with foot ulcer; L97.519 Non-pressure chronic ulcer of other part of right foot with unspecified severity | CPT/HCPCS: A9270 ==

== ENCOUNTER 2022-02-20 02:40 | Day surgery (SDC) | payer OTHER | END 2022-02-20 23:50 | disposition home or self-care (01) | LOC: WOUND 02:40 | DX: E11.621 Type 2 diabetes mellitus with foot ulcer (principal); L97.512 Non-pressure chronic ulcer of other part of right foot with fat layer exposed; L97.822 Non-pressure chronic ulcer of other part of left lower leg with fat layer exposed; T87.9 Unspecified complications of amputation stump; I87.2 Venous insufficiency (chronic) (peripheral) | CPT/HCPCS: Q4133 ==

== ENCOUNTER 2022-02-24 12:21 | Observation (INO) | payer OTHER ==
[~2022-02-24] VITALS: Ht 172.7 cm; Wt 136.1 kg
[2022-02-24 14:33] LABS: BASOPHILS ABSOLUTE AUTO 0.03 K/mm3 (0.00-0.23); BASOPHILS PERCENT AUTO 0 % (0-2); EOSINOPHILS ABSOLUTE AUTO 0.05 K/mm3 (0.00-0.68); EOSINOPHILS PERCENT AUTO 1 % (0-6); Hematocrit 44.3 % (37.0-53.0); IMMATURE GRAN ABSOLUTE AUTO 0.04 K/mm3 (0.00-0.10); IMMATURE GRAN PERCENT AUTO 0 % (0-1); LYMPHOCYTES PERCENT AUTO 13 % (21-46); MONOCYTES ABSOLUTE AUTO 1.11 K/mm3 (0.16-1.47); MONOCYTES PERCENT AUTO 11 % (4-13); Mean Corpuscular HGB 29.2 pg (26.0-34.0); Mean Corpuscular HGB Conc 33.9 g/dL (31.5-36.5); Mean Corpuscular Volume 86 fL (80-100); Mean Platelet Volume 10.5 fL (9.1-12.4); NEUTROPHILS ABSOLUTE AUTO 7.47 K/mm3 (1.96-9.15); NEUTROPHILS PERCENT AUTO 75 % (41-73); Platelet Count 398 K/mm3 (150-400); RDW Coefficient Variation 15.4 % (11.7-14.2); RDW Standard Deviation 47.8 fL (35.1-46.3); Red Blood Cell Count 5.13 M/mm3 (4.30-5.90)
[2022-02-24 14:46] LABS: Albumin, Blood 3.6 g/dL (3.4-5.0); Albumin/Globulin Ratio 0.8 (0.8-1.8); Bilirubin, Total 1.1 mg/dL (0.1-1.0); Calcium, Blood 9.1 mg/dL (8.5-10.1); Creatinine, Blood 1.09 mg/dL (0.60-1.20); Globulin, Blood 4.4 g/dL (2.2-4.0); Potassium, Blood 4.5 mmol/L (3.5-5.5)
[2022-02-24 15:24] LABS: Influenza A, PCR NEGATIVE (NEGATIVE); Influenza B, PCR NEGATIVE (NEGATIVE); Resp Syncytial Virus, PCR NEGATIVE (NEGATIVE); SARS-Cov-2 (COVID-19) PCR, MMC NEGATIVE (NEGATIVE)
[2022-02-25 04:33] LABS: Source, Urine Clean Catch
[2022-02-25 04:46] LABS: Bilirubin, Urine Neg (Neg); Blood, Urine Neg (Neg); Glucose Qualitative, Urine 4+ (Neg); Ketones, Urine Neg (Neg); Leukocyte Esterase, Urine Neg (Neg); Nitrite, Urine Neg (Neg); Protein, Urine Neg (Neg); Urobilinogen, Urine NORM (Normal)
[2022-02-25 05:07] LABS: Appearance, Urine Clear (Clear); Color, Urine Yellow (P-Yellow)
[2022-02-25 05:49] LABS: BASOPHILS ABSOLUTE AUTO 0.05 K/mm3 (0.00-0.23); BASOPHILS PERCENT AUTO 1 % (0-2); EOSINOPHILS ABSOLUTE AUTO 0.12 K/mm3 (0.00-0.68); EOSINOPHILS PERCENT AUTO 2 % (0-6); Hematocrit 42.2 % (37.0-53.0); Hemoglobin 13.8 g/dL (13.5-17.5); IMMATURE GRAN ABSOLUTE AUTO 0.02 K/mm3 (0.00-0.10); IMMATURE GRAN PERCENT AUTO 0 % (0-1); LYMPHOCYTES ABSOLUTE AUTO 1.55 K/mm3 (0.84-5.20); LYMPHOCYTES PERCENT AUTO 26 % (21-46); MONOCYTES ABSOLUTE AUTO 0.84 K/mm3 (0.16-1.47); MONOCYTES PERCENT AUTO 14 % (4-13); Mean Corpuscular HGB 29.6 pg (26.0-34.0); Mean Corpuscular HGB Conc 32.7 g/dL (31.5-36.5); Mean Corpuscular Volume 90 fL (80-100); Mean Platelet Volume 10.7 fL (9.1-12.4); NEUTROPHILS ABSOLUTE AUTO 3.38 K/mm3 (1.96-9.15); NEUTROPHILS PERCENT AUTO 57 % (41-73); Platelet Count 289 K/mm3 (150-400); RDW Coefficient Variation 15.8 % (11.7-14.2); RDW Standard Deviation 51.3 fL (35.1-46.3); Red Blood Cell Count 4.67 M/mm3 (4.30-5.90); White Blood Cell Count 5.96 K/mm3 (4.00-11.30)
[2022-02-25 06:17] LABS: CPK Creatine Kinase 151 U/L (39-308)
[2022-02-25 06:22] LABS: Alanine Aminotransfer (ALT/SGP 51 U/L (12-78); Albumin, Blood 3.3 g/dL (3.4-5.0); Albumin/Globulin Ratio 0.8 (0.8-1.8); Alk Phos 75 U/L (50-136); Anion Gap 11 mmol/L (6-16); Aspartate Aminotrans (AST/SGOT 46 U/L (12-37); Bilirubin, Total 1.2 mg/dL (0.1-1.0); Blood Urea Nitrogen 30 mg/dL (8-24); Bun/Creatinine Ratio 31.4 (12.0-20.0); CO2, Blood 24 mmol/L (21-32); Calcium, Blood 8.9 mg/dL (8.5-10.1); Chloride, Blood 99 mmol/L (98-108); Creatine Kinase MB <1.0 ng/mL (0.0-3.6); Creatine Kinase MB Index Unable to Calculate (0.0-4.0); Creatinine, Blood 0.95 mg/dL (0.60-1.20); Globulin, Blood 3.9 g/dL (2.2-4.0); Glomerular Filtration Rate 93 (60-); Glucose, Blood 139 mg/dL (70-99); Potassium, Blood 4.3 mmol/L (3.5-5.5); Sodium, Blood 134 mmol/L (136-145); Total Protein, Blood 7.2 g/dL (6.4-8.2)
--- NOTE | 2022-02-25 06:22 | NUR ---
SHIFT SUMMARY AOX4. FORGETFUL & CHILD LIKE RESPONSES. HX DEVELOP DELAY. ADMITTED FOR ELEVATED TROPONIN. VSS. TELE NSR c PVC @92. NO N/V OR PAIN. PT GOT TEARFUL & STATED "WHAT IS WRONG WITH ME?" MEANWHILE HAD TREMORS TO BUE WHICH STARTED RAPIDLY INCREASING ALONG c BREATHING RATE. LABOURED BREATHING, DYSPNEA, SWEATING, TREMORS & OTHER SX ONLY OCCURRED WHEN PT WAS CONCERNED OR WORRIED ABOUT HIS HEALTH, ACTED FEARFUL & ANXIOUS. R BKA STUMP HAS MEPILEX IN PLACE, PT WOULDNT LET THIS NURSE REMOVE, STATED DR HAGER PLACED & TOLD NOT TO REMOVE FOR 7 DAYS. CLEANSED L PRAKASH, REAPPLED NEW BANDAGE & TOOK PIC. +1 EDEMA TO BLE. CALL LIGHT IN REACH & PT ABLE TO MAKE NEEDS KNOWN.
[2022-02-25 13:36] LABS: CPK Creatine Kinase 125 U/L (39-308); Creatine Kinase MB <1.0 ng/mL (0.0-3.6); Creatine Kinase MB Index Unable to Calculate (0.0-4.0)
[2022-02-25] MEDS ORDERED: HYDPAM25 PO (16:02)
--- NOTE | 2022-02-25 18:48 | NUR ---
SUMM- PT A/O X4- DEV DELAY. PLEASANT AND COOPERATIVE USES CALL LIGHT. UP IN THE CHAIR FOR LUNCH. ABLE TO USE HIS GOOD LEG AND GRAB BOTH ARMS AND PULL HIMSELF TO CHAIR SBA WITH NO ASSIST. ALSO USES URINAL STANDING ON GOOD LEG AND BALANCING WITH BKA. HAD TREMORS INTERMITTANT THIS AM. SEEMED TO TURN ON/OFF AT WILL . HYDRALAZINE ADMIN AND SOON AFTER PT STATED "THAT PILL MUST HAVE CURED ME". NO TREMORS SINCE THIS AM. HAD DC ORDERS, BUT DELAYED PT'S NEIGHBOR NOT AVAIL TO GET HIM THE RAQUEL.
--- NOTE | 2022-02-26 06:11 | NUR ---
56 year old MAle with Dev delay has minimal intention tremor & is tolerating diet & activity. He has daily caregivers for several hours daily at home & reported inhalation therapy aides teacher involved in dc plan. Day shift reports they were unable to reach next door neighbor who was supposed to provide transport & let PT into apartment. DR Henao informed of delayed DC tele had been DC on day shift. PT has rt BKA skin graph present rt stump placed about a week ago. Plans to dc home with caregivers today. Denies pain or acute distress some mild anxiety.
--- NOTE | 2022-02-26 11:53 | NUR ---
PT DISCHARGED WITH INSTRUCTIONS. GIRLFRIEND CAME TO [employer]. WHEELCHAIR TRANSPORT OUT TO CAR. WAS ABLE TO GET MATHEWS AND WILL BE ABLE TO GET INTO HIS HOUSE.
== END 2022-02-26 10:57 | disposition home or self-care (01) ==
LOC: ER 12:21 → MEDS 19:01
PROVIDERS: Emergency Medicine; Physician Assistant; ADMIT Internal Medicine
DX: R07.89 Other chest pain (principal); R79.89 Other specified abnormal findings of blood chemistry; T87.89 Other complications of amputation stump; E11.9 Type 2 diabetes mellitus without complications; R25.1 Tremor, unspecified; F41.9 Anxiety disorder, unspecified; I10 Essential (primary) hypertension; I25.2 Old myocardial infarction; I25.10 Atherosclerotic heart disease of native coronary artery without angina pectoris; E78.5 Hyperlipidemia, unspecified; E66.9 Obesity, unspecified; Z68.42 Body mass index [BMI] 45.0-49.9, adult; Z89.511 Acquired absence of right leg below knee; Z91.040 Latex allergy status; Z91.048 Other nonmedicinal substance allergy status; Z79.4 Long term (current) use of insulin; Z20.822 Contact with and (suspected) exposure to COVID-19
CPT/HCPCS: 0241U; 36415; 71045; 80053; 81003; 82550; 82553; 82947; 83880; 84484; 85025; 93005; 93010; 93306; 99285-25; A9270; J1650; J1815; J2405; Q0177

== ENCOUNTER → 2022-02-27 | Day surgery (SDC) | payer OTHER ==
[~2022-02-27] MED LIST changes: +HYDPAM25 PO
== END ==
LOC: WOUND 01:28
DX: E11.622 Type 2 diabetes mellitus with other skin ulcer (principal); L97.822 Non-pressure chronic ulcer of other part of left lower leg with fat layer exposed; T87.89 Other complications of amputation stump; L97.812 Non-pressure chronic ulcer of other part of right lower leg with fat layer exposed; I87.2 Venous insufficiency (chronic) (peripheral)
CPT/HCPCS: A9270; Q4133

== ENCOUNTER 2022-03-06 03:57 | Day surgery (SDC) | payer OTHER | END 2022-03-06 23:20 | disposition home or self-care (01) | LOC: WOUND 03:57 | DX: E11.622 Type 2 diabetes mellitus with other skin ulcer (principal); L97.822 Non-pressure chronic ulcer of other part of left lower leg with fat layer exposed; L97.812 Non-pressure chronic ulcer of other part of right lower leg with fat layer exposed; T87.9 Unspecified complications of amputation stump; I87.2 Venous insufficiency (chronic) (peripheral) | CPT/HCPCS: A9270 ==

== ENCOUNTER 2022-03-13 00:29 | Day surgery (SDC) | payer OTHER | END 2022-03-13 22:51 | disposition home or self-care (01) | LOC: WOUND 00:29 | DX: E11.622 Type 2 diabetes mellitus with other skin ulcer (principal); L97.812 Non-pressure chronic ulcer of other part of right lower leg with fat layer exposed; L97.822 Non-pressure chronic ulcer of other part of left lower leg with fat layer exposed; T87.9 Unspecified complications of amputation stump; I87.2 Venous insufficiency (chronic) (peripheral) | CPT/HCPCS: A9270 ==

== ENCOUNTER 2022-03-20 01:36 | Day surgery (SDC) | payer OTHER | END 2022-03-20 22:48 | disposition home or self-care (01) | LOC: WOUND 01:36 | DX: T87.89 Other complications of amputation stump (principal); E11.621 Type 2 diabetes mellitus with foot ulcer; L97.519 Non-pressure chronic ulcer of other part of right foot with unspecified severity; L97.822 Non-pressure chronic ulcer of other part of left lower leg with fat layer exposed; I87.2 Venous insufficiency (chronic) (peripheral) | CPT/HCPCS: A9270; Q4133 ==

== ENCOUNTER 2022-03-27 08:00 | Day surgery (SDC) | payer OTHER | END 2022-03-27 23:59 | disposition home or self-care (01) | LOC: WOUND 08:00 | DX: T87.89 Other complications of amputation stump (principal); L97.812 Non-pressure chronic ulcer of other part of right lower leg with fat layer exposed; L97.822 Non-pressure chronic ulcer of other part of left lower leg with fat layer exposed; I87.2 Venous insufficiency (chronic) (peripheral); E11.622 Type 2 diabetes mellitus with other skin ulcer | CPT/HCPCS: A9270 ==

== ENCOUNTER 2022-04-03 03:44 | Day surgery (SDC) | payer OTHER | END 2022-04-03 23:59 | disposition home or self-care (01) | LOC: WOUND 03:44 | DX: L97.812 Non-pressure chronic ulcer of other part of right lower leg with fat layer exposed (principal); T87.89 Other complications of amputation stump; E11.622 Type 2 diabetes mellitus with other skin ulcer; I87.2 Venous insufficiency (chronic) (peripheral) | CPT/HCPCS: A9270; Q4133 ==

== ENCOUNTER → 2022-04-10 | Day surgery (SDC) | payer OTHER | LOC: WOUND 02:33 | DX: E11.622 Type 2 diabetes mellitus with other skin ulcer (principal); L97.812 Non-pressure chronic ulcer of other part of right lower leg with fat layer exposed; L97.822 Non-pressure chronic ulcer of other part of left lower leg with fat layer exposed; T87.89 Other complications of amputation stump; Y83.8 Other surgical procedures as the cause of abnormal reaction of the patient, or of later complication, without mention of misadventure at the time of the procedure; I87.2 Venous insufficiency (chronic) (peripheral) | CPT/HCPCS: A9270; Q4133 ==

== ENCOUNTER 2022-04-17 01:01 | Day surgery (SDC) | payer OTHER | END 2022-04-17 23:40 | disposition home or self-care (01) | LOC: WOUND 01:01 | DX: T87.89 Other complications of amputation stump (principal); E11.622 Type 2 diabetes mellitus with other skin ulcer; L97.822 Non-pressure chronic ulcer of other part of left lower leg with fat layer exposed; L97.812 Non-pressure chronic ulcer of other part of right lower leg with fat layer exposed; I87.2 Venous insufficiency (chronic) (peripheral) | CPT/HCPCS: A9270; G0463; Q4133 ==

== ENCOUNTER 2022-05-01 08:00 | Day surgery (SDC) | payer OTHER | END 2022-05-01 23:59 | disposition home or self-care (01) | LOC: WOUND 08:00 | DX: T87.89 Other complications of amputation stump (principal); E11.622 Type 2 diabetes mellitus with other skin ulcer; L97.812 Non-pressure chronic ulcer of other part of right lower leg with fat layer exposed; I87.2 Venous insufficiency (chronic) (peripheral); L97.822 Non-pressure chronic ulcer of other part of left lower leg with fat layer exposed | CPT/HCPCS: A9270; Q4133 ==

== ENCOUNTER 2022-05-08 01:04 | Day surgery (SDC) | payer OTHER | END 2022-05-08 23:46 | disposition home or self-care (01) | LOC: WOUND 01:04 | DX: T87.89 Other complications of amputation stump (principal); L97.812 Non-pressure chronic ulcer of other part of right lower leg with fat layer exposed; I87.2 Venous insufficiency (chronic) (peripheral) | CPT/HCPCS: A9270; Q4133 ==

== ENCOUNTER 2022-05-15 02:02 | Day surgery (SDC) | payer OTHER | END 2022-05-15 23:49 | disposition home or self-care (01) | LOC: WOUND 02:02 | DX: E11.622 Type 2 diabetes mellitus with other skin ulcer (principal); L97.812 Non-pressure chronic ulcer of other part of right lower leg with fat layer exposed; T87.9 Unspecified complications of amputation stump; I87.2 Venous insufficiency (chronic) (peripheral) | CPT/HCPCS: A9270; Q4133 ==

== ENCOUNTER 2022-05-22 03:24 | Day surgery (SDC) | payer OTHER | END 2022-05-22 23:19 | disposition home or self-care (01) | LOC: WOUND 03:24 | DX: T87.89 Other complications of amputation stump (principal); I87.2 Venous insufficiency (chronic) (peripheral); L97.812 Non-pressure chronic ulcer of other part of right lower leg with fat layer exposed | CPT/HCPCS: A9270; G0463 ==

== ENCOUNTER 2022-05-29 06:28 | Day surgery (SDC) | payer OTHER | END 2022-05-29 23:39 | disposition home or self-care (01) | LOC: WOUND 06:28 | DX: T87.89 Other complications of amputation stump (principal); E11.622 Type 2 diabetes mellitus with other skin ulcer; L97.812 Non-pressure chronic ulcer of other part of right lower leg with fat layer exposed; I87.2 Venous insufficiency (chronic) (peripheral) | CPT/HCPCS: A9270; G0463 ==

== ENCOUNTER 2022-06-05 07:50 | Day surgery (SDC) | payer OTHER | END 2022-06-05 23:45 | disposition home or self-care (01) | LOC: WOUND 07:50 | DX: T87.89 Other complications of amputation stump (principal); E11.622 Type 2 diabetes mellitus with other skin ulcer; L97.822 Non-pressure chronic ulcer of other part of left lower leg with fat layer exposed; L97.812 Non-pressure chronic ulcer of other part of right lower leg with fat layer exposed; I87.2 Venous insufficiency (chronic) (peripheral) | CPT/HCPCS: A9270; G0463 ==

== ENCOUNTER 2022-06-26 02:00 | Day surgery (SDC) | payer OTHER | END 2022-06-26 23:42 | disposition home or self-care (01) | LOC: WOUND 02:00 | DX: T87.9 Unspecified complications of amputation stump (principal); E11.622 Type 2 diabetes mellitus with other skin ulcer; L97.812 Non-pressure chronic ulcer of other part of right lower leg with fat layer exposed; I87.2 Venous insufficiency (chronic) (peripheral) | CPT/HCPCS: G0463 ==

== ENCOUNTER 2022-07-03 04:09 | Day surgery (SDC) | payer OTHER | END 2022-07-03 22:58 | disposition home or self-care (01) | LOC: WOUND 04:09 | DX: E11.622 Type 2 diabetes mellitus with other skin ulcer (principal); L97.812 Non-pressure chronic ulcer of other part of right lower leg with fat layer exposed; T87.89 Other complications of amputation stump; I87.2 Venous insufficiency (chronic) (peripheral); Z89.511 Acquired absence of right leg below knee | CPT/HCPCS: A9270 ==

== ENCOUNTER 2022-07-10 02:27 | Day surgery (SDC) | payer OTHER | END 2022-07-10 23:01 | disposition home or self-care (01) | LOC: WOUND 02:27 | DX: E11.622 Type 2 diabetes mellitus with other skin ulcer (principal); L97.812 Non-pressure chronic ulcer of other part of right lower leg with fat layer exposed; T87.9 Unspecified complications of amputation stump; I87.2 Venous insufficiency (chronic) (peripheral) | CPT/HCPCS: A9270 ==

== ENCOUNTER 2022-07-17 02:08 | Day surgery (SDC) | payer OTHER | END 2022-07-17 22:55 | disposition home or self-care (01) | LOC: WOUND 02:08 | DX: T87.89 Other complications of amputation stump (principal); E11.622 Type 2 diabetes mellitus with other skin ulcer; L97.812 Non-pressure chronic ulcer of other part of right lower leg with fat layer exposed; I87.2 Venous insufficiency (chronic) (peripheral) | CPT/HCPCS: A9270 ==

== ENCOUNTER 2022-07-24 01:35 | Day surgery (SDC) | payer OTHER | END 2022-07-24 23:47 | disposition home or self-care (01) | LOC: WOUND 01:35 | DX: T87.89 Other complications of amputation stump (principal); L97.812 Non-pressure chronic ulcer of other part of right lower leg with fat layer exposed; E11.622 Type 2 diabetes mellitus with other skin ulcer; I87.2 Venous insufficiency (chronic) (peripheral) | CPT/HCPCS: A9270 ==

== ENCOUNTER 2022-07-31 02:30 | Day surgery (SDC) | payer OTHER | END 2022-07-31 23:27 | disposition home or self-care (01) | LOC: WOUND 02:30 | DX: E11.622 Type 2 diabetes mellitus with other skin ulcer (principal); L97.812 Non-pressure chronic ulcer of other part of right lower leg with fat layer exposed; I87.2 Venous insufficiency (chronic) (peripheral); T87.89 Other complications of amputation stump | CPT/HCPCS: A9270 ==

== ENCOUNTER 2022-08-07 00:43 | Day surgery (SDC) | payer OTHER | END 2022-08-07 23:39 | disposition home or self-care (01) | LOC: WOUND 00:43 | DX: T87.89 Other complications of amputation stump (principal); L97.812 Non-pressure chronic ulcer of other part of right lower leg with fat layer exposed; I87.2 Venous insufficiency (chronic) (peripheral); Y84.8 Other medical procedures as the cause of abnormal reaction of the patient, or of later complication, without mention of misadventure at the time of the procedure | CPT/HCPCS: A9270 ==

== ENCOUNTER 2022-08-09 21:56 | Observation (INO) | payer OTHER ==
[~2022-08-09] VITALS: Ht 165.1 cm; Wt 127.0 kg
[2022-08-09 23:41] LABS: BASOPHILS ABSOLUTE AUTO 0.05 K/mm3 (0.00-0.23); BASOPHILS PERCENT AUTO 1 % (0-2); EOSINOPHILS ABSOLUTE AUTO 0.31 K/mm3 (0.00-0.68); EOSINOPHILS PERCENT AUTO 3 % (0-6); Hematocrit 36.9 % (37.0-53.0); Hemoglobin 12.2 g/dL (13.5-17.5); IMMATURE GRAN ABSOLUTE AUTO 0.11 K/mm3 (0.00-0.10); IMMATURE GRAN PERCENT AUTO 1 % (0-1); LYMPHOCYTES ABSOLUTE AUTO 3.24 K/mm3 (0.84-5.20); LYMPHOCYTES PERCENT AUTO 31 % (21-46); MONOCYTES PERCENT AUTO 11 % (4-13); Mean Corpuscular HGB 29.4 pg (26.0-34.0); Mean Corpuscular HGB Conc 33.1 g/dL (31.5-36.5); Mean Corpuscular Volume 89 fL (80-100); Mean Platelet Volume 10.2 fL (9.1-12.4); NEUTROPHILS ABSOLUTE AUTO 5.58 K/mm3 (1.96-9.15); NEUTROPHILS PERCENT AUTO 53 % (41-73); Platelet Count 346 K/mm3 (150-400); RDW Coefficient Variation 14.1 % (11.7-14.2); RDW Standard Deviation 45.6 fL (35.1-46.3); Red Blood Cell Count 4.15 M/mm3 (4.30-5.90); White Blood Cell Count 10.49 K/mm3 (4.00-11.30)
[2022-08-10 00:02] LABS: Ethanol (Alcohol), Blood, Med 218 mg/dL; Salicylate <1.7 mg/dL (2.8-20.0)
[2022-08-10 00:08] LABS: Alanine Aminotransfer (ALT/SGP 46 U/L (12-78); Albumin, Blood 3.2 g/dL (3.4-5.0); Albumin/Globulin Ratio 0.9 (0.8-1.8); Alk Phos 64 U/L (50-136); Anion Gap 20 mmol/L (6-16); Aspartate Aminotrans (AST/SGOT 22 U/L (12-37); Bilirubin, Total 0.4 mg/dL (0.1-1.0); Blood Urea Nitrogen 38 mg/dL (8-24); Bun/Creatinine Ratio 23.6 (12.0-20.0); CO2, Blood 17 mmol/L (21-32); Calcium, Blood 8.5 mg/dL (8.5-10.1); Chloride, Blood 94 mmol/L (98-108); Creatinine, Blood 1.61 mg/dL (0.60-1.20); Globulin, Blood 3.5 g/dL (2.2-4.0); Glomerular Filtration Rate 50 (60-); Glucose, Blood 181 mg/dL (70-99); Potassium, Blood 3.6 mmol/L (3.5-5.5); Sodium, Blood 131 mmol/L (136-145); Total Protein, Blood 6.7 g/dL (6.4-8.2)
[2022-08-10 00:09] LABS: Acetaminophen, Random <2.0 ug/mL (10.0-30.0)
== END 2022-08-10 09:49 | disposition home or self-care (01) ==
LOC: ER 21:56 → EOR 21:57
PROVIDERS: ADMIT Emergency Medicine
DX: S66.822A Laceration of other specified muscles, fascia and tendons at wrist and hand level, left hand, initial encounter (principal); S61.412A Laceration without foreign body of left hand, initial encounter; F10.129 Alcohol abuse with intoxication, unspecified; E11.9 Type 2 diabetes mellitus without complications; I10 Essential (primary) hypertension; E78.00 Pure hypercholesterolemia, unspecified; I25.2 Old myocardial infarction; I25.10 Atherosclerotic heart disease of native coronary artery without angina pectoris; F17.220 Nicotine dependence, chewing tobacco, uncomplicated; Y33.XXXA Other specified events, undetermined intent, initial encounter; Z89.511 Acquired absence of right leg below knee; Z91.040 Latex allergy status; Z79.4 Long term (current) use of insulin; Z79.82 Long term (current) use of aspirin
CPT/HCPCS: 73100; 80053; 82947; 84484; 85025; 93005; 93010; A9270; G0480

== ENCOUNTER 2022-08-14 01:08 | Day surgery (SDC) | payer OTHER | END 2022-08-14 23:16 | disposition home or self-care (01) | LOC: WOUND 01:08 | DX: T87.89 Other complications of amputation stump (principal); Y84.8 Other medical procedures as the cause of abnormal reaction of the patient, or of later complication, without mention of misadventure at the time of the procedure; E11.622 Type 2 diabetes mellitus with other skin ulcer; L97.812 Non-pressure chronic ulcer of other part of right lower leg with fat layer exposed; I87.2 Venous insufficiency (chronic) (peripheral) | CPT/HCPCS: A9270 ==

== ENCOUNTER 2022-08-21 02:25 | Day surgery (SDC) | payer OTHER | END 2022-08-21 23:07 | disposition home or self-care (01) | LOC: WOUND 02:25 | DX: T87.89 Other complications of amputation stump (principal); Z89.511 Acquired absence of right leg below knee; E11.622 Type 2 diabetes mellitus with other skin ulcer; L97.812 Non-pressure chronic ulcer of other part of right lower leg with fat layer exposed; I87.2 Venous insufficiency (chronic) (peripheral) | CPT/HCPCS: A9270; G0463 ==

== ENCOUNTER 2022-08-28 05:55 | Day surgery (SDC) | payer OTHER | END 2022-08-28 23:08 | disposition home or self-care (01) | LOC: WOUND 05:55 | DX: T87.89 Other complications of amputation stump (principal); Z89.511 Acquired absence of right leg below knee; E11.622 Type 2 diabetes mellitus with other skin ulcer; I87.2 Venous insufficiency (chronic) (peripheral); L97.812 Non-pressure chronic ulcer of other part of right lower leg with fat layer exposed | CPT/HCPCS: A9270; G0463 ==

== ENCOUNTER 2022-09-04 01:41 | Day surgery (SDC) | payer OTHER | END 2022-09-04 22:59 | disposition home or self-care (01) | LOC: WOUND 01:41 | DX: T87.9 Unspecified complications of amputation stump (principal); Y83.8 Other surgical procedures as the cause of abnormal reaction of the patient, or of later complication, without mention of misadventure at the time of the procedure; E11.621 Type 2 diabetes mellitus with foot ulcer; L97.812 Non-pressure chronic ulcer of other part of right lower leg with fat layer exposed; I87.2 Venous insufficiency (chronic) (peripheral) | CPT/HCPCS: A9270; G0463 ==

== ENCOUNTER 2022-09-11 00:50 | Day surgery (SDC) | payer OTHER | END 2022-09-12 00:04 | disposition home or self-care (01) | LOC: WOUND 00:50 | DX: T87.89 Other complications of amputation stump (principal); E11.622 Type 2 diabetes mellitus with other skin ulcer; L97.812 Non-pressure chronic ulcer of other part of right lower leg with fat layer exposed; I87.2 Venous insufficiency (chronic) (peripheral) | CPT/HCPCS: G0463 ==

== ENCOUNTER 2022-09-18 01:00 | Day surgery (SDC) | payer OTHER | END 2022-09-18 22:44 | disposition home or self-care (01) | LOC: WOUND 01:00 | DX: E11.622 Type 2 diabetes mellitus with other skin ulcer (principal); L97.812 Non-pressure chronic ulcer of other part of right lower leg with fat layer exposed; T87.9 Unspecified complications of amputation stump | CPT/HCPCS: G0463 ==

== ENCOUNTER 2022-09-26 04:10 | Day surgery (SDC) | payer OTHER | END 2022-09-26 22:53 | disposition home or self-care (01) | LOC: WOUND 04:10 | DX: T87.89 Other complications of amputation stump (principal); E11.622 Type 2 diabetes mellitus with other skin ulcer; L97.812 Non-pressure chronic ulcer of other part of right lower leg with fat layer exposed; I87.2 Venous insufficiency (chronic) (peripheral) | CPT/HCPCS: A9270 ==

== ENCOUNTER 2022-10-03 09:37 | Day surgery (SDC) | payer OTHER | END 2022-10-03 22:55 | disposition home or self-care (01) | LOC: WOUND 09:37 | DX: E11.622 Type 2 diabetes mellitus with other skin ulcer (principal); L98.492 Non-pressure chronic ulcer of skin of other sites with fat layer exposed ==

== ENCOUNTER 2022-10-07 03:12 | Day surgery (SDC) | payer OTHER | END 2022-10-07 23:12 | disposition home or self-care (01) | LOC: WOUND 03:12 | DX: E11.622 Type 2 diabetes mellitus with other skin ulcer (principal); L97.812 Non-pressure chronic ulcer of other part of right lower leg with fat layer exposed; T87.9 Unspecified complications of amputation stump; I87.2 Venous insufficiency (chronic) (peripheral) | CPT/HCPCS: A9270 ==

== ENCOUNTER 2022-10-16 01:36 | Day surgery (SDC) | payer OTHER | END 2022-10-16 22:58 | disposition home or self-care (01) | LOC: WOUND 01:36 | DX: E11.622 Type 2 diabetes mellitus with other skin ulcer (principal); L97.812 Non-pressure chronic ulcer of other part of right lower leg with fat layer exposed; T87.9 Unspecified complications of amputation stump; I87.2 Venous insufficiency (chronic) (peripheral) | CPT/HCPCS: A9270; G0463 ==

== ENCOUNTER 2022-10-30 00:38 | Day surgery (SDC) | payer OTHER | END 2022-10-30 22:55 | disposition home or self-care (01) | LOC: WOUND 00:38 | DX: T87.89 Other complications of amputation stump (principal); E11.622 Type 2 diabetes mellitus with other skin ulcer; L97.812 Non-pressure chronic ulcer of other part of right lower leg with fat layer exposed; I87.2 Venous insufficiency (chronic) (peripheral) | CPT/HCPCS: G0463 ==

== ENCOUNTER 2022-11-06 08:00 | Day surgery (SDC) | payer OTHER | END 2022-11-06 23:59 | disposition home or self-care (01) | LOC: WOUND 08:00 | DX: E11.622 Type 2 diabetes mellitus with other skin ulcer (principal); I87.2 Venous insufficiency (chronic) (peripheral); L97.812 Non-pressure chronic ulcer of other part of right lower leg with fat layer exposed; T87.9 Unspecified complications of amputation stump | CPT/HCPCS: A9270; G0463 ==

== ENCOUNTER 2022-11-13 00:33 | Day surgery (SDC) | payer OTHER | END 2022-11-13 23:33 | disposition home or self-care (01) | LOC: WOUND 00:33 | DX: E11.622 Type 2 diabetes mellitus with other skin ulcer (principal); L97.812 Non-pressure chronic ulcer of other part of right lower leg with fat layer exposed; L97.822 Non-pressure chronic ulcer of other part of left lower leg with fat layer exposed; T87.89 Other complications of amputation stump; I87.2 Venous insufficiency (chronic) (peripheral) | CPT/HCPCS: A9270; G0463 ==

== ENCOUNTER 2022-11-20 00:50 | Day surgery (SDC) | payer OTHER | END 2022-11-20 22:51 | disposition home or self-care (01) | LOC: WOUND 00:50 | DX: T87.89 Other complications of amputation stump (principal); L97.822 Non-pressure chronic ulcer of other part of left lower leg with fat layer exposed; I87.2 Venous insufficiency (chronic) (peripheral); E11.622 Type 2 diabetes mellitus with other skin ulcer | CPT/HCPCS: A9270 ==

== ENCOUNTER 2022-11-27 02:43 | Day surgery (SDC) | payer OTHER | END 2022-11-27 23:23 | disposition home or self-care (01) | LOC: WOUND 02:43 | DX: T87.89 Other complications of amputation stump (principal); E11.622 Type 2 diabetes mellitus with other skin ulcer; L97.822 Non-pressure chronic ulcer of other part of left lower leg with fat layer exposed; I87.2 Venous insufficiency (chronic) (peripheral) | CPT/HCPCS: A9270; G0463 ==

== ENCOUNTER 2022-12-04 02:22 | Day surgery (SDC) | payer OTHER | END 2022-12-04 22:41 | disposition home or self-care (01) | LOC: WOUND 02:22 | DX: E11.622 Type 2 diabetes mellitus with other skin ulcer (principal); L97.812 Non-pressure chronic ulcer of other part of right lower leg with fat layer exposed; L97.822 Non-pressure chronic ulcer of other part of left lower leg with fat layer exposed; T87.9 Unspecified complications of amputation stump; I87.2 Venous insufficiency (chronic) (peripheral) | CPT/HCPCS: A9270; G0463 ==

== ENCOUNTER 2022-12-11 00:47 | Day surgery (SDC) | payer OTHER | END 2022-12-11 23:32 | disposition home or self-care (01) | LOC: WOUND 00:47 | DX: T87.89 Other complications of amputation stump (principal); E11.622 Type 2 diabetes mellitus with other skin ulcer; L97.812 Non-pressure chronic ulcer of other part of right lower leg with fat layer exposed; I87.2 Venous insufficiency (chronic) (peripheral) | CPT/HCPCS: A9270; G0463 ==

== ENCOUNTER 2022-12-25 02:18 | Day surgery (SDC) | payer OTHER | END 2022-12-25 23:06 | disposition home or self-care (01) | LOC: WOUND 02:18 | DX: T87.89 Other complications of amputation stump (principal); E11.622 Type 2 diabetes mellitus with other skin ulcer; L97.822 Non-pressure chronic ulcer of other part of left lower leg with fat layer exposed; L97.812 Non-pressure chronic ulcer of other part of right lower leg with fat layer exposed; I87.2 Venous insufficiency (chronic) (peripheral) | CPT/HCPCS: A9270; G0463 ==

== ENCOUNTER 2023-01-01 02:38 | Day surgery (SDC) | payer OTHER | END 2023-01-01 22:57 | disposition home or self-care (01) | LOC: WOUND 02:38 | DX: E11.622 Type 2 diabetes mellitus with other skin ulcer (principal); L97.812 Non-pressure chronic ulcer of other part of right lower leg with fat layer exposed; L97.829 Non-pressure chronic ulcer of other part of left lower leg with unspecified severity; T87.9 Unspecified complications of amputation stump; I87.2 Venous insufficiency (chronic) (peripheral); S81.802A Unspecified open wound, left lower leg, initial encounter; X58.XXXA Exposure to other specified factors, initial encounter | CPT/HCPCS: A9270; G0463 ==

== ENCOUNTER 2023-01-08 01:15 | Day surgery (SDC) | payer OTHER | END 2023-01-08 23:06 | disposition home or self-care (01) | LOC: WOUND 01:15 | DX: T87.89 Other complications of amputation stump (principal); E11.622 Type 2 diabetes mellitus with other skin ulcer; L97.812 Non-pressure chronic ulcer of other part of right lower leg with fat layer exposed; L97.822 Non-pressure chronic ulcer of other part of left lower leg with fat layer exposed; I87.2 Venous insufficiency (chronic) (peripheral) | CPT/HCPCS: A9270; G0463 ==

== ENCOUNTER → 2023-01-13 | Outpatient (CLI) | payer OTHER | LOC: LAB 15:20 → LAB SHORT 15:20 | DX: E11.622 Type 2 diabetes mellitus with other skin ulcer (principal); L98.499 Non-pressure chronic ulcer of skin of other sites with unspecified severity | CPT/HCPCS: 83036 ==

== ENCOUNTER 2023-01-15 02:35 | Day surgery (SDC) | payer OTHER | END 2023-01-15 23:34 | disposition home or self-care (01) | LOC: WOUND 02:35 | DX: E11.622 Type 2 diabetes mellitus with other skin ulcer (principal); L97.812 Non-pressure chronic ulcer of other part of right lower leg with fat layer exposed; T87.9 Unspecified complications of amputation stump; I87.2 Venous insufficiency (chronic) (peripheral) | CPT/HCPCS: A9270; G0463 ==

== ENCOUNTER 2023-01-29 05:43 | Day surgery (SDC) | payer OTHER | END 2023-01-29 23:09 | disposition home or self-care (01) | LOC: WOUND 05:43 | DX: E11.622 Type 2 diabetes mellitus with other skin ulcer (principal); L97.812 Non-pressure chronic ulcer of other part of right lower leg with fat layer exposed; T87.9 Unspecified complications of amputation stump; I87.2 Venous insufficiency (chronic) (peripheral) | CPT/HCPCS: G0463 ==

== ENCOUNTER 2023-02-05 00:31 | Day surgery (SDC) | payer OTHER | END 2023-02-05 23:11 | disposition home or self-care (01) | LOC: WOUND 00:31 | DX: E11.622 Type 2 diabetes mellitus with other skin ulcer (principal); L97.812 Non-pressure chronic ulcer of other part of right lower leg with fat layer exposed; T87.9 Unspecified complications of amputation stump; Y83.8 Other surgical procedures as the cause of abnormal reaction of the patient, or of later complication, without mention of misadventure at the time of the procedure; I87.2 Venous insufficiency (chronic) (peripheral) ==

== ENCOUNTER 2023-02-12 00:41 | Day surgery (SDC) | payer OTHER | END 2023-02-12 23:04 | disposition home or self-care (01) | LOC: WOUND 00:41 | DX: T87.9 Unspecified complications of amputation stump (principal); E11.622 Type 2 diabetes mellitus with other skin ulcer; L97.812 Non-pressure chronic ulcer of other part of right lower leg with fat layer exposed; I87.2 Venous insufficiency (chronic) (peripheral); Y83.9 Surgical procedure, unspecified as the cause of abnormal reaction of the patient, or of later complication, without mention of misadventure at the time of the procedure | CPT/HCPCS: A9270 ==

== ENCOUNTER 2023-02-19 03:43 | Day surgery (SDC) | payer OTHER | END 2023-02-19 23:09 | disposition home or self-care (01) | LOC: WOUND 03:43 | DX: E11.622 Type 2 diabetes mellitus with other skin ulcer (principal); L97.812 Non-pressure chronic ulcer of other part of right lower leg with fat layer exposed; T87.9 Unspecified complications of amputation stump; I87.2 Venous insufficiency (chronic) (peripheral) | CPT/HCPCS: A9270 ==

== ENCOUNTER 2023-02-26 03:17 | Day surgery (SDC) | payer OTHER | END 2023-02-26 22:48 | disposition home or self-care (01) | LOC: WOUND 03:17 | DX: T87.89 Other complications of amputation stump (principal); I87.2 Venous insufficiency (chronic) (peripheral); E11.622 Type 2 diabetes mellitus with other skin ulcer; L97.812 Non-pressure chronic ulcer of other part of right lower leg with fat layer exposed | CPT/HCPCS: A9270 ==

== ENCOUNTER 2023-03-26 04:32 | Day surgery (SDC) | payer OTHER | END 2023-03-26 22:53 | disposition home or self-care (01) | LOC: WOUND 04:32 | DX: E11.622 Type 2 diabetes mellitus with other skin ulcer (principal); I87.312 Chronic venous hypertension (idiopathic) with ulcer of left lower extremity; L98.492 Non-pressure chronic ulcer of skin of other sites with fat layer exposed; L97.829 Non-pressure chronic ulcer of other part of left lower leg with unspecified severity; L97.812 Non-pressure chronic ulcer of other part of right lower leg with fat layer exposed; T87.9 Unspecified complications of amputation stump; I87.2 Venous insufficiency (chronic) (peripheral) | CPT/HCPCS: A9270 ==

== ENCOUNTER 2023-04-02 01:57 | Day surgery (SDC) | payer OTHER | END 2023-04-02 22:55 | disposition home or self-care (01) | LOC: WOUND 01:57 | DX: E11.622 Type 2 diabetes mellitus with other skin ulcer (principal); L98.492 Non-pressure chronic ulcer of skin of other sites with fat layer exposed; L97.812 Non-pressure chronic ulcer of other part of right lower leg with fat layer exposed; I87.312 Chronic venous hypertension (idiopathic) with ulcer of left lower extremity; T87.9 Unspecified complications of amputation stump; I87.2 Venous insufficiency (chronic) (peripheral) | CPT/HCPCS: A9270 ==

== ENCOUNTER 2023-04-06 06:01 | Emergency (ER) | payer OTHER ==
[~2023-04-06] VITALS: Ht 172.7 cm; Wt 115.7 kg
[2023-04-06 07:00] VITALS: BP 110/60
== END 2023-04-06 07:44 | disposition home or self-care (01) ==
LOC: ER 06:01
DX: S80.812A Abrasion, left lower leg, initial encounter (principal); R60.0 Localized edema; E11.9 Type 2 diabetes mellitus without complications; I10 Essential (primary) hypertension; E78.00 Pure hypercholesterolemia, unspecified; I25.10 Atherosclerotic heart disease of native coronary artery without angina pectoris; F17.220 Nicotine dependence, chewing tobacco, uncomplicated; Z79.84 Long term (current) use of oral hypoglycemic drugs; Z79.4 Long term (current) use of insulin; Z79.82 Long term (current) use of aspirin; Z79.899 Other long term (current) drug therapy; X58.XXXA Exposure to other specified factors, initial encounter
CPT/HCPCS: 99283; A9270

== ENCOUNTER 2023-04-09 04:05 | Day surgery (SDC) | payer OTHER | END 2023-04-09 23:08 | disposition home or self-care (01) | LOC: WOUND 04:05 | DX: T87.89 Other complications of amputation stump (principal); E11.622 Type 2 diabetes mellitus with other skin ulcer; L97.812 Non-pressure chronic ulcer of other part of right lower leg with fat layer exposed; I87.312 Chronic venous hypertension (idiopathic) with ulcer of left lower extremity; I87.2 Venous insufficiency (chronic) (peripheral); S80.812D Abrasion, left lower leg, subsequent encounter | CPT/HCPCS: A9270; G0463 ==

== ENCOUNTER 2023-04-16 01:20 | Day surgery (SDC) | payer OTHER | END 2023-04-16 23:20 | disposition home or self-care (01) | LOC: WOUND 01:20 | DX: T87.89 Other complications of amputation stump (principal); E11.622 Type 2 diabetes mellitus with other skin ulcer; L97.812 Non-pressure chronic ulcer of other part of right lower leg with fat layer exposed; I87.312 Chronic venous hypertension (idiopathic) with ulcer of left lower extremity; I87.2 Venous insufficiency (chronic) (peripheral) | CPT/HCPCS: A9270 ==

== ENCOUNTER 2023-04-23 02:18 | Day surgery (SDC) | payer OTHER | END 2023-04-23 22:58 | disposition home or self-care (01) | LOC: WOUND 02:18 | DX: E11.622 Type 2 diabetes mellitus with other skin ulcer (principal); L97.812 Non-pressure chronic ulcer of other part of right lower leg with fat layer exposed; L97.822 Non-pressure chronic ulcer of other part of left lower leg with fat layer exposed; I87.312 Chronic venous hypertension (idiopathic) with ulcer of left lower extremity; T87.9 Unspecified complications of amputation stump; I87.2 Venous insufficiency (chronic) (peripheral) | CPT/HCPCS: A9270 ==

== ENCOUNTER 2023-04-30 02:19 | Day surgery (SDC) | payer OTHER | END 2023-04-30 23:11 | disposition home or self-care (01) | LOC: WOUND 02:19 | DX: T87.89 Other complications of amputation stump (principal); E11.622 Type 2 diabetes mellitus with other skin ulcer; S80.812D Abrasion, left lower leg, subsequent encounter; I87.312 Chronic venous hypertension (idiopathic) with ulcer of left lower extremity; I87.2 Venous insufficiency (chronic) (peripheral) | CPT/HCPCS: A9270 ==

== ENCOUNTER 2023-05-07 05:37 | Day surgery (SDC) | payer OTHER ==
[2023-05-08] MEDS ORDERED: AMOCLA875 PO (06:24)
== END 2023-05-07 22:48 | disposition home or self-care (01) ==
LOC: WOUND 05:37
DX: T87.89 Other complications of amputation stump (principal); E11.622 Type 2 diabetes mellitus with other skin ulcer; L97.812 Non-pressure chronic ulcer of other part of right lower leg with fat layer exposed; I87.312 Chronic venous hypertension (idiopathic) with ulcer of left lower extremity; I87.2 Venous insufficiency (chronic) (peripheral)
CPT/HCPCS: A9270

== ENCOUNTER 2023-05-08 05:36 | Emergency (ER) | payer OTHER ==
[~2023-05-08] VITALS: Ht 170.2 cm; Wt 113.4 kg
[2023-05-08 05:40] VITALS: BP 134/74
[2023-05-08] MEDS ORDERED: AMOCLA875 PO (06:24)
== END 2023-05-08 06:34 | disposition home or self-care (01) ==
LOC: ER 05:36
DX: S61.250A Open bite of right index finger without damage to nail, initial encounter (principal); S61.451A Open bite of right hand, initial encounter; L08.9 Local infection of the skin and subcutaneous tissue, unspecified; W55.01XA Bitten by cat, initial encounter; F17.220 Nicotine dependence, chewing tobacco, uncomplicated; E11.9 Type 2 diabetes mellitus without complications; I10 Essential (primary) hypertension; Z91.040 Latex allergy status; Z91.09 Other allergy status, other than to drugs and biological substances; Z79.82 Long term (current) use of aspirin; Z79.4 Long term (current) use of insulin; Z79.899 Other long term (current) drug therapy
CPT/HCPCS: 99283; A9270

== ENCOUNTER 2023-05-14 02:46 | Day surgery (SDC) | payer OTHER | END 2023-05-14 22:56 | disposition home or self-care (01) | LOC: WOUND 02:46 | DX: T87.89 Other complications of amputation stump (principal); E11.622 Type 2 diabetes mellitus with other skin ulcer; L97.812 Non-pressure chronic ulcer of other part of right lower leg with fat layer exposed; I87.2 Venous insufficiency (chronic) (peripheral); I87.312 Chronic venous hypertension (idiopathic) with ulcer of left lower extremity | CPT/HCPCS: A9270 ==

== ENCOUNTER 2023-05-21 01:16 | Day surgery (SDC) | payer OTHER | END 2023-05-21 22:51 | disposition home or self-care (01) | LOC: WOUND 01:16 | DX: I87.312 Chronic venous hypertension (idiopathic) with ulcer of left lower extremity (principal); T87.9 Unspecified complications of amputation stump; E11.622 Type 2 diabetes mellitus with other skin ulcer; L97.922 Non-pressure chronic ulcer of unspecified part of left lower leg with fat layer exposed; L97.912 Non-pressure chronic ulcer of unspecified part of right lower leg with fat layer exposed; S80.812A Abrasion, left lower leg, initial encounter; X58.XXXA Exposure to other specified factors, initial encounter; Y83.8 Other surgical procedures as the cause of abnormal reaction of the patient, or of later complication, without mention of misadventure at the time of the procedure | CPT/HCPCS: A9270; G0463 ==

== ENCOUNTER 2023-05-30 01:41 | Day surgery (SDC) | payer OTHER | END 2023-05-30 22:43 | disposition home or self-care (01) | LOC: WOUND 01:41 | DX: E11.622 Type 2 diabetes mellitus with other skin ulcer (principal); L97.822 Non-pressure chronic ulcer of other part of left lower leg with fat layer exposed; L97.812 Non-pressure chronic ulcer of other part of right lower leg with fat layer exposed; I87.312 Chronic venous hypertension (idiopathic) with ulcer of left lower extremity; T87.9 Unspecified complications of amputation stump; I87.2 Venous insufficiency (chronic) (peripheral) | CPT/HCPCS: A9270; G0463 ==

== ENCOUNTER 2023-06-04 04:36 | Day surgery (SDC) | payer OTHER | END 2023-06-04 23:02 | disposition home or self-care (01) | LOC: WOUND 04:36 | DX: E11.622 Type 2 diabetes mellitus with other skin ulcer (principal); L97.812 Non-pressure chronic ulcer of other part of right lower leg with fat layer exposed; S81.812A Laceration without foreign body, left lower leg, initial encounter; X58.XXXA Exposure to other specified factors, initial encounter; I87.312 Chronic venous hypertension (idiopathic) with ulcer of left lower extremity; T87.9 Unspecified complications of amputation stump; I87.2 Venous insufficiency (chronic) (peripheral) | CPT/HCPCS: G0463 ==

== ENCOUNTER 2023-06-11 04:48 | Day surgery (SDC) | payer OTHER | END 2023-06-11 23:00 | disposition home or self-care (01) | LOC: WOUND 04:48 | DX: T87.89 Other complications of amputation stump (principal); E11.622 Type 2 diabetes mellitus with other skin ulcer; L97.812 Non-pressure chronic ulcer of other part of right lower leg with fat layer exposed; S80.812D Abrasion, left lower leg, subsequent encounter; I87.311 Chronic venous hypertension (idiopathic) with ulcer of right lower extremity; I87.2 Venous insufficiency (chronic) (peripheral) | CPT/HCPCS: A9270; G0463 ==

== ENCOUNTER → 2023-06-25 | Day surgery (SDC) | payer OTHER | END | disposition home or self-care (01) | LOC: WOUND | DX: T87.89 Other complications of amputation stump (principal); E11.622 Type 2 diabetes mellitus with other skin ulcer; L97.812 Non-pressure chronic ulcer of other part of right lower leg with fat layer exposed; S80.812D Abrasion, left lower leg, subsequent encounter; I87.312 Chronic venous hypertension (idiopathic) with ulcer of left lower extremity | CPT/HCPCS: A9270; G0463 ==

== ENCOUNTER 2023-07-02 02:33 | Day surgery (SDC) | payer OTHER | END 2023-07-02 23:31 | disposition home or self-care (01) | LOC: WOUND 02:33 | DX: E11.622 Type 2 diabetes mellitus with other skin ulcer (principal); L97.812 Non-pressure chronic ulcer of other part of right lower leg with fat layer exposed; I87.312 Chronic venous hypertension (idiopathic) with ulcer of left lower extremity; T87.9 Unspecified complications of amputation stump | CPT/HCPCS: A9270; G0463 ==

== ENCOUNTER 2023-07-09 05:06 | Day surgery (SDC) | payer OTHER | END 2023-07-09 23:12 | disposition home or self-care (01) | LOC: WOUND 05:06 | DX: T87.89 Other complications of amputation stump (principal); T87.43 Infection of amputation stump, right lower extremity; E11.622 Type 2 diabetes mellitus with other skin ulcer; S80.812D Abrasion, left lower leg, subsequent encounter; L97.812 Non-pressure chronic ulcer of other part of right lower leg with fat layer exposed; I87.312 Chronic venous hypertension (idiopathic) with ulcer of left lower extremity; I87.2 Venous insufficiency (chronic) (peripheral); Z51.89 Encounter for other specified aftercare; I10 Essential (primary) hypertension; E78.00 Pure hypercholesterolemia, unspecified; I25.10 Atherosclerotic heart disease of native coronary artery without angina pectoris; F17.220 Nicotine dependence, chewing tobacco, uncomplicated; Z89.511 Acquired absence of right leg below knee; Z79.82 Long term (current) use of aspirin; Z79.84 Long term (current) use of oral hypoglycemic drugs; Z79.4 Long term (current) use of insulin | CPT/HCPCS: 99283; A9270; G0463 ==

== ENCOUNTER → 2023-07-11 | Outpatient (CLI) | payer OTHER | END | disposition home or self-care (01) | LOC: LAB SHORT 10:34 → LAB 10:34 | DX: E11.622 Type 2 diabetes mellitus with other skin ulcer (principal) | CPT/HCPCS: 83036 ==

== ENCOUNTER 2023-07-16 02:35 | Day surgery (SDC) | payer OTHER | END 2023-07-16 22:59 | disposition home or self-care (01) | LOC: WOUND 02:35 | DX: T87.43 Infection of amputation stump, right lower extremity (principal); E11.622 Type 2 diabetes mellitus with other skin ulcer; L97.812 Non-pressure chronic ulcer of other part of right lower leg with fat layer exposed; I87.312 Chronic venous hypertension (idiopathic) with ulcer of left lower extremity; I87.2 Venous insufficiency (chronic) (peripheral) | CPT/HCPCS: A9270 ==

== ENCOUNTER 2023-07-23 04:46 | Day surgery (SDC) | payer OTHER | END 2023-07-23 23:32 | disposition home or self-care (01) | LOC: WOUND 04:46 | DX: E11.622 Type 2 diabetes mellitus with other skin ulcer (principal); L97.812 Non-pressure chronic ulcer of other part of right lower leg with fat layer exposed; I87.312 Chronic venous hypertension (idiopathic) with ulcer of left lower extremity; T87.9 Unspecified complications of amputation stump; I87.2 Venous insufficiency (chronic) (peripheral) | CPT/HCPCS: A9270 ==

== ENCOUNTER 2023-07-30 02:01 | Day surgery (SDC) | payer OTHER | END 2023-07-30 22:56 | disposition home or self-care (01) | LOC: WOUND 02:01 | DX: E11.622 Type 2 diabetes mellitus with other skin ulcer (principal); L97.812 Non-pressure chronic ulcer of other part of right lower leg with fat layer exposed; L97.122 Non-pressure chronic ulcer of left thigh with fat layer exposed; S80.812D Abrasion, left lower leg, subsequent encounter; L89.622 Pressure ulcer of left heel, stage 2; E11.621 Type 2 diabetes mellitus with foot ulcer; L97.422 Non-pressure chronic ulcer of left heel and midfoot with fat layer exposed; I87.312 Chronic venous hypertension (idiopathic) with ulcer of left lower extremity; T87.9 Unspecified complications of amputation stump; X58.XXXD Exposure to other specified factors, subsequent encounter | CPT/HCPCS: A9270; G0463 ==

== ENCOUNTER 2023-08-06 06:13 | Day surgery (SDC) | payer OTHER | END 2023-08-06 23:04 | disposition home or self-care (01) | LOC: WOUND 06:13 | DX: E11.621 Type 2 diabetes mellitus with foot ulcer (principal); L97.422 Non-pressure chronic ulcer of left heel and midfoot with fat layer exposed; T87.89 Other complications of amputation stump; I87.312 Chronic venous hypertension (idiopathic) with ulcer of left lower extremity; I87.2 Venous insufficiency (chronic) (peripheral) | CPT/HCPCS: A9270 ==

== ENCOUNTER 2023-08-13 02:28 | Day surgery (SDC) | payer OTHER | END 2023-08-13 23:13 | disposition home or self-care (01) | LOC: WOUND 02:28 | DX: E11.621 Type 2 diabetes mellitus with foot ulcer (principal); L97.422 Non-pressure chronic ulcer of left heel and midfoot with fat layer exposed; L97.812 Non-pressure chronic ulcer of other part of right lower leg with fat layer exposed; E11.622 Type 2 diabetes mellitus with other skin ulcer; I87.312 Chronic venous hypertension (idiopathic) with ulcer of left lower extremity; T87.89 Other complications of amputation stump; I87.2 Venous insufficiency (chronic) (peripheral) | CPT/HCPCS: A9270; G0463 ==

== ENCOUNTER 2023-08-20 01:55 | Day surgery (SDC) | payer OTHER | END 2023-08-20 22:41 | disposition home or self-care (01) | LOC: WOUND 01:55 | DX: I87.312 Chronic venous hypertension (idiopathic) with ulcer of left lower extremity (principal); E11.622 Type 2 diabetes mellitus with other skin ulcer; L97.812 Non-pressure chronic ulcer of other part of right lower leg with fat layer exposed; E11.621 Type 2 diabetes mellitus with foot ulcer; T87.9 Unspecified complications of amputation stump; I87.2 Venous insufficiency (chronic) (peripheral) | CPT/HCPCS: G0463 ==

== ENCOUNTER 2023-08-27 02:14 | Day surgery (SDC) | payer OTHER | END 2023-08-27 22:49 | disposition home or self-care (01) | LOC: WOUND 02:14 | DX: E11.622 Type 2 diabetes mellitus with other skin ulcer (principal); L97.812 Non-pressure chronic ulcer of other part of right lower leg with fat layer exposed; E11.621 Type 2 diabetes mellitus with foot ulcer; L97.422 Non-pressure chronic ulcer of left heel and midfoot with fat layer exposed; I87.312 Chronic venous hypertension (idiopathic) with ulcer of left lower extremity; T87.9 Unspecified complications of amputation stump; S80.812D Abrasion, left lower leg, subsequent encounter; X58.XXXD Exposure to other specified factors, subsequent encounter | CPT/HCPCS: A9270 ==

== ENCOUNTER 2023-09-03 03:19 | Day surgery (SDC) | payer OTHER | END 2023-09-03 23:06 | disposition home or self-care (01) | LOC: WOUND 03:19 | DX: E11.622 Type 2 diabetes mellitus with other skin ulcer (principal); E11.621 Type 2 diabetes mellitus with foot ulcer; L97.822 Non-pressure chronic ulcer of other part of left lower leg with fat layer exposed; L89.629 Pressure ulcer of left heel, unspecified stage; T87.89 Other complications of amputation stump; I87.312 Chronic venous hypertension (idiopathic) with ulcer of left lower extremity | CPT/HCPCS: A9270; G0463 ==

== ENCOUNTER 2023-09-10 08:00 | Day surgery (SDC) | payer OTHER | END 2023-09-10 23:59 | disposition home or self-care (01) | LOC: WOUND 08:00 | DX: E11.622 Type 2 diabetes mellitus with other skin ulcer (principal); L97.812 Non-pressure chronic ulcer of other part of right lower leg with fat layer exposed; E11.621 Type 2 diabetes mellitus with foot ulcer; L97.422 Non-pressure chronic ulcer of left heel and midfoot with fat layer exposed; S80.812A Abrasion, left lower leg, initial encounter; X58.XXXA Exposure to other specified factors, initial encounter; I87.312 Chronic venous hypertension (idiopathic) with ulcer of left lower extremity; T87.9 Unspecified complications of amputation stump; I87.2 Venous insufficiency (chronic) (peripheral) | CPT/HCPCS: A9270 ==

== ENCOUNTER 2023-09-24 03:01 | Day surgery (SDC) | payer OTHER | END 2023-09-24 23:06 | disposition home or self-care (01) | LOC: WOUND 03:01 | DX: E11.621 Type 2 diabetes mellitus with foot ulcer (principal); L97.422 Non-pressure chronic ulcer of left heel and midfoot with fat layer exposed; L89.622 Pressure ulcer of left heel, stage 2; S80.812D Abrasion, left lower leg, subsequent encounter; I87.312 Chronic venous hypertension (idiopathic) with ulcer of left lower extremity; T87.9 Unspecified complications of amputation stump; E11.622 Type 2 diabetes mellitus with other skin ulcer; L97.812 Non-pressure chronic ulcer of other part of right lower leg with fat layer exposed; X58.XXXD Exposure to other specified factors, subsequent encounter | CPT/HCPCS: A9270 ==

== ENCOUNTER 2023-09-26 09:47 | Emergency (ER) | payer OTHER ==
[~2023-09-26] VITALS: Ht 172.7 cm; Wt 99.8 kg
[2023-09-26] MEDS ORDERED: PANTOPRAZOLE SO40 M2 PO (10:08)
[2023-09-26] MEDS ORDERED: Cipro500 MG PO (10:08)
[2023-09-26] MEDS ORDERED: TAMSULOSIN HCL0.4 M1 PO (10:08)
[2023-09-26 10:20] LABS: BASOPHILS ABSOLUTE AUTO 0.07 K/mm3 (0.00-0.23); BASOPHILS PERCENT AUTO 1 % (0-2); EOSINOPHILS ABSOLUTE AUTO 0.19 K/mm3 (0.00-0.68); EOSINOPHILS PERCENT AUTO 2 % (0-6); Hematocrit 37.7 % (37.0-53.0); Hemoglobin 12.3 g/dL (13.5-17.5); IMMATURE GRAN ABSOLUTE AUTO 0.05 K/mm3 (0.00-0.10); IMMATURE GRAN PERCENT AUTO 1 % (0-1); LYMPHOCYTES ABSOLUTE AUTO 1.29 K/mm3 (0.84-5.20); LYMPHOCYTES PERCENT AUTO 14 % (21-46); MONOCYTES ABSOLUTE AUTO 1.34 K/mm3 (0.16-1.47); MONOCYTES PERCENT AUTO 15 % (4-13); Mean Corpuscular HGB 27.2 pg (26.0-34.0); Mean Corpuscular HGB Conc 32.6 g/dL (31.5-36.5); Mean Corpuscular Volume 83 fL (80-100); Mean Platelet Volume 10.1 fL (9.1-12.4); NEUTROPHILS ABSOLUTE AUTO 6.15 K/mm3 (1.96-9.15); NEUTROPHILS PERCENT AUTO 68 % (41-73); Platelet Count 382 K/mm3 (150-400); RDW Coefficient Variation 15.9 % (11.7-14.2); Red Blood Cell Count 4.53 M/mm3 (4.30-5.90); White Blood Cell Count 9.09 K/mm3 (4.00-11.30)
[2023-09-26 10:35] LABS: Albumin, Blood 3.3 g/dL (3.4-5.0); Albumin/Globulin Ratio 0.6 (0.8-1.8); Bilirubin, Total 0.6 mg/dL (0.1-1.0); Bun/Creatinine Ratio 32.2 (12.0-20.0); Calcium, Blood 9.5 mg/dL (8.5-10.1); Creatinine, Blood 1.15 mg/dL (0.60-1.20); Globulin, Blood 5.5 g/dL (2.2-4.0); Potassium, Blood 4.5 mmol/L (3.5-5.5); Total Protein, Blood 8.8 g/dL (6.4-8.2)
[2023-09-26 13:28] LABS: Source, Urine Clean Catch
[2023-09-26 13:30] LABS: Appearance, Urine Cloudy (Clear); Bilirubin, Urine Neg (Neg); Blood, Urine 5+ (Neg); Color, Urine Yellow (P-Yellow); Glucose Qualitative, Urine 4+ (Neg); Ketones, Urine Neg (Neg); Leukocyte Esterase, Urine 3+ (Neg); Nitrite, Urine Neg (Neg); Protein, Urine 2+ (Neg); Urobilinogen, Urine NORM (Normal)
[2023-09-26 13:37] LABS: Squamous Epithelial Cells Few /hpf (Few); White Blood Cells, Urine TNTC /hpf (0-5)
[2023-09-26 13:38] LABS: Bacteria Many /hpf
[2023-09-26] MEDS ORDERED: Acetaminophen500 MG PO (13:49)
[2023-09-26] MEDS ORDERED: CEFP200 PO (13:49)
[2023-09-26 14:45] VITALS: BP 144/78
== END 2023-09-26 15:12 | disposition home or self-care (01) ==
LOC: ER 09:47
PROVIDERS: Student in an Organized Health Care Education/Training Program
DX: N12 Tubulo-interstitial nephritis, not specified as acute or chronic (principal); R55 Syncope and collapse; I10 Essential (primary) hypertension; I25.10 Atherosclerotic heart disease of native coronary artery without angina pectoris; I73.9 Peripheral vascular disease, unspecified; E11.9 Type 2 diabetes mellitus without complications; I25.2 Old myocardial infarction; E78.00 Pure hypercholesterolemia, unspecified; F17.220 Nicotine dependence, chewing tobacco, uncomplicated; Z79.4 Long term (current) use of insulin; Z79.84 Long term (current) use of oral hypoglycemic drugs; Z79.82 Long term (current) use of aspirin; Z79.51 Long term (current) use of inhaled steroids; Z79.899 Other long term (current) drug therapy; Z91.040 Latex allergy status; Z91.048 Other nonmedicinal substance allergy status
CPT/HCPCS: 74177; 80053; 81001; 85025; 87077; 87086; 87186; 93005; 93010; 96365; 96375; 99285-25; J0696; J1885; J7030; Q9967

== ENCOUNTER 2023-10-01 01:33 | Day surgery (SDC) | payer OTHER ==
[~2023-10-01 01:33] MED LIST changes: +Acetaminophen500 MG PO; +CEFP200 PO; +Cipro500 MG PO; +PANTOPRAZOLE SO40 M2 PO; +TAMSULOSIN HCL0.4 M1 PO
== END 2023-10-01 23:26 | disposition home or self-care (01) ==
LOC: WOUND 01:33
DX: E11.622 Type 2 diabetes mellitus with other skin ulcer (principal); L97.813 Non-pressure chronic ulcer of other part of right lower leg with necrosis of muscle; L89.622 Pressure ulcer of left heel, stage 2; E11.621 Type 2 diabetes mellitus with foot ulcer; L97.422 Non-pressure chronic ulcer of left heel and midfoot with fat layer exposed; S80.812D Abrasion, left lower leg, subsequent encounter; X58.XXXD Exposure to other specified factors, subsequent encounter; I87.312 Chronic venous hypertension (idiopathic) with ulcer of left lower extremity; T87.9 Unspecified complications of amputation stump
CPT/HCPCS: A9270

== ENCOUNTER 2023-10-08 02:59 | Day surgery (SDC) | payer OTHER | END 2023-10-08 23:27 | disposition home or self-care (01) | LOC: WOUND 02:59 | DX: E11.621 Type 2 diabetes mellitus with foot ulcer (principal); L97.422 Non-pressure chronic ulcer of left heel and midfoot with fat layer exposed; L89.622 Pressure ulcer of left heel, stage 2; E11.622 Type 2 diabetes mellitus with other skin ulcer; L97.812 Non-pressure chronic ulcer of other part of right lower leg with fat layer exposed; T87.9 Unspecified complications of amputation stump; I87.312 Chronic venous hypertension (idiopathic) with ulcer of left lower extremity; S80.812A Abrasion, left lower leg, initial encounter; X58.XXXA Exposure to other specified factors, initial encounter | CPT/HCPCS: A9270 ==

== ENCOUNTER 2023-10-15 02:53 | Day surgery (SDC) | payer OTHER | END 2023-10-15 23:08 | disposition home or self-care (01) | LOC: WOUND 02:53 | DX: E11.621 Type 2 diabetes mellitus with foot ulcer (principal); L97.422 Non-pressure chronic ulcer of left heel and midfoot with fat layer exposed; E11.622 Type 2 diabetes mellitus with other skin ulcer; L97.813 Non-pressure chronic ulcer of other part of right lower leg with necrosis of muscle; I87.312 Chronic venous hypertension (idiopathic) with ulcer of left lower extremity; T87.9 Unspecified complications of amputation stump; S80.812D Abrasion, left lower leg, subsequent encounter; X58.XXXD Exposure to other specified factors, subsequent encounter | CPT/HCPCS: A9270 ==

== ENCOUNTER 2023-10-17 04:07 | Day surgery (SDC) | payer OTHER | END 2023-10-18 00:12 | disposition home or self-care (01) | LOC: WOUND 04:07 | DX: E11.622 Type 2 diabetes mellitus with other skin ulcer (principal); L97.812 Non-pressure chronic ulcer of other part of right lower leg with fat layer exposed; I87.312 Chronic venous hypertension (idiopathic) with ulcer of left lower extremity; T87.9 Unspecified complications of amputation stump; I87.2 Venous insufficiency (chronic) (peripheral); E11.621 Type 2 diabetes mellitus with foot ulcer | CPT/HCPCS: A9270 ==

== ENCOUNTER 2023-10-22 02:56 | Day surgery (SDC) | payer OTHER | END 2023-10-22 23:23 | disposition home or self-care (01) | LOC: WOUND 02:56 | DX: E11.622 Type 2 diabetes mellitus with other skin ulcer (principal); L97.812 Non-pressure chronic ulcer of other part of right lower leg with fat layer exposed; E11.621 Type 2 diabetes mellitus with foot ulcer; L97.422 Non-pressure chronic ulcer of left heel and midfoot with fat layer exposed; L89.622 Pressure ulcer of left heel, stage 2; I87.312 Chronic venous hypertension (idiopathic) with ulcer of left lower extremity; T87.9 Unspecified complications of amputation stump; I87.2 Venous insufficiency (chronic) (peripheral); S80.812D Abrasion, left lower leg, subsequent encounter; X58.XXXD Exposure to other specified factors, subsequent encounter | CPT/HCPCS: 87070; 87075; 87077; 87147; 87186; 87205; A6213; A9270 ==

== ENCOUNTER 2023-10-29 01:35 | Day surgery (SDC) | payer OTHER | END 2023-10-29 23:41 | disposition home or self-care (01) | LOC: WOUND 01:35 | DX: T87.89 Other complications of amputation stump (principal); E11.621 Type 2 diabetes mellitus with foot ulcer; L97.422 Non-pressure chronic ulcer of left heel and midfoot with fat layer exposed; I87.312 Chronic venous hypertension (idiopathic) with ulcer of left lower extremity; L97.812 Non-pressure chronic ulcer of other part of right lower leg with fat layer exposed; I87.2 Venous insufficiency (chronic) (peripheral); E11.622 Type 2 diabetes mellitus with other skin ulcer; L98.499 Non-pressure chronic ulcer of skin of other sites with unspecified severity; T87.9 Unspecified complications of amputation stump | CPT/HCPCS: 36415; 73590; 80053; 83036; 85025; 85651; 86140; G0463 ==

== ENCOUNTER 2023-11-05 00:09 | Day surgery (SDC) | payer OTHER ==
[2023-11-05] MEDS ORDERED: Lidocaine HCl 4% Cream 5 GM ONE (12:48)
== END 2023-11-05 22:46 | disposition home or self-care (01) ==
LOC: WOUND 00:09
DX: E11.622 Type 2 diabetes mellitus with other skin ulcer (principal); L97.812 Non-pressure chronic ulcer of other part of right lower leg with fat layer exposed; L97.822 Non-pressure chronic ulcer of other part of left lower leg with fat layer exposed; E11.621 Type 2 diabetes mellitus with foot ulcer; L97.429 Non-pressure chronic ulcer of left heel and midfoot with unspecified severity; I87.312 Chronic venous hypertension (idiopathic) with ulcer of left lower extremity; T87.2 Complications of other reattached body part; I87.2 Venous insufficiency (chronic) (peripheral)
CPT/HCPCS: A9270

== ENCOUNTER 2023-11-12 05:28 | Day surgery (SDC) | payer OTHER ==
[2023-11-12] MEDS ORDERED: Lidocaine HCl 4% Cream 5 GM ONE (10:42)
== END 2023-11-12 23:13 | disposition home or self-care (01) ==
LOC: WOUND 05:28
DX: E11.622 Type 2 diabetes mellitus with other skin ulcer (principal); L97.822 Non-pressure chronic ulcer of other part of left lower leg with fat layer exposed; I87.2 Venous insufficiency (chronic) (peripheral); T87.89 Other complications of amputation stump; L97.812 Non-pressure chronic ulcer of other part of right lower leg with fat layer exposed; I87.313 Chronic venous hypertension (idiopathic) with ulcer of bilateral lower extremity; E11.621 Type 2 diabetes mellitus with foot ulcer
CPT/HCPCS: A6213; A9270; G0463

== ENCOUNTER 2023-11-19 02:07 | Day surgery (SDC) | payer OTHER ==
[2023-11-19] MEDS ORDERED: Triamcinolone Acet 0.1% Cream 15 gm ONE (10:38)
[2023-11-19] MEDS ORDERED: Lidocaine HCl 4% Cream 5 GM ONE (10:39)
== END 2023-11-19 23:05 | disposition home or self-care (01) ==
LOC: WOUND 02:07
DX: E11.622 Type 2 diabetes mellitus with other skin ulcer (principal); L97.812 Non-pressure chronic ulcer of other part of right lower leg with fat layer exposed; L97.822 Non-pressure chronic ulcer of other part of left lower leg with fat layer exposed; I87.312 Chronic venous hypertension (idiopathic) with ulcer of left lower extremity; T87.9 Unspecified complications of amputation stump; I87.2 Venous insufficiency (chronic) (peripheral); E11.621 Type 2 diabetes mellitus with foot ulcer
CPT/HCPCS: A9270

== ENCOUNTER 2023-12-31 02:22 | Day surgery (SDC) | payer OTHER | END 2023-12-31 23:36 | disposition home or self-care (01) | LOC: WOUND 02:22 | DX: E11.622 Type 2 diabetes mellitus with other skin ulcer (principal); L97.812 Non-pressure chronic ulcer of other part of right lower leg with fat layer exposed; I87.312 Chronic venous hypertension (idiopathic) with ulcer of left lower extremity; T87.9 Unspecified complications of amputation stump; I87.2 Venous insufficiency (chronic) (peripheral); E11.621 Type 2 diabetes mellitus with foot ulcer | CPT/HCPCS: A6213 ==

== ENCOUNTER 2024-01-14 03:22 | Day surgery (SDC) | payer OTHER ==
[2024-01-14] MEDS ORDERED: Lidocaine HCl 4% Cream 5 GM ONE (10:46)
== END 2024-01-14 23:03 | disposition home or self-care (01) ==
LOC: WOUND 03:22
DX: E11.622 Type 2 diabetes mellitus with other skin ulcer (principal); L97.812 Non-pressure chronic ulcer of other part of right lower leg with fat layer exposed; I87.311 Chronic venous hypertension (idiopathic) with ulcer of right lower extremity; T87.9 Unspecified complications of amputation stump; I87.2 Venous insufficiency (chronic) (peripheral); E11.621 Type 2 diabetes mellitus with foot ulcer
CPT/HCPCS: A6213; A9270; G0463

== ENCOUNTER 2024-01-21 03:03 | Day surgery (SDC) | payer OTHER | END 2024-01-21 22:49 | disposition home or self-care (01) | LOC: WOUND 03:03 | DX: E11.622 Type 2 diabetes mellitus with other skin ulcer (principal); L97.812 Non-pressure chronic ulcer of other part of right lower leg with fat layer exposed; I87.312 Chronic venous hypertension (idiopathic) with ulcer of left lower extremity; E11.621 Type 2 diabetes mellitus with foot ulcer; T87.9 Unspecified complications of amputation stump; I87.2 Venous insufficiency (chronic) (peripheral) | CPT/HCPCS: A6213; G0463 ==

== ENCOUNTER 2024-01-28 04:29 | Day surgery (SDC) | payer OTHER | END 2024-01-28 23:19 | disposition home or self-care (01) | LOC: WOUND | DX: E11.622 Type 2 diabetes mellitus with other skin ulcer (principal); L97.812 Non-pressure chronic ulcer of other part of right lower leg with fat layer exposed; I87.312 Chronic venous hypertension (idiopathic) with ulcer of left lower extremity; T87.9 Unspecified complications of amputation stump; I87.2 Venous insufficiency (chronic) (peripheral); E11.621 Type 2 diabetes mellitus with foot ulcer | CPT/HCPCS: A6213; G0463 ==

== ENCOUNTER 2024-04-07 02:13 | Day surgery (SDC) | payer OTHER | END 2024-04-09 22:58 | disposition home or self-care (01) | LOC: WOUND 02:13 | DX: T87.81 Dehiscence of amputation stump (principal); Z89.511 Acquired absence of right leg below knee | CPT/HCPCS: A6213; G0463 ==

== ENCOUNTER 2024-04-14 01:23 | Day surgery (SDC) | payer OTHER ==
[2024-04-14] MEDS ORDERED: Lidocaine HCl 4% Cream 5 GM ONE (11:13)
== END 2024-04-15 05:26 | disposition home or self-care (01) ==
LOC: WOUND 01:23
DX: S81.811A Laceration without foreign body, right lower leg, initial encounter (principal); X58.XXXA Exposure to other specified factors, initial encounter; E11.622 Type 2 diabetes mellitus with other skin ulcer; T87.9 Unspecified complications of amputation stump; E11.59 Type 2 diabetes mellitus with other circulatory complications
CPT/HCPCS: A6213; A9270

== ENCOUNTER 2024-04-21 02:40 | Day surgery (SDC) | payer OTHER ==
[2024-04-21] MEDS ORDERED: Lidocaine HCl 4% Cream 5 GM ONE (11:09)
== END 2024-04-21 23:04 | disposition home or self-care (01) ==
LOC: WOUND 02:40
DX: E11.622 Type 2 diabetes mellitus with other skin ulcer (principal); L97.812 Non-pressure chronic ulcer of other part of right lower leg with fat layer exposed; E11.59 Type 2 diabetes mellitus with other circulatory complications
CPT/HCPCS: A6213; A9270

== ENCOUNTER → 2024-05-03 | Outpatient (CLI) | payer OTHER | LOC: LAB SHORT 17:55 → LAB 17:55 | DX: N39.0 Urinary tract infection, site not specified (principal) | CPT/HCPCS: 87077; 87086; 87186 ==

== ENCOUNTER 2024-05-12 05:37 | Day surgery (SDC) | payer OTHER | END 2024-05-12 23:15 | disposition home or self-care (01) | LOC: WOUND 05:37 | DX: T87.89 Other complications of amputation stump (principal); E11.622 Type 2 diabetes mellitus with other skin ulcer; E11.59 Type 2 diabetes mellitus with other circulatory complications | CPT/HCPCS: A6213; G0463 ==

== ENCOUNTER 2024-05-26 04:15 | Day surgery (SDC) | payer OTHER | END 2024-05-26 22:51 | disposition home or self-care (01) | LOC: WOUND 04:15 | DX: E11.622 Type 2 diabetes mellitus with other skin ulcer (principal); T87.9 Unspecified complications of amputation stump; E11.59 Type 2 diabetes mellitus with other circulatory complications | CPT/HCPCS: G0463 ==

== ENCOUNTER 2024-06-14 13:28 | Emergency (ER) | payer OTHER ==
[~2024-06-14] VITALS: Ht 172.7 cm; Wt 92.5 kg
[2024-06-14 14:43] LABS: BASOPHILS ABSOLUTE AUTO 0.06 K/mm3 (0.00-0.23); BASOPHILS PERCENT AUTO 1 % (0-2); EOSINOPHILS ABSOLUTE AUTO 0.24 K/mm3 (0.00-0.68); EOSINOPHILS PERCENT AUTO 4 % (0-6); Hematocrit 36.3 % (37.0-53.0); Hemoglobin 11.8 g/dL (13.5-17.5); IMMATURE GRAN ABSOLUTE AUTO 0.03 K/mm3 (0.00-0.10); IMMATURE GRAN PERCENT AUTO 0 % (0-1); LYMPHOCYTES ABSOLUTE AUTO 1.44 K/mm3 (0.84-5.20); LYMPHOCYTES PERCENT AUTO 21 % (21-46); MONOCYTES ABSOLUTE AUTO 0.84 K/mm3 (0.16-1.47); MONOCYTES PERCENT AUTO 12 % (4-13); Mean Corpuscular HGB 25.2 pg (26.0-34.0); Mean Corpuscular HGB Conc 32.5 g/dL (31.5-36.5); Mean Corpuscular Volume 78 fL (80-100); NEUTROPHILS ABSOLUTE AUTO 4.16 K/mm3 (1.96-9.15); NEUTROPHILS PERCENT AUTO 62 % (41-73); Platelet Count 381 K/mm3 (150-400); RDW Coefficient Variation 18.3 % (11.7-14.2); RDW Standard Deviation 51.5 fL (35.1-46.3); Red Blood Cell Count 4.68 M/mm3 (4.30-5.90); White Blood Cell Count 6.77 K/mm3 (4.00-11.30)
[2024-06-14 15:05] LABS: Albumin, Blood 3.3 g/dL (3.4-5.0); Albumin/Globulin Ratio 0.7 (0.8-1.8); Bilirubin, Total 0.5 mg/dL (0.1-1.0); Bun/Creatinine Ratio 48.8 (12.0-20.0); Calcium, Blood 9.1 mg/dL (8.5-10.1); Creatinine, Blood 0.92 mg/dL (0.60-1.20); Globulin, Blood 4.5 g/dL (2.2-4.0); Potassium, Blood 4.4 mmol/L (3.5-5.5); Total Protein, Blood 7.8 g/dL (6.4-8.2)
[2024-06-14 15:26] LABS: Base Excess Venous -2.8 mmol/L; Bicarbonate Venous 22.7 mmol/L (24.0-30.0); PCO2 Venous 31.8 mmHg (38-42); pH Blood Venous 7.44 (7.34-7.37)
[2024-06-14] MEDS ORDERED: NS 1,000 ML IV SCH (17:30)
[2024-06-14 17:57] LABS: Source, Urine Clean Catch
[2024-06-14 18:07] LABS: Appearance, Urine Cloudy (Clear); Bilirubin, Urine Neg (Neg); Blood, Urine 2+ (Neg); Glucose Qualitative, Urine 4+ (Neg); Ketones, Urine Neg (Neg); Leukocyte Esterase, Urine 3+ (Neg); Nitrite, Urine Pos (Neg); Protein, Urine 1+ (Neg); Urobilinogen, Urine NORM (Normal)
[2024-06-14 18:17] LABS: Color, Urine Pale Yellow (P-Yellow)
[2024-06-14] MEDS ORDERED: INSULANPEN SC (18:17)
[2024-06-14 18:19] LABS: Bacteria Many /hpf; Renal Epithelial Rare /hpf (0-Rare); Squamous Epithelial Cells Rare /hpf (Few); White Blood Cells, Urine 50-100 /hpf (0-5)
[2024-06-14] MEDS ORDERED: SPIR25 PO (18:19)
[2024-06-14] MEDS ORDERED: C COMPLEX1000 M1 PO (18:20)
[2024-06-14] MEDS ORDERED: ZINC15 PO (18:20)
[2024-06-14 18:36] LABS: U Amphetamine Screen Not Detected; U Barbituate Screen Not Detected; U Benzodiazapine Screen Not Detected; U Buprenorphine Screen Not Detected; U Cannabinoids Screen Not Detected; U Cocaine Screen Not Detected; U Methadone Screen Not Detected; U Methamphetamine Screen Not Detected; U Opiates Screen Not Detected; U Oxycodone Screen Not Detected; U Phencyclidine Screen Not Detected
[2024-06-14] MEDS ORDERED: Amoxicillin/Clavulanate K 875 MG Tab PO ONE (18:50)
[2024-06-14] MEDS ORDERED: AMOCLA875 PO (18:51)
[2024-06-14 19:46] VITALS: BP 142/90
== END 2024-06-14 19:59 | disposition home or self-care (01) ==
LOC: ER 13:28
PROVIDERS: Emergency Medicine
DX: N39.0 Urinary tract infection, site not specified (principal); E11.65 Type 2 diabetes mellitus with hyperglycemia; I10 Essential (primary) hypertension; I25.10 Atherosclerotic heart disease of native coronary artery without angina pectoris; E78.00 Pure hypercholesterolemia, unspecified; I25.2 Old myocardial infarction; E11.51 Type 2 diabetes mellitus with diabetic peripheral angiopathy without gangrene; F17.220 Nicotine dependence, chewing tobacco, uncomplicated; Z91.040 Latex allergy status; Z91.048 Other nonmedicinal substance allergy status; Z79.899 Other long term (current) drug therapy; Z79.84 Long term (current) use of oral hypoglycemic drugs; Z79.82 Long term (current) use of aspirin
CPT/HCPCS: 71045; 80053; 81001; 82010; 82803; 85025; 87077; 87086; 87186; 93005; 93010; 96360; 99284-25; A9270; J7030

== ENCOUNTER 2024-07-05 10:29 | Emergency (ER) | payer OTHER ==
[~2024-07-05] VITALS: Ht 172.7 cm; Wt 129.3 kg
[~2024-07-05 10:29] MED LIST changes: +C COMPLEX1000 M1 PO; +INSULANPEN SC; +SPIR25 PO; +ZINC15 PO
[2024-07-05 11:46] LABS: BASOPHILS ABSOLUTE AUTO 0.05 K/mm3 (0.00-0.23); BASOPHILS PERCENT AUTO 1 % (0-2); EOSINOPHILS ABSOLUTE AUTO 0.13 K/mm3 (0.00-0.68); EOSINOPHILS PERCENT AUTO 2 % (0-6); Hematocrit 37.2 % (37.0-53.0); Hemoglobin 11.7 g/dL (13.5-17.5); IMMATURE GRAN ABSOLUTE AUTO 0.04 K/mm3 (0.00-0.10); IMMATURE GRAN PERCENT AUTO 1 % (0-1); LYMPHOCYTES ABSOLUTE AUTO 1.02 K/mm3 (0.84-5.20); LYMPHOCYTES PERCENT AUTO 13 % (21-46); MONOCYTES PERCENT AUTO 12 % (4-13); Mean Corpuscular HGB 24.9 pg (26.0-34.0); Mean Corpuscular HGB Conc 31.5 g/dL (31.5-36.5); Mean Corpuscular Volume 79 fL (80-100); NEUTROPHILS ABSOLUTE AUTO 5.91 K/mm3 (1.96-9.15); NEUTROPHILS PERCENT AUTO 73 % (41-73); RDW Coefficient Variation 18.4 % (11.7-14.2); RDW Standard Deviation 53.3 fL (35.1-46.3); Red Blood Cell Count 4.69 M/mm3 (4.30-5.90); White Blood Cell Count 8.15 K/mm3 (4.00-11.30)
[2024-07-05] MEDS ORDERED: OZEMPIC1 MG/0.72 (11:54)
[2024-07-05 12:05] LABS: Albumin, Blood 3.2 g/dL (3.4-5.0); Albumin/Globulin Ratio 0.7 (0.8-1.8); Bilirubin, Total 0.5 mg/dL (0.1-1.0); Bun/Creatinine Ratio 44.5 (12.0-20.0); Calcium, Blood 8.7 mg/dL (8.5-10.1); Creatinine, Blood 0.9 mg/dL (0.60-1.20); Globulin, Blood 4.4 g/dL (2.2-4.0); Potassium, Blood 4.8 mmol/L (3.5-5.5); Total Protein, Blood 7.6 g/dL (6.4-8.2)
[2024-07-05] MEDS ORDERED: Mag Hydrox/AL Hydrox/Simeth 30 ML UDC PO ONE (12:15)
[2024-07-05 12:20] LABS: Mean Platelet Volume 10.4 fL (9.1-12.4)
[2024-07-05 14:30] VITALS: BP 105/84
== END 2024-07-05 14:55 | disposition home or self-care (01) ==
LOC: ER 10:29
PROVIDERS: Physician Assistant
DX: R07.9 Chest pain, unspecified (principal); K43.9 Ventral hernia without obstruction or gangrene; R11.10 Vomiting, unspecified; E11.9 Type 2 diabetes mellitus without complications; I10 Essential (primary) hypertension; E78.00 Pure hypercholesterolemia, unspecified; I25.2 Old myocardial infarction; F17.220 Nicotine dependence, chewing tobacco, uncomplicated; Z79.82 Long term (current) use of aspirin; Z79.899 Other long term (current) drug therapy; Z91.040 Latex allergy status; Z91.048 Other nonmedicinal substance allergy status
CPT/HCPCS: 36415; 71046; 76857; 80053; 83605; 84484; 85025; 93005; 93010; 99285-25; A9270

== ENCOUNTER 2024-08-27 07:52 | Day surgery (SDC) | payer OTHER ==
[~2024-08-27] VITALS: Ht 172.7 cm; Wt 125.2 kg
[~2024-08-27 07:52] MED LIST changes: +CEPH250A PO; +INSULANI; +Lactated Ringer's 1,000 ML IV SCH; +OZEMPIC1 MG/0.72
[2024-08-27 08:35] VITALS: BP 115/66
[2024-08-27] MEDS ORDERED: TAMS.4ER PO (08:44)
[2024-08-27] MEDS ORDERED: HUMALOG KW100 UNIT/1 (08:47)
[2024-08-27] MEDS ORDERED: propofoL 40 ML IV ONE (09:03)
--- NOTE | 2024-08-27 09:06 | NUR ---
Pt present to Day Surgery in . Per pt, he is unable to stand on our scale for accurate height/weight. We obtained a stated height, and were able to get an accurate weight in the ER using their weight chair. History, Chart, Medications and Allergies reviewed before start of procedure. Lungs clear T/O to Auscultation. Patient confirms NPO status and agrees with scheduled surgery. Pre-Op teaching done. Pt verbalizes understanding. Patient States Post-Procedure ride home has been arranged.
--- NOTE | 2024-08-27 09:43 | NUR ---
08/27/24 0943 Susan Esparza 0951- History, Chart, Medications and Allergies reviewed before start of procedure.MONITOR INTACT WITH CONTINUOUS PULSE OXIMETRY, CONTINUOUS END TITAL CO2, AND INTERMITTENT BLOOD PRESSURE.3-LEAD EKG REVIEWED WITH PHYSICIAN PRIOR TO START OF PROCEDURE.O2 VIA POM INTACT THROUGHOUT SEDATION/PROCEDURE.ISRAEL MOCTEZUMA PROVIDING MAC-SEE ANESTHESIA RECORD.
[2024-08-27 10:09] VITALS: BP 106/75
[2024-08-27 10:15] VITALS: BP 107/70
[2024-08-27 10:30] VITALS: BP 104/64
--- NOTE | 2024-08-27 10:51 | NUR ---
DR JHA HERE TO DISCUSS CASE. CAREGIVER PRESENT.
--- NOTE | 2024-08-27 10:55 | NUR ---
PT TO W/C WITH CAREGIVER PRESENT. Discharge instructions reviewed with patient. Patient verbalizes understanding. Copy given to patient to take home, WELL CAREGIVER. Patient States Post-Procedure ride home has been arranged. Discharged via OWN wheelchair to private car for ride home. PT TOLERATING PO, DENIES N/V,PAIN. REPORTS READY TO GO HOME. PT VOIDED ON SIDE OF BED USING URINAL.
== END 2024-08-27 10:55 | disposition home or self-care (01) ==
LOC: ORSCMMR 07:52 → ORD 09:15 → ORSCMMR 10:55
PROVIDERS: Surgery
PROC: 0DBK8ZX Excision of Ascending Colon, Via Natural or Artificial Opening Endoscopic, Diagnostic (ICD-10-PCS; principal; 2024-08-27 09:15)
PROC: 0DBM8ZX Excision of Descending Colon, Via Natural or Artificial Opening Endoscopic, Diagnostic (ICD-10-PCS; principal; 2024-08-27 09:15)
PROC: 0DBN8ZX Excision of Sigmoid Colon, Via Natural or Artificial Opening Endoscopic, Diagnostic (ICD-10-PCS; principal; 2024-08-27 09:15)
DX: Z12.11 Encounter for screening for malignant neoplasm of colon (principal); D12.2 Benign neoplasm of ascending colon; D12.4 Benign neoplasm of descending colon; D12.5 Benign neoplasm of sigmoid colon; K63.5 Polyp of colon; I25.10 Atherosclerotic heart disease of native coronary artery without angina pectoris; I25.83 Coronary atherosclerosis due to lipid rich plaque; E11.621 Type 2 diabetes mellitus with foot ulcer; N18.9 Chronic kidney disease, unspecified; Z79.02 Long term (current) use of antithrombotics/antiplatelets; I10 Essential (primary) hypertension; E78.5 Hyperlipidemia, unspecified; E11.9 Type 2 diabetes mellitus without complications; I48.91 Unspecified atrial fibrillation; F17.220 Nicotine dependence, chewing tobacco, uncomplicated; I25.2 Old myocardial infarction; E66.01 Morbid (severe) obesity due to excess calories; Z68.41 Body mass index [BMI] 40.0-44.9, adult; Z79.4 Long term (current) use of insulin; Z79.85 Long-term (current) use of injectable non-insulin antidiabetic drugs; Z79.82 Long term (current) use of aspirin
CPT/HCPCS: 82947; 88305; J2704; J7120

== ENCOUNTER 2024-12-05 12:04 | Emergency (ER) | payer OTHER ==
[~2024-12-05] VITALS: Ht 177.8 cm; Wt 117.9 kg
[~2024-12-05 12:04] MED LIST changes: +HUMALOG KW100 UNIT/1; -Lactated Ringer's 1,000 ML IV SCH; +TAMS.4ER PO
[2024-12-05 16:00] VITALS: BP 104/67
== END 2024-12-05 16:46 | disposition home or self-care (01) ==
LOC: ER 12:04
DX: S00.01XA Abrasion of scalp, initial encounter (principal); I10 Essential (primary) hypertension; E11.9 Type 2 diabetes mellitus without complications; Z91.048 Other nonmedicinal substance allergy status; Z91.040 Latex allergy status; Z79.83 Long term (current) use of bisphosphonates; Z79.84 Long term (current) use of oral hypoglycemic drugs; Z79.82 Long term (current) use of aspirin; Z79.899 Other long term (current) drug therapy; Z79.4 Long term (current) use of insulin; Z79.2 Long term (current) use of antibiotics; W06.XXXA Fall from bed, initial encounter
CPT/HCPCS: 70450; 99283-25

== ENCOUNTER 2025-02-25 01:36 | Day surgery (SDC) | payer OTHER ==
[2025-02-25] MEDS ORDERED: Lidocaine HCl 4% Cream 5 GM ONE (10:39)
== END 2025-02-25 23:00 | disposition home or self-care (01) ==
LOC: WOUND 01:36
DX: E11.622 Type 2 diabetes mellitus with other skin ulcer (principal); L97.822 Non-pressure chronic ulcer of other part of left lower leg with fat layer exposed; E11.51 Type 2 diabetes mellitus with diabetic peripheral angiopathy without gangrene; I12.9 Hypertensive chronic kidney disease with stage 1 through stage 4 chronic kidney disease, or unspecified chronic kidney disease; E11.22 Type 2 diabetes mellitus with diabetic chronic kidney disease; N18.9 Chronic kidney disease, unspecified; Z91.018 Allergy to other foods; Z91.040 Latex allergy status; Z89.511 Acquired absence of right leg below knee
CPT/HCPCS: A9270

== ENCOUNTER → 2025-05-10 | Outpatient (CLI) | payer OTHER | END | disposition home or self-care (01) | LOC: LAB SHORT 16:12 → LAB 16:12 | DX: L03.116 Cellulitis of left lower limb (principal) | CPT/HCPCS: 87070; 87077; 87186; 87205 ==